=== PATIENT | female | born 1955 | race Caucasian/White ===

== ENCOUNTER 2018-10-22 17:16 | Inpatient (IN) | payer MEDICARE, OTHER ==
[2018-10-22] MEDS ORDERED: Sodium Chloride 0.9% 1,000 ML IV ONE ×3 (17:24→19:40)
[2018-10-22] MEDS ORDERED: cefTRIAXone 1 GM in Sodium Chloride 0.9% 50 ML IV ONE (18:26)
--- NOTE | 2018-10-22 18:26 | EDM.PDOC ---
ED HPI GENERAL MEDICAL PROBLEM - General Chief Complaint: General Stated Complaint: ILL Time Seen by Provider: 10/22/18 17:18 Source of Information: Reports: Patient, EMS, Family History Limitations: Reports: No Limitations - History of Present Illness INITIAL COMMENTS - FREE TEXT/NARRATIVE: HISTORY AND PHYSICAL: History of present illness: Patient is a 63-year-old female who presents to the ED today via EMS for concern of fall. Patient's is here in the ED. states he believes patient has fallen and been laid on the ground since Sunday, just 4 days ago. states that he was out of town over the weekend to visit his parents. states that he had enough meals made up for her to the and she only ate one meal that was made for Sunday night. states he came home about an hour prior to arrival to the ED and found her laying next to the couch and saying minimal words. states that she does have decreased mobility in general but is able to walk and get around the house and take care of herself. states patient has a history of diabetes, high blood pressure, and high cholesterol. Patient does states that she has left-sided wrist pain and generalized body pain. Patient states she is unable to recall the events or how long anything is been ongoing. Review of systems: As per history of present illness and below otherwise all systems reviewed and negative. Past medical history: As per history of present illness and as reviewed below otherwise noncontributory. Surgical history: As per history of present illness and as reviewed below otherwise noncontributory. Social history: See social history for further information Family history: As per history of present illness and as reviewed below otherwise noncontributory. Physical exam: General: Patient is alert, oriented to person and place, and in no acute distress. She does give brief 1-2 word responses. Severely disheveled and covered in urine and feces. Patient laying comfortably on exam table. HEENT: Normocephalic, pupils equal and reactive bilaterally, negative for conjunctival pallor or scleral icterus but bilateral scleral erythema / crusting of the eyelids, mucous membranes severely dry, TMs normal bilaterally, throat clear, neck supple, nontender, trachea midline. No drooling or trismus noted. No meningeal signs. No hot potato voice noted. Erythematous area to left forehead / temporal area. Lungs: Clear to auscultation, breath sounds equal bilaterally, chest nontender. Heart: S1S2, regular rate and rhythm without overt murmur Abdomen: Obese, Soft, nondistended, nontender. Negative for masses or hepatosplenomegaly. Negative for costovertebral tenderness. Pelvis: Stable nontender. Genitourinary: Deferred. Rectal: Deferred. Skin: Multiple abrasions of arms and face. There are multiple pressure blisters , one with the skin removed, on the left forearm and hand. Also an abrasion/ removal of skin of the right forearm. Extremities: Negative for cords or calf pain. Neurovascular unremarkable. Neuro: Awake, alert, oriented to person and place. Exam nonfocal. Notes: Dr. Lopez directly involved in patient care. Dr. Balderrama consult on patient and will admit to observation. Voices understanding and is agreeable to plan of care. Denies any further questions or concerns at this time. Diagnostics: Head CT, CBC, CMP, UA, EKG, troponin, bedside glucose, CPK chest x-ray, lactate , blood cultures 2, bilateral wrist x-ray, left hand x-ray, Pelvis XR Therapeutics: Saline, Kessler catheter, Levaquin Impression: Urinary tract infection SIRS Rhabdomyolysis Dehydration Plan: 1. Admit to observation to Dr. Balderrama Definitive disposition and diagnosis as appropriate pending reevaluation and review of above. - Related Data Allergies Allergy/AdvReac Type Severity Reaction Status Date / Time codeine Allergy Headache Verified 10/22/18 19:47 Penicillins Allergy Hives Verified 10/22/18 19:47 propoxyphene [From Darvon] Allergy Cannot Verified 10/22/18 19:47 Remember tetracycline Allergy Cannot Verified 10/22/18 19:47 Remember Home Meds: Home Meds Blood Sugar Diagnostic [[employer] Worldtouch Ultra Blue Test Strp] 1 strip .ROUTE DAILY 11/06 [History] Calcium Carbonate/Vitamin D3 [Calcium 600 + Vit D Tablet] 1 tab PO BID 09/27/17 [History] Pioglitazone [Actos] 15 mg PO DAILY 09/27/17 [History] Sertraline [Zoloft] 100 mg PO DAILY 09/27/17 [History] atorvaSTATin [Lipitor] 10 mg PO DAILY 09/27/17 [History] buPROPion [buPROPion XL] 150 mg PO DAILY 09/27/17 [History] hydroCHLOROthiazide [Hydrochlorothiazide] 12.5 - 20 mg PO DAILY 09/27/17 [ History] risperiDONE 2 mg PO DAILY 09/27/17 [History] traZODone HCl [Trazodone HCl] 100 mg PO BEDTIME 09/27/17 [History] Past Medical History HEENT History: Reports: Impaired Vision Other HEENT History: Wear eyegla Cardiovascular History: Reports: Hypertension Respiratory History: Reports: None Gastrointestinal History: Reports: None Genitourinary History: Reports: Urinary Incontinence 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 ED EXAM, GENERAL - Physical Exam Exam: See Below (See dictation) Course - Vital Signs Last Recorded V/S: Last Vital Signs Temp 36.6 C 10/22/18 19:43 Pulse 113 H 10/22/18 19:43 Resp 18 10/22/18 19:34 BP 139/66 10/22/18 19:43 Pulse Ox 98 10/22/18 19:43 - Orders/Labs/Meds Orders: Active Orders 24 hr Category Date Time Status Admission Status [Patient Status] [ADT] Stat ADT 10/22/18 20:34 Ordered Cardiac Monitoring [RC] . DIRECTED Care 10/22/18 17:24 Active EKG Documentation Completion [RC] STAT Care 10/22/18 17:24 Active Kessler Catheter Insertion [Insert Urinary Catheter] [OM. Care 10/22/18 17:45 Ordered PC] Q24H Glucose [Blood Glucose Check, Bedside] [RC] ONETIME Care 10/22/18 17:24 Active Urinary Catheter Assessment [RC] ASDIRECTED Care 10/22/18 17:36 Active Pelvis 1V or 2V [CR] Stat Exams 10/22/18 19:39 Taken CULTURE BLOOD [BC] Stat Lab 10/22/18 17:59 Received CULTURE BLOOD [BC] Stat Lab 10/22/18 18:09 Received CULTURE URINE [RM] Stat Lab 10/22/18 17:45 Received Levofloxacin/Dextrose 5%-Water [Levaquin in D5W 750 MG/ Med 10/22/18 19:22 Active 150 ML] 750 mg Premix Bag 1 bag IV ONETIME Sodium Chloride 0.9% [Normal Saline] 1,000 ml Med 10/22/18 19:40 Active IV STAT Blood Culture x2 Reflex Set [OM.PC] Stat Oth 10/22/18 17:32 Ordered Medication Orders Levofloxacin/Dextrose 750 mg/ (Premix) 150 mls @ 100 mls/hr IV ONETIME ONE Stop: 10/22/18 20:51 Last Admin: 10/22/18 19:31 Dose: 100 mls/hr Sodium Chloride (Normal Saline) 1,000 mls @ 150 mls/hr IV STAT ONE Stop: 10/23/18 02:19 Last Admin: 10/22/18 19:40 Dose: 150 mls/hr Labs: Laboratory Tests 10/22/18 10/22/18 10/22/18 Range/Units 17:45 17:59 17:59 WBC 26.72 H (4.0-11.0) K/uL RBC 5.90 (4.30-5.90) M/uL Hgb 16.8 H (12.0-16.0) g/dL Hct 50.8 H (36.0-46.0) % MCV 86.1 (80.0-98.0) fL MCH 28.5 (27.0-32.0) pg MCHC 33.1 (31.0-37.0) g/dL RDW Std Deviation 47.6 (28.0-62.0) fl RDW Coeff of Luz 15 (11.0-15.0) % Plt Count 305 (150-400) K/uL MPV 10.70 (7.40-12.00) fL Neut % (Auto) 91.8 H (48.0-80.0) % Lymph % (Auto) 2.6 L (16.0-40.0) % [place] % (Auto) 5.5 (0.0-15.0) % Eos % (Auto) 0.0 (0.0-7.0) % Baso % (Auto) 0.1 (0.0-1.5) % Neut # (Auto) 24.5 H (1.4-5.7) K/uL Lymph # (Auto) 0.7 (0.6-2.4) K/uL [place] # (Auto) 1.5 H (0.0-0.8) K/uL Eos # (Auto) 0.0 (0.0-0.7) K/uL Baso # (Auto) 0.0 (0.0-0.1) K/uL Nucleated RBC % 0.0 /100WBC Nucleated RBCs # 0 K/uL Lactate (0.20-2.00) mmol/L Sodium 146 H (136-145) mmol/L Potassium 4.2 (3.5-5.1) mmol/L Chloride 106 (98-107) mmol/L Carbon Dioxide 25.5 (21.0-32.0) mmol/L BUN 67 H (7.0-18.0) mg/dL Creatinine 1.6 H (0.6-1.0) mg/dL Est Cr Clr Drug Dosing TNP Estimated GFR (MDRD) 32.3 ml/min Glucose 215 H (74-106) mg/dL Calcium 9.6 (8.5-10.1) mg/dL Total Bilirubin 0.6 (0.2-1.0) mg/dL AST 121 H (15-37) IU/L ALT 66 H (14-63) IU/L Alkaline Phosphatase 91 (46-116) U/L Creatine Kinase (26-308) U/L Troponin I < 0.050 (0.000-0.056) ng/mL Total Protein 6.8 (6.4-8.2) g/dL Albumin 3.1 L (3.4-5.0) g/dL Globulin 3.7 (2.6-4.0) g/dL Albumin/Globulin Ratio 0.8 L (0.9-1.6) Lipase 110 (73-393) U/L Urine Color YELLOW Urine Appearance CLOUDY Urine pH 6.0 (5.0-8.0) Ur Specific [place] 1.025 (1.001-1.035) Urine Protein TRACE H (NEGATIVE) mg/dL Urine Glucose (UA) NEGATIVE (NEGATIVE) mg/dL Urine Ketones 15 H (NEGATIVE) mg/dL Urine Occult Blood SMALL H (NEGATIVE) Urine Nitrite NEGATIVE (NEGATIVE) Urine Bilirubin MODERATE H (NEGATIVE) Urine Urobilinogen 0.2 (<2.0) EU/dL Ur Leukocyte Esterase LARGE H (NEGATIVE) Urine RBC 2-4 (0-2/HPF) Urine WBC TO NUMEROUS TO COUNT H (0-5/HPF) Ur Epithelial Cells FEW (NONE-FEW) Urine Bacteria 4+ H (NEGATIVE) Urine Mucus LIGHT (NONE-MOD) 10/22/18 10/22/18 Range/Units 17:59 17:59 WBC (4.0-11.0) K/uL RBC (4.30-5.90) M/uL Hgb (12.0-16.0) g/dL Hct (36.0-46.0) % MCV (80.0-98.0) fL MCH (27.0-32.0) pg MCHC (31.0-37.0) g/dL RDW Std Deviation (28.0-62.0) fl RDW Coeff of Luz (11.0-15.0) % Plt Count (150-400) K/uL MPV (7.40-12.00) fL Neut % (Auto) (48.0-80.0) % Lymph % (Auto) (16.0-40.0) % [place] % (Auto) (0.0-15.0) % Eos % (Auto) (0.0-7.0) % Baso % (Auto) (0.0-1.5) % Neut # (Auto) (1.4-5.7) K/uL Lymph # (Auto) (0.6-2.4) K/uL [place] # (Auto) (0.0-0.8) K/uL Eos # (Auto) (0.0-0.7) K/uL Baso # (Auto) (0.0-0.1) K/uL Nucleated RBC % /100WBC Nucleated RBCs # K/uL Lactate 2.2 H (0.20-2.00) mmol/L Sodium (136-145) mmol/L Potassium (3.5-5.1) mmol/L Chloride (98-107) mmol/L Carbon Dioxide (21.0-32.0) mmol/L BUN (7.0-18.0) mg/dL Creatinine (0.6-1.0) mg/dL Est Cr Clr Drug Dosing Estimated GFR (MDRD) ml/min Glucose (74-106) mg/dL Calcium (8.5-10.1) mg/dL Total Bilirubin (0.2-1.0) mg/dL AST (15-37) IU/L ALT (14-63) IU/L Alkaline Phosphatase (46-116) U/L Creatine Kinase 3290 H (26-308) U/L Troponin I (0.000-0.056) ng/mL Total Protein (6.4-8.2) g/dL Albumin (3.4-5.0) g/dL Globulin (2.6-4.0) g/dL Albumin/Globulin Ratio (0.9-1.6) Lipase (73-393) U/L Urine Color Urine Appearance Urine pH (5.0-8.0) Ur Specific [place] (1.001-1.035) Urine Protein (NEGATIVE) mg/dL Urine Glucose (UA) (NEGATIVE) mg/dL Urine Ketones (NEGATIVE) mg/dL Urine Occult Blood (NEGATIVE) Urine Nitrite (NEGATIVE) Urine Bilirubin (NEGATIVE) Urine Urobilinogen (<2.0) EU/dL Ur Leukocyte Esterase (NEGATIVE) Urine RBC (0-2/HPF) Urine WBC (0-5/HPF) Ur Epithelial Cells (NONE-FEW) Urine Bacteria (NEGATIVE) Urine Mucus (NONE-MOD) Meds: Medications Generic Name Dose Route Start Last Admin Trade Name Freq PRN Reason Stop Dose Admin Levofloxacin/Dextrose 750 mg/ 150 mls @ 100 mls/hr 10/22/18 19:22 10/22/18 19 :31 Premix IV 10/22/18 20:51 100 mls/hr ONETIME ONE Administration Sodium Chloride 1,000 mls @ 150 mls/hr 10/22/18 19:40 10/22/18 19:40 Normal Saline IV 10/23/18 02:19 150 mls/hr STAT ONE Administration Discontinued Medications Generic Name Dose Route Start Last Admin Trade Name Freq PRN Reason Stop Dose Admin Sodium Chloride 1,000 mls @ 999 mls/hr 10/22/18 17:24 10/22/18 18:00 Normal Saline IV 10/22/18 18:24 999 mls/hr BOLUS ONE Administration Ceftriaxone Sodium 1 gm/ 50 mls @ 200 mls/hr 10/22/18 18:26 10/22/18 19:33 Sodium Chloride IV 10/22/18 18:40 Not Given ONETIME ONE Sodium Chloride 1,000 mls @ 999 mls/hr 10/22/18 18:54 10/22/18 19:13 Normal Saline IV 10/22/18 19:54 999 mls/hr STAT ONE Administration Levofloxacin/Dextrose Confirm 10/22/18 19:25 10/22/18 19:34 Levaquin In D5w 750 Mg/150 Ml Administered 10/22/18 19:26 Not Given Dose 150 mls @ as directed IV .STK-MED ONE Departure - Departure Time of Disposition: 20:50 Disposition: Refer to Observation Clinical Impression: Dehydration, SIRS (systemic inflammatory response syndrome) Urinary tract infection Qualifiers: Urinary tract infection type: acute cystitis Hematuria presence: with hematuria Qualified Code(s): N30.01 - Acute cystitis with hematuria Rhabdomyolysis Qualifiers: Rhabdomyolysis type: non-traumatic Qualified Code(s): M62.82 - Rhabdomyolysis - Discharge Information - My Orders Last 24 Hours: My Active Orders 10/22/18 17:24 Cardiac Monitoring [RC] . DIRECTED EKG Documentation Completion [RC] STAT Glucose [Blood Glucose Check, Bedside] [RC] ONETIME 10/22/18 17:36 Urinary Catheter Assessment [RC] ASDIRECTED 10/22/18 17:45 Kessler Catheter Insertion [Insert Urinary Catheter] [OM.PC] Q24H CULTURE URINE [RM] Stat 10/22/18 19:22 Levofloxacin/Dextrose 5%-Water [Levaquin in D5W 750 MG/150 ML] 750 mg Premix Bag 1 bag IV ONETIME 10/22/18 19:39 Pelvis 1V or 2V [CR] Stat 10/22/18 19:40 Sodium Chloride 0.9% [Normal Saline] 1,000 ml IV STAT 10/22/18 20:34 Admission Status [Patient Status] [ADT] Stat - Assessment/Plan Last 24 Hours: My Active Orders 10/22/18 17:24 Cardiac Monitoring [RC] . DIRECTED EKG Documentation Completion [RC] STAT Glucose [Blood Glucose Check, Bedside] [RC] ONETIME 10/22/18 17:36 Urinary Catheter Assessment [RC] ASDIRECTED 10/22/18 17:45 Kessler Catheter Insertion [Insert Urinary Catheter] [OM.PC] Q24H CULTURE URINE [RM] Stat 10/22/18 19:22 Levofloxacin/Dextrose 5%-Water [Levaquin in D5W 750 MG/150 ML] 750 mg Premix Bag 1 bag IV ONETIME 10/22/18 19:39 Pelvis 1V or 2V [CR] Stat 10/22/18 19:40 Sodium Chloride 0.9% [Normal Saline] 1,000 ml IV STAT 10/22/18 20:34 Admission Status [Patient Status] [ADT] Stat
[2018-10-22 18:41] LABS: BLOOD UREA NITROGEN,BUN 67 mg/dL (7.0-18.0); CARBON DIOXIDE,CO2 25.5 mmol/L (21.0-32.0); CHLORIDE,CL 106 mmol/L (98-107); GLUCOSE RANDOM 215 mg/dL (74-106); LIPASE 110 U/L (73-393); POTASSIUM,K 4.2 mmol/L (3.5-5.1); SODIUM,NA 146 mmol/L (136-145)
--- NOTE | 2018-10-22 19:04 | CT ---
INDICATION: Fall TECHNIQUE: CT head without contrast. COMPARISON: None. FINDINGS: CSF spaces: Within normal limits for age. Brain parenchyma and extra-axial spaces: The moscoso-white differentiation is normal. No sign of mass, hemorrhage, or midline shift. No extra-axial fluid collection. Skull base and calvarium: The visualized paranasal sinuses and mastoid air cells demonstrate no acute or significant findings. The visualized orbits are grossly unremarkable. No skull fractures. IMPRESSION: Unremarkable noncontrast head CT. Please note that all CT scans at this facility use dose modulation, iterative reconstruction, and/or weight-based dosing when appropriate to reduce radiation dose to as low as reasonably achievable. Dictated by Ananth Zimmer MD @ Oct 22 2018 6:55PM Signed by Dr. Ananth Zimmer @ Oct 22 2018 7:02PM
[2018-10-22] MEDS ORDERED: Levofloxacin/Dextrose 5%-Water 750 MG in Premix Bag 1 BAG IV ONE (19:22)
[2018-10-22] MEDS ORDERED: Levofloxacin/Dextrose 5%-Water 150 ML IV ONE (19:25)
--- NOTE | 2018-10-22 19:59 | CR ---
INDICATION: fall, unknown length of time laying on floor. sores and blisters TECHNIQUE: Left hand 3 views. COMPARISON: None. FINDINGS: Bones: Alignment is normal. No fractures or bone lesions. Joint spaces: Unremarkable. Soft tissues: Unremarkable. IMPRESSION: Unremarkable left hand. Dictated by: Billy Serrano MD @ 10/22/2018 19:58:09 (Electronically Signed)
--- NOTE | 2018-10-22 20:01 | CR ---
INDICATION: fall, unknown length of time laying on floor. sores and blisters TECHNIQUE: Left forearm 2 views. COMPARISON: None. FINDINGS: Bones: Alignment is normal. No fractures or bone lesions. Joint spaces: Unremarkable. Soft tissues: Unremarkable. IMPRESSION: Unremarkable left forearm. Dictated by: Billy Serrano MD @ 10/22/2018 19:59:34 (Electronically Signed)
--- NOTE | 2018-10-22 20:09 | CR ---
INDICATION: fall, unknown length of time laying on floor TECHNIQUE: Chest 2 views. COMPARISON: None. FINDINGS: Cardiovascular and mediastinum: Heart size and vasculature are normal in caliber and appearance. Mediastinum is within normal limits. Lungs and pleural spaces: Lungs are clear. No sign of infiltrate or mass. No sign of pleural effusion. No pneumothorax. Bones and soft tissues: No significant findings. IMPRESSION: Unremarkable chest. Dictated by: Billy Serrano MD @ 10/22/2018 20:08:52 (Electronically Signed)
--- NOTE | 2018-10-22 20:09 | CR ---
INDICATION: fall, unknown length of time laying on floor. sores and blisters TECHNIQUE: Right forearm 2 views. COMPARISON: None. FINDINGS: Bones: Alignment is normal. No fractures or bone lesions. Joint spaces: Unremarkable. Soft tissues: Unremarkable. IMPRESSION: Unremarkable right forearm. Dictated by: Billy Serrano MD @ 10/22/2018 20:08:05 (Electronically Signed)
--- NOTE | 2018-10-22 21:02 | CR ---
Indication: Fall Technique: Pelvis 1 view Comparison: None Findings: Bones: Alignment is normal. No fractures or bone lesions. Joint spaces: Joint spaces are preserved. No degenerative changes. Soft tissues: Chronic appearing calcification lateral to the right femoral neck is present. Otherwise unremarkable. Impression: No acute or significant finding. Dictated by Ananth Zimmer MD @ Oct 22 2018 8:58PM Signed by Dr. Ananth Zimmer @ Oct 22 2018 9:01PM
[2018-10-23] MEDS ORDERED: oxyCODONE 5 MG Tab PO PRN (00:51)
[2018-10-23] MEDS: Acetaminophen 325 MG Tab PO PRN ×2 (03:09→12:17)
[2018-10-23] MEDS: Sodium Chloride 0.9% 1,000 ML IV SCH ×4 (03:58→23:56)
--- NOTE | 2018-10-23 06:58 | PCM.HP.2 ---
H&P History of Present Illness - General Date of Service: 10/23/18 Admit Problem/Dx: Admission Diagnosis/Problem Admission Diagnosis/Problem Rhabdomyolysis Source of Information: Patient, Old Records History Limitations: Reports: Altered Mental Status - History of Present Illness Initial Comments - Free Text/Narative: The patient is a 63-year-old lady who had presented to the emergency department after a fall. The patient reports that she was on her couch and slid off onto the floor and was unable to get up. The amount of time she was on the floor is uncertain although it could've been as long as 3 days. The patient is a type II diabetic as well as having some psychiatric features and she had been without her medications for approximately 3 days. The patient is unable to say what medication she has been taking. She has denied any pain. She has no nausea or vomiting associated. The patient says that she feels dry and dehydrated. Onset of Symptoms: Reports: Gradual Duration of Symptoms: Reports: Day(s): Location: Reports: Generalized Quality: Reports: Ache Severity: Moderate Improves with: Reports: Medication Worsens with: Reports: Movement Context: Reports: Other (Fallen, unable to get up) Associated Symptoms: Reports: Confusion - Related Data Allergies/Adverse Reactions: Allergies Allergy/AdvReac Type Severity Reaction Status Date / Time codeine Allergy Headache Verified 10/22/18 22:51 Penicillins Allergy Hives Verified 10/22/18 22:51 propoxyphene [From Darvon] Allergy Cannot Verified 10/22/18 22:51 Remember tetracycline Allergy Cannot Verified 10/22/18 22:51 Remember Home Medications: Home Meds Blood Sugar Diagnostic [Acorn[place] Ultra Blue Test Strp] 1 strip .ROUTE DAILY 11/06 [History] Calcium Carbonate/Vitamin D3 [Calcium 600 + Vit D Tablet] 1 tab PO DAILY [History] Pioglitazone [Actos] 15 mg PO DAILY 09/27/17 [History] Sertraline [Zoloft] 150 mg PO DAILY 09/27/17 [History] atorvaSTATin [Lipitor] 10 mg PO BEDTIME 09/27/17 [History] buPROPion [buPROPion XL] 150 mg PO DAILY 09/27/17 [History] risperiDONE 2 mg PO BEDTIME 09/27/17 [History] traZODone HCl [Trazodone HCl] 100 mg PO BEDTIME 09/27/17 [History] Lisinopril/Hydrochlorothiazide [Lisinopril-Hctz 20-12.5 mg Tab] 1 tab PO DAILY 10/23/18 [History] Past Medical History HEENT History: Reports: Impaired Vision, Other (See Below) Other HEENT History: Wear eyeglasses Cardiovascular History: Reports: High Cholesterol, Hypertension Respiratory History: Reports: None Gastrointestinal History: Reports: None Genitourinary History: Reports: Urinary Incontinence 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 OB/BYN History: x2 Musculoskeletal History: Reports: None Neurological History: Reports: None Psychiatric History: Reports: Anxiety, Depression, Mood Swings Endocrine/Metabolic History: Reports: Diabetes, Type II Hematologic History: Reports: None Immunologic History: Reports: None Oncologic (Cancer) History: Reports: None Dermatologic History: Reports: None - Infectious Disease History Infectious Disease History: Reports: Chicken Pox, Rubella - Past Surgical History Head Surgeries/Procedures: Reports: None Female Surgical History: Reports: Section Social & Family History - Family History Family Medical History: Noncontributory - Tobacco Use Smoking Status *Q: Never Smoker Second Hand Smoke Exposure: Yes - Caffeine Use Caffeine Use: Reports: None - Recreational Drug Use Recreational Drug Use: No - Living Situation & Occupation Living situation: Reports: , with Spouse Occupation: Retired H&P Review of Systems - Review of Systems: Review Of Systems: See Below General: Reports: No Symptoms HEENT: Reports: No Symptoms Pulmonary: Reports: No Symptoms Cardiovascular: Reports: No Symptoms Gastrointestinal: Reports: No Symptoms Genitourinary: Reports: No Symptoms Musculoskeletal: Reports: No Symptoms Skin: Reports: Wound Psychiatric: Reports: No Symptoms Neurological: Reports: No Symptoms Hematologic/Lymphatic: Reports: No Symptoms Immunologic: Reports: No Symptoms Exam - Exam Exam: See Below - Vital Signs Vital Signs: Last Vital Signs Temp 36.1 C 10/23/18 04:00 Pulse 111 H 10/23/18 04:00 Resp 18 10/23/18 04:00 BP 126/82 10/23/18 04:00 Pulse Ox 93 L 10/23/18 04:00 Weight: 90 kg - Exam Quality Assessment: No: Supplemental Oxygen General: Alert, Oriented, Cooperative, Other (Body order) HEENT: Conjunctiva Clear, EACs Clear, EOMI, Nares Patent, PERRLA. No: Mucosa Moist & [place] (Dry, poor oral hygiene) Neck: Supple, Trachea Midline Lungs: Clear to Auscultation, Normal Respiratory Effort Cardiovascular: Regular Rate, Regular Rhythm, Normal S1, Normal S2 GI/Abdominal Exam: Normal Bowel Sounds, Soft, No Distention, Other (Obese). No : Guarding, Rigid, Rebound Back Exam: Normal Inspection Extremities: Normal Inspection, No Pedal Edema Skin: Warm, Wound (Abrasions, skin sloughing, arms, left side face cheek) Neurological: Cranial Nerves Intact Neuro Extensive - Mental Status: Alert Psychiatric: Alert. No: Normal Affect (Flat) - Patient Data Lab Results Last 24 hrs: Laboratory Results - last 24 hr 10/22/18 10/22/18 10/22/18 Range/Units 17:45 17:59 17:59 WBC 26.72 H (4.0-11.0) K/uL RBC 5.90 (4.30-5.90) M/uL Hgb 16.8 H (12.0-16.0) g/dL Hct 50.8 H (36.0-46.0) % MCV 86.1 (80.0-98.0) fL MCH 28.5 (27.0-32.0) pg MCHC 33.1 (31.0-37.0) g/dL RDW Std Deviation 47.6 (28.0-62.0) fl RDW Coeff of Luz 15 (11.0-15.0) % Plt Count 305 (150-400) K/uL MPV 10.70 (7.40-12.00) fL Neut % (Auto) 91.8 H (48.0-80.0) % Lymph % (Auto) 2.6 L (16.0-40.0) % Ocean % (Auto) 5.5 (0.0-15.0) % Eos % (Auto) 0.0 (0.0-7.0) % Baso % (Auto) 0.1 (0.0-1.5) % Neut # (Auto) 24.5 H (1.4-5.7) K/uL Lymph # (Auto) 0.7 (0.6-2.4) K/uL Ocean # (Auto) 1.5 H (0.0-0.8) K/uL Eos # (Auto) 0.0 (0.0-0.7) K/uL Baso # (Auto) 0.0 (0.0-0.1) K/uL Nucleated RBC % 0.0 /100WBC Nucleated RBCs # 0 K/uL Lactate (0.20-2.00) mmol/L Sodium 146 H (136-145) mmol/L Potassium 4.2 (3.5-5.1) mmol/L Chloride 106 (98-107) mmol/L Carbon Dioxide 25.5 (21.0-32.0) mmol/L BUN 67 H (7.0-18.0) mg/dL Creatinine 1.6 H (0.6-1.0) mg/dL Est Cr Clr Drug Dosing TNP Estimated GFR (MDRD) 32.3 ml/min Glucose 215 H (74-106) mg/dL Calcium 9.6 (8.5-10.1) mg/dL Total Bilirubin 0.6 (0.2-1.0) mg/dL AST 121 H (15-37) IU/L ALT 66 H (14-63) IU/L Alkaline Phosphatase 91 (46-116) U/L Creatine Kinase (26-308) U/L Troponin I < 0.050 (0.000-0.056) ng/mL Total Protein 6.8 (6.4-8.2) g/dL Albumin 3.1 L (3.4-5.0) g/dL Globulin 3.7 (2.6-4.0) g/dL Albumin/Globulin Ratio 0.8 L (0.9-1.6) Lipase 110 (73-393) U/L Urine Color YELLOW Urine Appearance CLOUDY Urine pH 6.0 (5.0-8.0) Ur Specific [place] 1.025 (1.001-1.035) Urine Protein TRACE H (NEGATIVE) mg/dL Urine Glucose (UA) NEGATIVE (NEGATIVE) mg/dL Urine Ketones 15 H (NEGATIVE) mg/dL Urine Occult Blood SMALL H (NEGATIVE) Urine Nitrite NEGATIVE (NEGATIVE) Urine Bilirubin MODERATE H (NEGATIVE) Urine Urobilinogen 0.2 (<2.0) EU/dL Ur Leukocyte Esterase LARGE H (NEGATIVE) Urine RBC 2-4 (0-2/HPF) Urine WBC TO NUMEROUS TO COUNT H (0-5/HPF) Ur Epithelial Cells FEW (NONE-FEW) Urine Bacteria 4+ H (NEGATIVE) Urine Mucus LIGHT (NONE-MOD) 10/22/18 10/22/18 10/23/18 Range/Units 17:59 17:59 06:02 WBC 17.71 H (4.0-11.0) K/uL RBC 4.76 (4.30-5.90) M/uL Hgb 13.3 (12.0-16.0) g/dL Hct 41.2 (36.0-46.0) % MCV 86.6 (80.0-98.0) fL MCH 27.9 (27.0-32.0) pg MCHC 32.3 (31.0-37.0) g/dL RDW Std Deviation 48.6 (28.0-62.0) fl RDW Coeff of Luz 15 (11.0-15.0) % Plt Count 222 (150-400) K/uL MPV 10.30 (7.40-12.00) fL Neut % (Auto) 86.3 H (48.0-80.0) % Lymph % (Auto) 6.8 L (16.0-40.0) % Ocean % (Auto) 6.9 (0.0-15.0) % Eos % (Auto) 0.0 (0.0-7.0) % Baso % (Auto) 0.0 (0.0-1.5) % Neut # (Auto) 15.3 H (1.4-5.7) K/uL Lymph # (Auto) 1.2 (0.6-2.4) K/uL Ocean # (Auto) 1.2 H (0.0-0.8) K/uL Eos # (Auto) 0.0 (0.0-0.7) K/uL Baso # (Auto) 0.0 (0.0-0.1) K/uL Nucleated RBC % 0.0 /100WBC Nucleated RBCs # 0 K/uL Lactate 2.2 H (0.20-2.00) mmol/L Sodium (136-145) mmol/L Potassium (3.5-5.1) mmol/L Chloride (98-107) mmol/L Carbon Dioxide (21.0-32.0) mmol/L BUN (7.0-18.0) mg/dL Creatinine (0.6-1.0) mg/dL Est Cr Clr Drug Dosing Estimated GFR (MDRD) ml/min Glucose (74-106) mg/dL Calcium (8.5-10.1) mg/dL Total Bilirubin (0.2-1.0) mg/dL AST (15-37) IU/L ALT (14-63) IU/L Alkaline Phosphatase (46-116) U/L Creatine Kinase 3290 H (26-308) U/L Troponin I (0.000-0.056) ng/mL Total Protein (6.4-8.2) g/dL Albumin (3.4-5.0) g/dL Globulin (2.6-4.0) g/dL Albumin/Globulin Ratio (0.9-1.6) Lipase (73-393) U/L Urine Color Urine Appearance Urine pH (5.0-8.0) Ur Specific [place] (1.001-1.035) Urine Protein (NEGATIVE) mg/dL Urine Glucose (UA) (NEGATIVE) mg/dL Urine Ketones (NEGATIVE) mg/dL Urine Occult Blood (NEGATIVE) Urine Nitrite (NEGATIVE) Urine Bilirubin (NEGATIVE) Urine Urobilinogen (<2.0) EU/dL Ur Leukocyte Esterase (NEGATIVE) Urine RBC (0-2/HPF) Urine WBC (0-5/HPF) Ur Epithelial Cells (NONE-FEW) Urine Bacteria (NEGATIVE) Urine Mucus (NONE-MOD) Result Diagrams: 10/23/18 06:02 10/23/18 06:02 - Problem List (1) Rhabdomyolysis SNOMED Code(s): 103165587 ICD Code: M62.82 - RHABDOMYOLYSIS Status: Acute Priority: High Current Visit: Yes Qualifiers: Rhabdomyolysis type: non-traumatic Qualified Code(s): M62.82 - Rhabdomyolysis (2) Urinary tract infection SNOMED Code(s): 82913963 ICD Code: N39.0 - URINARY TRACT INFECTION, SITE NOT SPECIFIED Status: Acute Priority: High Current Visit: Yes Qualifiers: Urinary tract infection type: acute cystitis Hematuria presence: with hematuria Qualified Code(s): N30.01 - Acute cystitis with hematuria (3) Anxiety SNOMED Code(s): 65279779 ICD Code: F41.9 - ANXIETY DISORDER, UNSPECIFIED Status: Chronic Priority : Medium Current Visit: Yes (4) Morbid obesity with BMI of 40.0-44.9, adult SNOMED Code(s): 136315444, 33288169373019 ICD Code: E66.01 - MORBID (SEVERE) OBESITY DUE TO EXCESS CALORIES; Z68.41 - BODY MASS INDEX (BMI) 40.0-44.9, ADULT Status: Chronic Priority: Medium Current Visit: Yes (5) Diabetes mellitus type 2 in obese SNOMED Code(s): 82603064 ICD Code: E11.69 - TYPE 2 DIABETES MELLITUS WITH OTHER SPECIFIED COMPLICATION ; E66.9 - OBESITY, UNSPECIFIED Status: Chronic Priority: Medium Current Visit: Yes (6) Dehydration SNOMED Code(s): 19841421 ICD Code: E86.0 - DEHYDRATION Status: Acute Priority: High Current Visit: Yes Problem List Initiated/Reviewed/Updated: Yes Orders Last 24hrs: Active Orders 24 hr Category Date Time Status Admission Status [Patient Status] [ADT] Stat ADT 10/22/18 20:34 Active Cardiac Monitoring [RC] Q8H Care 10/22/18 17:24 Active Kessler Catheter Insertion [Insert Urinary Catheter] [OM. Care 10/22/18 17:45 Ordered PC] Q24H Urinary Catheter Assessment [RC] ASDIRECTED Care 10/22/18 17:36 Active ADA Diabetic [[place] [employer] Diet] [DIET Diet 10/23/18 Breakfast Active ] COMPREHENSIVE METABOLIC PN,CMP [CHEM] Routine Lab 10/23/18 06:02 Received CREATINE KINASE,CK [CHEM] Routine Lab 10/23/18 06:02 Received CULTURE BLOOD [BC] Stat Lab 10/22/18 17:59 Received CULTURE BLOOD [BC] Stat Lab 10/22/18 18:09 Received CULTURE URINE [RM] Stat Lab 10/22/18 17:45 Received LACTATE DEHYDROGENASE,LDH [CHEM] Q6H Lab 10/23/18 06:02 Received LACTATE DEHYDROGENASE,LDH [CHEM] Q6H Lab 10/23/18 11:11 Ordered LACTATE DEHYDROGENASE,LDH [CHEM] Q6H Lab 10/23/18 17:11 Ordered Acetaminophen [Tylenol] Med 10/23/18 00:51 Active 650 mg PO Q6H PRN Sodium Chloride 0.9% [Normal Saline] 1,000 ml Med 10/23/18 01:00 Active IV ASDIRECTED oxyCODONE Med 10/23/18 00:51 Active 5 mg PO Q4H PRN Blood Culture x2 Reflex Set [OM.PC] Stat Oth 10/22/18 17:32 Ordered Medication Orders Acetaminophen (Tylenol) 650 mg PO Q6H PRN PRN Reason: Pain Last Admin: 10/23/18 03:09 Dose: 650 mg Sodium Chloride (Normal Saline) 1,000 mls @ 150 mls/hr IV ASDIRECTED ERIK Last Admin: 10/23/18 03:58 Dose: 150 mls/hr Oxycodone HCl (Oxycodone) 5 mg PO Q4H PRN PRN Reason: Pain (moderate 4-6) Assessment/Plan Comment:: The patient is a 63-year-old lady who had been admitted to inpatient hospitalization secondary to her rhabdomyolysis. The patient will have IV fluids to correct her hydration as well as renal protection with normal saline at 150 mL per hour. The patient is a diabetic and she will be kept on her appropriate diabetic diet as tolerated and Accu-Cheks before meals and at bedtime. The patient also has been consulted with community health educator. Wound care has also been ordered for the patient's blistering and skin sloughing. The patient's urine is heavily concentrated although some indication of urinary tract infection and she'll be kept on Rocephin 1 g IV on a daily basis. Also she does have a psychiatric history and her examination is consistent with depression/anxiety disorder and should be maintained on her Risperdal. The patient is likely to need significant rehabilitation and PT OT has been ordered to evaluate her. She may be a consideration for fci as there is some concern with regards to self-care deficit. Repeat laboratory studies have been ordered for her for the morning. - Mortality Measure Prognosis:: Good
[2018-10-23 07:12] LABS: POTASSIUM,K 3.4 mmol/L (3.5-5.1)
[2018-10-23] MEDS ORDERED: Ondansetron 4 MG Tab.DIS PO PRN (08:01)
[2018-10-23] MEDS ORDERED: Docusate Sodium 100 MG Cap PO PRN (08:01)
[2018-10-23] MEDS ORDERED: Temazepam 15 MG Cap PO PRN (08:01)
[2018-10-23] MEDS: Hydrochlorothiazide 12.5 MG Cap PO SCH (10:47)
[2018-10-23] MEDS: Pioglitazone 15 MG Tab PO SCH (10:47)
[2018-10-23] MEDS: Sertraline 50 MG Tab PO SCH (10:47)
[2018-10-23] MEDS: Lisinopril 10 MG Tab PO SCH (10:48)
[2018-10-23] MEDS: buPROPion 150 MG Tab.ER PO SCH (10:48)
[2018-10-23] MEDS: CALCIUM CARBONATE PO SCH (10:50)
[2018-10-23] MEDS: VITAMIN D3 PO SCH (10:50)
[2018-10-23] MEDS: Heparin Sodium 5,000 Units/ML Vial SUBCUT SCH ×2 (11:00→17:03)
[2018-10-23] MEDS: Insulin Aspart 100 Units/ML 3 ML Pen SUBCUT SCH ×2 (12:16→17:05)
[2018-10-23] MEDS ORDERED: Levofloxacin/Dextrose 5%-Water 500 MG in Premix Bag 1 BAG IV SCH (17:00)
[2018-10-23] MEDS: traZODone 50 MG Tab PO SCH (21:23)
[2018-10-23] MEDS: atorvaSTATin 10 MG Tab PO SCH (21:23)
[2018-10-23] MEDS: risperiDONE 1 MG Tab PO SCH (21:23)
[2018-10-24] MEDS: Heparin Sodium 5,000 Units/ML Vial SUBCUT SCH ×4 (00:27→23:48)
[2018-10-24] MEDS: Acetaminophen 325 MG Tab PO PRN (03:31)
[2018-10-24] MEDS: Sodium Chloride 0.9% 1,000 ML IV SCH ×3 (06:42→22:08)
--- NOTE | 2018-10-24 07:11 | PCM.PN ---
- General Info Date of Service: 10/24/18 Admission Dx/Problem (Free Text): Admission Diagnosis/Problem Admission Diagnosis/Problem Rhabdomyolysis, multiple open wounds to forearms, anxiety and depression Subjective Update: The patient is a 63-year-old lady who presented to the emergency room after a fall and was found down approximately 3 days later. Today the patient says that she is in no pain. She has been tolerating diet. The patient has no other complaints at the present time. Functional Status: Reports: Pain Controlled - Review of Systems General: Reports: No Symptoms HEENT: Reports: No Symptoms Pulmonary: Reports: No Symptoms Cardiovascular: Reports: No Symptoms Gastrointestinal: Reports: No Symptoms Genitourinary: Reports: No Symptoms Musculoskeletal: Reports: No Symptoms Skin: Reports: No Symptoms Neurological: Reports: No Symptoms Psychiatric: Reports: No Symptoms Systems Review Comment:: The patient is a poor historian - Patient Data Vitals - Most Recent: Last Vital Signs Temp 36.4 C 10/24/18 04:00 Pulse 101 H 10/24/18 04:00 Resp 21 H 10/24/18 04:00 BP 186/73 H 10/24/18 04:00 Pulse Ox 93 L 10/24/18 04:00 Weight - Most Recent: 90 kg I&O - Last 24 Hours: Intake & Output 10/23/18 10/24/18 10/24/18 22:59 06:59 14:59 Intake Total 2027 3233 Output Total 850 Balance 2027 238 Lab Results Last 24 Hours: Laboratory Results - last 24 hr 10/23/18 10/23/18 10/23/18 Range/Units 06:02 06:02 11:23 WBC (4.0-11.0) K/uL RBC (4.30-5.90) M/uL Hgb (12.0-16.0) g/dL Hct (36.0-46.0) % MCV (80.0-98.0) fL MCH (27.0-32.0) pg MCHC (31.0-37.0) g/dL RDW Std Deviation (28.0-62.0) fl RDW Coeff of Luz (11.0-15.0) % Plt Count (150-400) K/uL MPV (7.40-12.00) fL Neut % (Auto) (48.0-80.0) % Lymph % (Auto) (16.0-40.0) % Sabine % (Auto) (0.0-15.0) % Eos % (Auto) (0.0-7.0) % Baso % (Auto) (0.0-1.5) % Neut # (Auto) (1.4-5.7) K/uL Lymph # (Auto) (0.6-2.4) K/uL Sabine # (Auto) (0.0-0.8) K/uL Eos # (Auto) (0.0-0.7) K/uL Baso # (Auto) (0.0-0.1) K/uL Nucleated RBC % /100WBC Nucleated RBCs # K/uL Sodium 149 H (136-145) mmol/L Potassium 3.4 L (3.5-5.1) mmol/L Chloride 114 H (98-107) mmol/L Carbon Dioxide 24.0 (21.0-32.0) mmol/L BUN 45 H (7.0-18.0) mg/dL Creatinine 1.1 H (0.6-1.0) mg/dL Est Cr Clr Drug Dosing 36.62 mL/min Estimated GFR (MDRD) 49.8 ml/min Glucose 154 H (74-106) mg/dL POC Glucose (60-110) mg/dL Calcium 7.7 L (8.5-10.1) mg/dL Total Bilirubin 0.4 (0.2-1.0) mg/dL AST 106 H (15-37) IU/L ALT 56 (14-63) IU/L Alkaline Phosphatase 68 (46-116) U/L Lactate Dehydrogenase 276 H 306 H (81-234) U/L Creatine Kinase 2679 H (26-308) U/L Total Protein 5.0 L (6.4-8.2) g/dL Albumin 2.2 L (3.4-5.0) g/dL Globulin 2.8 (2.6-4.0) g/dL Albumin/Globulin Ratio 0.8 L (0.9-1.6) 10/23/18 10/23/18 10/23/18 Range/Units 11:55 16:38 17:04 WBC (4.0-11.0) K/uL RBC (4.30-5.90) M/uL Hgb (12.0-16.0) g/dL Hct (36.0-46.0) % MCV (80.0-98.0) fL MCH (27.0-32.0) pg MCHC (31.0-37.0) g/dL RDW Std Deviation (28.0-62.0) fl RDW Coeff of Luz (11.0-15.0) % Plt Count (150-400) K/uL MPV (7.40-12.00) fL Neut % (Auto) (48.0-80.0) % Lymph % (Auto) (16.0-40.0) % Sabine % (Auto) (0.0-15.0) % Eos % (Auto) (0.0-7.0) % Baso % (Auto) (0.0-1.5) % Neut # (Auto) (1.4-5.7) K/uL Lymph # (Auto) (0.6-2.4) K/uL Sabine # (Auto) (0.0-0.8) K/uL Eos # (Auto) (0.0-0.7) K/uL Baso # (Auto) (0.0-0.1) K/uL Nucleated RBC % /100WBC Nucleated RBCs # K/uL Sodium (136-145) mmol/L Potassium (3.5-5.1) mmol/L Chloride (98-107) mmol/L Carbon Dioxide (21.0-32.0) mmol/L BUN (7.0-18.0) mg/dL Creatinine (0.6-1.0) mg/dL Est Cr Clr Drug Dosing mL/min Estimated GFR (MDRD) ml/min Glucose (74-106) mg/dL POC Glucose 185 H 108 (60-110) mg/dL Calcium (8.5-10.1) mg/dL Total Bilirubin (0.2-1.0) mg/dL AST (15-37) IU/L ALT (14-63) IU/L Alkaline Phosphatase (46-116) U/L Lactate Dehydrogenase 303 H (81-234) U/L Creatine Kinase (26-308) U/L Total Protein (6.4-8.2) g/dL Albumin (3.4-5.0) g/dL Globulin (2.6-4.0) g/dL Albumin/Globulin Ratio (0.9-1.6) 10/24/18 10/24/18 Range/Units 05:54 06:00 WBC 8.61 (4.0-11.0) K/uL RBC 4.41 (4.30-5.90) M/uL Hgb 12.1 (12.0-16.0) g/dL Hct 38.2 (36.0-46.0) % MCV 86.6 (80.0-98.0) fL MCH 27.4 (27.0-32.0) pg MCHC 31.7 (31.0-37.0) g/dL RDW Std Deviation 48.1 (28.0-62.0) fl RDW Coeff of Luz 15 (11.0-15.0) % Plt Count 150 (150-400) K/uL MPV 10.20 (7.40-12.00) fL Neut % (Auto) 73.2 (48.0-80.0) % Lymph % (Auto) 20.3 (16.0-40.0) % Sabine % (Auto) 6.2 (0.0-15.0) % Eos % (Auto) 0.2 (0.0-7.0) % Baso % (Auto) 0.1 (0.0-1.5) % Neut # (Auto) 6.3 H (1.4-5.7) K/uL Lymph # (Auto) 1.8 (0.6-2.4) K/uL Sabine # (Auto) 0.5 (0.0-0.8) K/uL Eos # (Auto) 0.0 (0.0-0.7) K/uL Baso # (Auto) 0.0 (0.0-0.1) K/uL Nucleated RBC % 0.0 /100WBC Nucleated RBCs # 0 K/uL Sodium (136-145) mmol/L Potassium (3.5-5.1) mmol/L Chloride (98-107) mmol/L Carbon Dioxide (21.0-32.0) mmol/L BUN (7.0-18.0) mg/dL Creatinine (0.6-1.0) mg/dL Est Cr Clr Drug Dosing mL/min Estimated GFR (MDRD) ml/min Glucose (74-106) mg/dL POC Glucose 123 H (60-110) mg/dL Calcium (8.5-10.1) mg/dL Total Bilirubin (0.2-1.0) mg/dL AST (15-37) IU/L ALT (14-63) IU/L Alkaline Phosphatase (46-116) U/L Lactate Dehydrogenase (81-234) U/L Creatine Kinase (26-308) U/L Total Protein (6.4-8.2) g/dL Albumin (3.4-5.0) g/dL Globulin (2.6-4.0) g/dL Albumin/Globulin Ratio (0.9-1.6) Jonny Results Last 24 Hours: Microbiology 10/22/18 18:09 Aerobic Blood Culture - Preliminary Blood - Venous - Lab Draw Anaerobic Blood Culture - Preliminary 10/22/18 17:59 Aerobic Blood Culture - Preliminary Blood - Venous Anaerobic Blood Culture - Preliminary NO GROWTH AFTER 1 DAY Med Orders - Current: Current Medications Acetaminophen (Tylenol) 650 mg PO Q6H PRN PRN Reason: Pain Last Admin: 10/24/18 03:31 Dose: 650 mg Atorvastatin Calcium (Lipitor) 10 mg PO BEDTIME [facility] Last Admin: 10/23/18 21:23 Dose: 10 mg Bupropion HCl (Wellbutrin Xl) 150 mg PO DAILY [facility] Last Admin: 10/23/18 10:48 Dose: 150 mg Docusate Sodium (Colace) 100 mg PO BID PRN PRN Reason: Constipation Heparin Sodium (Porcine) (Heparin Sodium) 5,000 units SUBCUT Q8H [facility] Last Admin: 10/24/18 00:27 Dose: 5,000 units Hydrochlorothiazide (Hydrochlorothiazide) 12.5 mg PO DAILY [facility] Last Admin: 10/23/18 10:47 Dose: 12.5 mg Sodium Chloride (Normal Saline) 1,000 mls @ 150 mls/hr IV ASDIRECTED [facility] Last Admin: 10/24/18 06:42 Dose: 150 mls/hr Levofloxacin/Dextrose 500 mg/ (Premix) 100 mls @ 100 mls/hr IV Q48H [facility] Insulin Aspart (Novolog) 0 unit SUBCUT TIDAC [facility]; Protocol Last Admin: 10/23/18 17:05 Dose: Not Given Lisinopril (Prinivil) 20 mg PO DAILY [facility] Last Admin: 10/23/18 10:48 Dose: 20 mg Ondansetron HCl (Zofran Odt) 4 mg PO Q6H PRN PRN Reason: nausea, able to take PO Oxycodone HCl (Oxycodone) 5 mg PO Q4H PRN PRN Reason: Pain (moderate 4-6) Calcium Carbonate/Vitamin D3 [Calcium 600 + Vit D Tablet] 1 each PO DAILY [facility] Last Admin: 10/23/18 10:50 Dose: Not Given Pioglitazone HCl (Actos) 15 mg PO DAILY [facility] Last Admin: 10/23/18 10:47 Dose: 15 mg Risperidone (Risperidal) 2 mg PO BEDTIME [facility] Last Admin: 10/23/18 21:23 Dose: 2 mg Sertraline HCl (Zoloft) 150 mg PO DAILY [facility] Last Admin: 10/23/18 10:47 Dose: 150 mg Temazepam (Restoril) 15 mg PO BEDTIME PRN PRN Reason: Sleep Trazodone HCl (Trazodone) 100 mg PO BEDTIME [facility] Last Admin: 10/23/18 21:23 Dose: 100 mg Discontinued Medications Sodium Chloride (Normal Saline) 1,000 mls @ 999 mls/hr IV BOLUS ONE Stop: 10/22/18 18:24 Last Admin: 10/22/18 18:00 Dose: 999 mls/hr Ceftriaxone Sodium 1 gm/ (Sodium Chloride) 50 mls @ 200 mls/hr IV ONETIME ONE Stop: 10/22/18 18:40 Last Admin: 10/22/18 19:33 Dose: Not Given Sodium Chloride (Normal Saline) 1,000 mls @ 999 mls/hr IV STAT ONE Stop: 10/22/18 19:54 Last Admin: 10/22/18 19:13 Dose: 999 mls/hr Levofloxacin/Dextrose 750 mg/ (Premix) 150 mls @ 100 mls/hr IV ONETIME ONE Stop: 10/22/18 20:51 Last Admin: 10/22/18 19:31 Dose: 100 mls/hr Levofloxacin/Dextrose (Levaquin In D5w 750 Mg/150 Ml) Confirm Administered Dose 150 mls @ as directed IV .STK-MED ONE Stop: 10/22/18 19:26 Last Admin: 10/22/18 19:34 Dose: Not Given Sodium Chloride (Normal Saline) 1,000 mls @ 150 mls/hr IV STAT ONE Stop: 10/23/18 02:19 Last Admin: 10/22/18 19:40 Dose: 150 mls/hr Levofloxacin/Dextrose 500 mg/ (Premix) 100 mls @ 100 mls/hr IV Q48H [facility] Last Admin: 10/23/18 17:53 Dose: Not Given - Exam Quality Assessment: Supplemental Oxygen General: Alert, Oriented HEENT: Pupils Equal, Pupils Reactive, EOMI. No: Mucous Membr. Moist/[place] (Poor oral hygiene) Neck: Supple, Trachea Midline Lungs: Normal Respiratory Effort, Crackles Cardiovascular: Regular Rate, Regular Rhythm GI/Abdominal Exam: Normal Bowel Sounds, Soft, Non-Tender, No Distention. No: Guarding, Rigid, Rebound, Tender Back Exam: Normal Inspection, Full Range of Motion Extremities: Normal Inspection, Normal Range of Motion, No Pedal Edema Skin: Warm, Dry, Other (Wounds to forearms dressed) Wound/Incisions: Dressing Dry and Intact Neurological: No New Focal Deficit Psy/Mental Status: Alert, Normal Affect, Normal Mood - Problem List & Annotations (1) Gram-positive bacteremia SNOMED Code(s): 349351412135 Code(s): R78.81 - BACTEREMIA Status: Acute Priority: High Current Visit : Yes (2) Rhabdomyolysis SNOMED Code(s): 423752726 Code(s): M62.82 - RHABDOMYOLYSIS Status: Acute Priority: High Current Visit: Yes Qualifiers: Rhabdomyolysis type: non-traumatic Qualified Code(s): M62.82 - Rhabdomyolysis Annotation/Comment:: Improving. (3) Urinary tract infection SNOMED Code(s): 67313768 Code(s): N39.0 - URINARY TRACT INFECTION, SITE NOT SPECIFIED Status: Acute Priority: High Current Visit: Yes Qualifiers: Urinary tract infection type: acute cystitis Hematuria presence: with hematuria Qualified Code(s): N30.01 - Acute cystitis with hematuria (4) Anxiety SNOMED Code(s): 08733137 Code(s): F41.9 - ANXIETY DISORDER, UNSPECIFIED Status: Chronic Priority: Medium Current Visit: Yes (5) Morbid obesity with BMI of 40.0-44.9, adult SNOMED Code(s): 375170621, 37396350411380 Code(s): E66.01 - MORBID (SEVERE) OBESITY DUE TO EXCESS CALORIES; Z68.41 - BODY MASS INDEX (BMI) 40.0-44.9, ADULT Status: Chronic Priority: Medium Current Visit: Yes (6) Diabetes mellitus type 2 in obese SNOMED Code(s): 17117576 Code(s): E11.69 - TYPE 2 DIABETES MELLITUS WITH OTHER SPECIFIED COMPLICATION ; E66.9 - OBESITY, UNSPECIFIED Status: Chronic Priority: Medium Current Visit: Yes (7) Dehydration SNOMED Code(s): 71322906 Code(s): E86.0 - DEHYDRATION Status: Resolved Priority: High Current Visit: Yes - Problem List Review Problem List Initiated/Reviewed/Updated: Yes - My Orders Last 24 Hours: My Active Orders 10/23/18 08:01 Blood Glucose Check, Bedside [RC] TIDMEALS Oxygen Therapy [RC] PRN Up With Assistance [RC] ASDIRECTED VTE/DVT Education [RC] PER UNIT ROUTINE Vital Signs [RC] Q4H Consult to Diabetic Nurse Specialist [CONS] Routine OT Evaluation and Treatment [CONS] Routine PT Evaluation and Treatment [CONS] Routine Docusate Sodium [Colace] 100 mg PO BID PRN Ondansetron [Zofran ODT] 4 mg PO Q6H PRN Temazepam [Restoril] 15 mg PO BEDTIME PRN Glucose Management Sub Q Reflex [OM.PC] Click To Edit Resuscitation Status Routine 10/23/18 08:04 Diabetes Education [RC] Click to Edit 10/23/18 08:15 Heparin Sodium 5,000 units SUBCUT Q8H 10/23/18 09:00 Lisinopril [Prinivil] 20 mg PO DAILY Patient's Own Medication [Ptom] 1 each PO DAILY Pioglitazone [Actos] 15 mg PO DAILY Sertraline [Zoloft] 150 mg PO DAILY buPROPion [Wellbutrin XL] 150 mg PO DAILY hydroCHLOROthiazide 12.5 mg PO DAILY 10/23/18 11:30 Insulin Aspart [NovoLOG] See Protocol SUBCUT TIDAC 10/23/18 12:59 PT Evaluation and Treatment [CONS] Routine 10/23/18 21:00 atorvaSTATin [Lipitor] 10 mg PO BEDTIME risperiDONE [RisperiDAL] 2 mg PO BEDTIME traZODone 100 mg PO BEDTIME 10/23/18 Breakfast ADA Diabetic [[employer] Diet] [DIET] 10/24/18 05:54 COMPREHENSIVE METABOLIC PN,CMP [CHEM] AM CREATINE KINASE,CK [CHEM] Routine 10/24/18 19:30 Levofloxacin/Dextrose 5%-Water [Levaquin in D5W 500 MG/100 ML] 500 mg Premix Bag 1 bag IV Q48H - Plan Plan:: The patient is a 63-year-old lady who appears much older than her stated age she had been admitted as an inpatient due to rhabdomyolysis. Patient also had evidence of urinary tract infection and the cultures have grown out pansensitive Escherichia coli. The patient previously had been on Levaquin and this is been changed to Rocephin. She is to have 1 g IV on a daily basis. In the meantime the patient will be kept on IV fluids in order to help her hydration status and her rhabdomyolysis to prevent renal failure. The patient is also undergoing wound care with Xeroform dressing and once care will continue to follow. PTOT is also been following patient. The patient herself should be considered for care home facility for now. I've ordered repeat laboratory studies.
[2018-10-24 07:32] LABS: BLOOD UREA NITROGEN,BUN 16 mg/dL (7.0-18.0); CARBON DIOXIDE,CO2 28.1 mmol/L (21.0-32.0); CHLORIDE,CL 112 mmol/L (98-107); GLUCOSE RANDOM 135 mg/dL (74-106); POTASSIUM,K 3.1 mmol/L (3.5-5.1); SODIUM,NA 147 mmol/L (136-145)
[2018-10-24] MEDS: Insulin Aspart 100 Units/ML 3 ML Pen SUBCUT SCH ×3 (07:59→18:10)
[2018-10-24] MEDS: Lisinopril 10 MG Tab PO SCH (08:51)
[2018-10-24] MEDS: buPROPion 150 MG Tab.ER PO SCH (08:52)
[2018-10-24] MEDS: Hydrochlorothiazide 12.5 MG Cap PO SCH (08:52)
[2018-10-24] MEDS: Pioglitazone 15 MG Tab PO SCH (08:53)
[2018-10-24] MEDS: Sertraline 50 MG Tab PO SCH (08:53)
[2018-10-24] MEDS: VITAMIN D3 PO SCH (08:55)
[2018-10-24] MEDS: CALCIUM CARBONATE PO SCH (08:55)
[2018-10-24] MEDS: cefTRIAXone 1 GM in Premix Bag 1 BAG IV SCH (13:27)
[2018-10-24] MEDS ORDERED: Levofloxacin/Dextrose 5%-Water 500 MG in Premix Bag 1 BAG IV SCH (19:30)
[2018-10-24] MEDS: risperiDONE 1 MG Tab PO SCH (20:46)
[2018-10-24] MEDS: atorvaSTATin 10 MG Tab PO SCH (20:46)
[2018-10-24] MEDS: traZODone 50 MG Tab PO SCH (20:46)
[2018-10-25] MEDS: Sodium Chloride 0.9% 1,000 ML IV SCH ×3 (04:48→18:44)
[2018-10-25] MEDS: Insulin Aspart 100 Units/ML 3 ML Pen SUBCUT SCH ×3 (06:54→18:31)
[2018-10-25 07:46] LABS: BLOOD UREA NITROGEN,BUN 8 mg/dL (7.0-18.0); CARBON DIOXIDE,CO2 28.5 mmol/L (21.0-32.0); CHLORIDE,CL 112 mmol/L (98-107); GLUCOSE RANDOM 117 mg/dL (74-106); SODIUM,NA 147 mmol/L (136-145)
--- NOTE | 2018-10-25 09:07 | PCM.PN ---
- General Info Date of Service: 10/25/18 Admission Dx/Problem (Free Text): Admission Diagnosis/Problem Admission Diagnosis/Problem Rhabdomyolysis, multiple open wounds to forearms, anxiety and depression Subjective Update: The patient is a 63-year-old lady who presented to the emergency department and subsequently admitted secondary to rhabdomyolysis and altered mental status. Today the patient has somewhat improved. She says that she is not in any pain. She has been tolerating diet. She has been feeling weak. Functional Status: Reports: Pain Controlled - Review of Systems General: Reports: Weakness HEENT: Reports: No Symptoms Pulmonary: Reports: No Symptoms Cardiovascular: Reports: No Symptoms Gastrointestinal: Reports: No Symptoms Genitourinary: Reports: No Symptoms Musculoskeletal: Reports: No Symptoms Skin: Reports: Other Neurological: Reports: No Symptoms Psychiatric: Reports: No Symptoms - Patient Data Vitals - Most Recent: Last Vital Signs Temp 36.6 C 10/25/18 07:46 Pulse 92 10/25/18 07:46 Resp 17 10/25/18 07:46 BP 182/87 H 10/25/18 07:46 Pulse Ox 96 10/25/18 07:46 Weight - Most Recent: 90 kg I&O - Last 24 Hours: Intake & Output 10/24/18 10/25/18 10/25/18 22:59 06:59 14:59 Intake Total 2100 1789 Output Total 1300 1350 Balance 800 439 Lab Results Last 24 Hours: Laboratory Results - last 24 hr 10/24/18 10/24/18 10/24/18 Range/Units 11:03 16:12 17:50 WBC (4.0-11.0) K/uL RBC (4.30-5.90) M/uL Hgb (12.0-16.0) g/dL Hct (36.0-46.0) % MCV (80.0-98.0) fL MCH (27.0-32.0) pg MCHC (31.0-37.0) g/dL RDW Std Deviation (28.0-62.0) fl RDW Coeff of Luz (11.0-15.0) % Plt Count (150-400) K/uL MPV (7.40-12.00) fL Neut % (Auto) (48.0-80.0) % Lymph % (Auto) (16.0-40.0) % [place] % (Auto) (0.0-15.0) % Eos % (Auto) (0.0-7.0) % Baso % (Auto) (0.0-1.5) % Neut # (Auto) (1.4-5.7) K/uL Lymph # (Auto) (0.6-2.4) K/uL [place] # (Auto) (0.0-0.8) K/uL Eos # (Auto) (0.0-0.7) K/uL Baso # (Auto) (0.0-0.1) K/uL Nucleated RBC % /100WBC Nucleated RBCs # K/uL Sodium (136-145) mmol/L Potassium (3.5-5.1) mmol/L Chloride (98-107) mmol/L Carbon Dioxide (21.0-32.0) mmol/L BUN (7.0-18.0) mg/dL Creatinine (0.6-1.0) mg/dL Est Cr Clr Drug Dosing mL/min Estimated GFR (MDRD) ml/min Glucose (74-106) mg/dL POC Glucose 207 H 96 (60-110) mg/dL Calcium (8.5-10.1) mg/dL Creatine Kinase (26-308) U/L Urine Color STRAW Urine Appearance CLEAR Urine pH 6.5 (5.0-8.0) Ur Specific [place] 1.010 (1.001-1.035) Urine Protein NEGATIVE (NEGATIVE) mg/dL Urine Glucose (UA) NEGATIVE (NEGATIVE) mg/dL Urine Ketones NEGATIVE (NEGATIVE) mg/dL Urine Occult Blood NEGATIVE (NEGATIVE) Urine Nitrite NEGATIVE (NEGATIVE) Urine Bilirubin NEGATIVE (NEGATIVE) Urine Urobilinogen 0.2 (<2.0) EU/dL Ur Leukocyte Esterase TRACE H (NEGATIVE) Urine RBC 0-2 (0-2/HPF) Urine WBC 2-5 (0-5/HPF) Ur Epithelial Cells RARE (NONE-FEW) Urine Bacteria RARE (NEGATIVE) 10/25/18 10/25/18 10/25/18 Range/Units 05:54 05:54 05:54 WBC 7.87 (4.0-11.0) K/uL RBC 4.37 (4.30-5.90) M/uL Hgb 12.0 (12.0-16.0) g/dL Hct 37.5 (36.0-46.0) % MCV 85.8 (80.0-98.0) fL MCH 27.5 (27.0-32.0) pg MCHC 32.0 (31.0-37.0) g/dL RDW Std Deviation 46.3 (28.0-62.0) fl RDW Coeff of Luz 15 (11.0-15.0) % Plt Count 154 (150-400) K/uL MPV 10.40 (7.40-12.00) fL Neut % (Auto) 70.9 (48.0-80.0) % Lymph % (Auto) 22.7 (16.0-40.0) % [place] % (Auto) 5.8 (0.0-15.0) % Eos % (Auto) 0.5 (0.0-7.0) % Baso % (Auto) 0.1 (0.0-1.5) % Neut # (Auto) 5.6 (1.4-5.7) K/uL Lymph # (Auto) 1.8 (0.6-2.4) K/uL [place] # (Auto) 0.5 (0.0-0.8) K/uL Eos # (Auto) 0.0 (0.0-0.7) K/uL Baso # (Auto) 0.0 (0.0-0.1) K/uL Nucleated RBC % 0.0 /100WBC Nucleated RBCs # 0 K/uL Sodium 147 H (136-145) mmol/L Potassium 3.0 L (3.5-5.1) mmol/L Chloride 112 H (98-107) mmol/L Carbon Dioxide 28.5 (21.0-32.0) mmol/L BUN 8 (7.0-18.0) mg/dL Creatinine 0.5 L (0.6-1.0) mg/dL Est Cr Clr Drug Dosing 80.57 mL/min Estimated GFR (MDRD) > 60.0 ml/min Glucose 117 H (74-106) mg/dL POC Glucose (60-110) mg/dL Calcium 7.3 L (8.5-10.1) mg/dL Creatine Kinase 1315 H (26-308) U/L Urine Color Urine Appearance Urine pH (5.0-8.0) Ur Specific [place] (1.001-1.035) Urine Protein (NEGATIVE) mg/dL Urine Glucose (UA) (NEGATIVE) mg/dL Urine Ketones (NEGATIVE) mg/dL Urine Occult Blood (NEGATIVE) Urine Nitrite (NEGATIVE) Urine Bilirubin (NEGATIVE) Urine Urobilinogen (<2.0) EU/dL Ur Leukocyte Esterase (NEGATIVE) Urine RBC (0-2/HPF) Urine WBC (0-5/HPF) Ur Epithelial Cells (NONE-FEW) Urine Bacteria (NEGATIVE) 10/25/18 Range/Units 06:36 WBC (4.0-11.0) K/uL RBC (4.30-5.90) M/uL Hgb (12.0-16.0) g/dL Hct (36.0-46.0) % MCV (80.0-98.0) fL MCH (27.0-32.0) pg MCHC (31.0-37.0) g/dL RDW Std Deviation (28.0-62.0) fl RDW Coeff of Luz (11.0-15.0) % Plt Count (150-400) K/uL MPV (7.40-12.00) fL Neut % (Auto) (48.0-80.0) % Lymph % (Auto) (16.0-40.0) % [place] % (Auto) (0.0-15.0) % Eos % (Auto) (0.0-7.0) % Baso % (Auto) (0.0-1.5) % Neut # (Auto) (1.4-5.7) K/uL Lymph # (Auto) (0.6-2.4) K/uL [place] # (Auto) (0.0-0.8) K/uL Eos # (Auto) (0.0-0.7) K/uL Baso # (Auto) (0.0-0.1) K/uL Nucleated RBC % /100WBC Nucleated RBCs # K/uL Sodium (136-145) mmol/L Potassium (3.5-5.1) mmol/L Chloride (98-107) mmol/L Carbon Dioxide (21.0-32.0) mmol/L BUN (7.0-18.0) mg/dL Creatinine (0.6-1.0) mg/dL Est Cr Clr Drug Dosing mL/min Estimated GFR (MDRD) ml/min Glucose (74-106) mg/dL POC Glucose 110 (60-110) mg/dL Calcium (8.5-10.1) mg/dL Creatine Kinase (26-308) U/L Urine Color Urine Appearance Urine pH (5.0-8.0) Ur Specific [place] (1.001-1.035) Urine Protein (NEGATIVE) mg/dL Urine Glucose (UA) (NEGATIVE) mg/dL Urine Ketones (NEGATIVE) mg/dL Urine Occult Blood (NEGATIVE) Urine Nitrite (NEGATIVE) Urine Bilirubin (NEGATIVE) Urine Urobilinogen (<2.0) EU/dL Ur Leukocyte Esterase (NEGATIVE) Urine RBC (0-2/HPF) Urine WBC (0-5/HPF) Ur Epithelial Cells (NONE-FEW) Urine Bacteria (NEGATIVE) Jonny Results Last 24 Hours: Microbiology 10/22/18 17:59 Aerobic Blood Culture - Preliminary Blood - Venous Anaerobic Blood Culture - Preliminary NO GROWTH AFTER 2 DAYS 10/22/18 18:09 Aerobic Blood Culture - Preliminary Blood - Venous - Lab Draw Anaerobic Blood Culture - Preliminary 10/22/18 17:45 Urine Culture - Final Urine, Clean Catch Escherichia Coli Med Orders - Current: Current Medications Acetaminophen (Tylenol) 650 mg PO Q6H PRN PRN Reason: Pain Last Admin: 10/24/18 03:31 Dose: 650 mg Atorvastatin Calcium (Lipitor) 10 mg PO BEDTIME [facility] Last Admin: 10/24/18 20:46 Dose: 10 mg Bupropion HCl (Wellbutrin Xl) 150 mg PO DAILY [facility] Last Admin: 10/24/18 08:52 Dose: 150 mg Docusate Sodium (Colace) 100 mg PO BID PRN PRN Reason: Constipation Heparin Sodium (Porcine) (Heparin Sodium) 5,000 units SUBCUT Q8H [facility] Last Admin: 10/24/18 23:48 Dose: 5,000 units Hydrochlorothiazide (Hydrochlorothiazide) 12.5 mg PO DAILY [facility] Last Admin: 10/24/18 08:52 Dose: 12.5 mg Sodium Chloride (Normal Saline) 1,000 mls @ 150 mls/hr IV ASDIRECTED [facility] Last Admin: 10/25/18 04:48 Dose: 150 mls/hr Ceftriaxone Sodium/Dextrose 1 (gm/ Premix) 50 mls @ 100 mls/hr IV Q24H [facility] Last Admin: 10/24/18 13:27 Dose: 100 mls/hr Insulin Aspart (Novolog) 0 unit SUBCUT TIDAC [facility]; Protocol Last Admin: 10/25/18 06:54 Dose: Not Given Lisinopril (Prinivil) 20 mg PO DAILY [facility] Last Admin: 10/24/18 08:51 Dose: 20 mg Ondansetron HCl (Zofran Odt) 4 mg PO Q6H PRN PRN Reason: nausea, able to take PO Oxycodone HCl (Oxycodone) 5 mg PO Q4H PRN PRN Reason: Pain (moderate 4-6) Calcium Carbonate/Vitamin D3 [Calcium 600 + Vit D Tablet] 1 each PO DAILY [facility] Last Admin: 10/24/18 08:55 Dose: Not Given Pioglitazone HCl (Actos) 15 mg PO DAILY [facility] Last Admin: 10/24/18 08:53 Dose: 15 mg Potassium Bicarbonate (Klor-Con Ef) 25 meq PO DAILY [facility] Risperidone (Risperidal) 2 mg PO BEDTIME [facility] Last Admin: 10/24/18 20:46 Dose: 2 mg Sertraline HCl (Zoloft) 150 mg PO DAILY [facility] Last Admin: 10/24/18 08:53 Dose: 150 mg Temazepam (Restoril) 15 mg PO BEDTIME PRN PRN Reason: Sleep Trazodone HCl (Trazodone) 100 mg PO BEDTIME [facility] Last Admin: 10/24/18 20:46 Dose: 100 mg Discontinued Medications Sodium Chloride (Normal Saline) 1,000 mls @ 999 mls/hr IV BOLUS ONE Stop: 10/22/18 18:24 Last Admin: 10/22/18 18:00 Dose: 999 mls/hr Ceftriaxone Sodium 1 gm/ (Sodium Chloride) 50 mls @ 200 mls/hr IV ONETIME ONE Stop: 10/22/18 18:40 Last Admin: 10/22/18 19:33 Dose: Not Given Sodium Chloride (Normal Saline) 1,000 mls @ 999 mls/hr IV STAT ONE Stop: 10/22/18 19:54 Last Admin: 10/22/18 19:13 Dose: 999 mls/hr Levofloxacin/Dextrose 750 mg/ (Premix) 150 mls @ 100 mls/hr IV ONETIME ONE Stop: 10/22/18 20:51 Last Admin: 10/22/18 19:31 Dose: 100 mls/hr Levofloxacin/Dextrose (Levaquin In D5w 750 Mg/150 Ml) Confirm Administered Dose 150 mls @ as directed IV .STK-MED ONE Stop: 10/22/18 19:26 Last Admin: 10/22/18 19:34 Dose: Not Given Sodium Chloride (Normal Saline) 1,000 mls @ 150 mls/hr IV STAT ONE Stop: 10/23/18 02:19 Last Admin: 10/22/18 19:40 Dose: 150 mls/hr Levofloxacin/Dextrose 500 mg/ (Premix) 100 mls @ 100 mls/hr IV Q48H [facility] Last Admin: 10/23/18 17:53 Dose: Not Given Levofloxacin/Dextrose 500 mg/ (Premix) 100 mls @ 100 mls/hr IV Q48H ERIK - Exam Quality Assessment: Supplemental Oxygen, Skin Breakdown General: Alert, Oriented, Cooperative, No Acute Distress HEENT: Pupils Equal, Pupils Reactive, EOMI. No: Mucous Membr. Moist/[place] (Poor oral hygiene) Neck: Supple, Trachea Midline Lungs: Normal Respiratory Effort, Crackles Cardiovascular: Regular Rate, Regular Rhythm GI/Abdominal Exam: Normal Bowel Sounds, Soft, Non-Tender, No Distention Back Exam: Normal Inspection Extremities: Normal Inspection, Pedal Edema Skin: Warm, Dry Wound/Incisions: Healing Well, Dressing Dry and Intact Neurological: No New Focal Deficit Psy/Mental Status: Alert, Normal Mood. No: Normal Affect (Flat affect) - Problem List & Annotations (1) Gram-positive bacteremia SNOMED Code(s): 501340344000 Code(s): R78.81 - BACTEREMIA Status: Acute Priority: High Current Visit : Yes (2) Rhabdomyolysis SNOMED Code(s): 565093813 Code(s): M62.82 - RHABDOMYOLYSIS Status: Acute Priority: High Current Visit: Yes Qualifiers: Rhabdomyolysis type: non-traumatic Qualified Code(s): M62.82 - Rhabdomyolysis Annotation/Comment:: Improving. (3) Urinary tract infection SNOMED Code(s): 61236195 Code(s): N39.0 - URINARY TRACT INFECTION, SITE NOT SPECIFIED Status: Acute Priority: High Current Visit: Yes Qualifiers: Urinary tract infection type: acute cystitis Hematuria presence: with hematuria Qualified Code(s): N30.01 - Acute cystitis with hematuria (4) Anxiety SNOMED Code(s): 45082094 Code(s): F41.9 - ANXIETY DISORDER, UNSPECIFIED Status: Chronic Priority: Medium Current Visit: Yes (5) Morbid obesity with BMI of 40.0-44.9, adult SNOMED Code(s): 387344483, 74123077936070 Code(s): E66.01 - MORBID (SEVERE) OBESITY DUE TO EXCESS CALORIES; Z68.41 - BODY MASS INDEX (BMI) 40.0-44.9, ADULT Status: Chronic Priority: Medium Current Visit: Yes (6) Diabetes mellitus type 2 in obese SNOMED Code(s): 65520613 Code(s): E11.69 - TYPE 2 DIABETES MELLITUS WITH OTHER SPECIFIED COMPLICATION ; E66.9 - OBESITY, UNSPECIFIED Status: Chronic Priority: Medium Current Visit: Yes (7) Dehydration SNOMED Code(s): 38632591 Code(s): E86.0 - DEHYDRATION Status: Resolved Priority: High Current Visit: Yes - Problem List Review Problem List Initiated/Reviewed/Updated: Yes - My Orders Last 24 Hours: My Active Orders 10/24/18 12:45 cefTRIAXone [Rocephin in Dextrose,Iso-Osm 1 GM/50 ML] 1 gm Premix Bag 1 bag IV Q24H 10/24/18 13:44 Communication Order [RC] PRN 10/25/18 09:00 Potassium Bicarbonate [Klor-Con EF] 25 meq PO DAILY - Plan Plan:: The patient is a 63-year-old lady who is doing somewhat better today. The patient's overall affect continues to be flat and she will be kept on her current psychiatric medications. Her rhabdomyolysis is improved somewhat and this will be rechecked in the morning. Patient's vital signs will continue to be monitored. I've also ordered that she continue with the IV fluids to help hydration for now. The patient is undergoing wound care to help with the wounds or blisters on her arms. I feel the patient should be appropriate for long-term service. The patient will also be continued on Rocephin 1 g IV daily with regards to her and sensitive Escherichia coli urinary tract infection. PTOT will be continued. The patient should be appropriate for discharge in 1-2 days.
[2018-10-25] MEDS: Heparin Sodium 5,000 Units/ML Vial SUBCUT SCH ×2 (09:30→16:38)
[2018-10-25] MEDS: Hydrochlorothiazide 12.5 MG Cap PO SCH (09:31)
[2018-10-25] MEDS: buPROPion 150 MG Tab.ER PO SCH (09:31)
[2018-10-25] MEDS: Sertraline 50 MG Tab PO SCH (09:31)
[2018-10-25] MEDS: Potassium Bicarbonate 25 MEQ Tab.EFF PO SCH (09:32)
[2018-10-25] MEDS: Lisinopril 10 MG Tab PO SCH (09:32)
[2018-10-25] MEDS: Pioglitazone 15 MG Tab PO SCH (09:32)
[2018-10-25] MEDS: CALCIUM CARBONATE PO SCH (09:34)
[2018-10-25] MEDS: VITAMIN D3 PO SCH (09:34)
[2018-10-25] MEDS: cefTRIAXone 1 GM in Premix Bag 1 BAG IV SCH (12:21)
[2018-10-25] MEDS: risperiDONE 1 MG Tab PO SCH (20:29)
[2018-10-25] MEDS: atorvaSTATin 10 MG Tab PO SCH (20:29)
[2018-10-25] MEDS: traZODone 50 MG Tab PO SCH (20:29)
[2018-10-26] MEDS: Heparin Sodium 5,000 Units/ML Vial SUBCUT SCH ×4 (00:17→23:45)
[2018-10-26] MEDS: Sodium Chloride 0.9% 1,000 ML IV SCH ×3 (01:32→15:50)
[2018-10-26 06:42] LABS: BLOOD UREA NITROGEN,BUN 8 mg/dL (7.0-18.0); CHLORIDE,CL 112 mmol/L (98-107); GLUCOSE RANDOM 115 mg/dL (74-106); SODIUM,NA 146 mmol/L (136-145)
[2018-10-26] MEDS: Insulin Aspart 100 Units/ML 3 ML Pen SUBCUT SCH ×3 (06:43→17:51)
--- NOTE | 2018-10-26 07:19 | PCM.PN ---
- General Info Date of Service: 10/26/18 Admission Dx/Problem (Free Text): Admission Diagnosis/Problem Admission Diagnosis/Problem Rhabdomyolysis, multiple open wounds to forearms, anxiety and depression Subjective Update: The patient is a 63-year-old lady who had been admitted to acute hospitalization on October 23, 2018 after being found from a fall where she had been lying for approximately 3 days. She was admitted for rhabdomyolysis and urinary tract infection. The patient today says that she feels somewhat better. She has denied any pain. The patient has been tolerating her diabetic diet. Functional Status: Reports: Pain Controlled - Review of Systems General: Reports: No Symptoms HEENT: Reports: No Symptoms Pulmonary: Reports: No Symptoms Cardiovascular: Reports: No Symptoms Gastrointestinal: Reports: No Symptoms Genitourinary: Reports: No Symptoms Musculoskeletal: Reports: No Symptoms Skin: Reports: No Symptoms Neurological: Reports: No Symptoms Psychiatric: Reports: No Symptoms - Patient Data Vitals - Most Recent: Last Vital Signs Temp 36.4 C 10/26/18 03:47 Pulse 89 10/26/18 03:47 Resp 17 10/26/18 03:47 BP 159/67 H 10/26/18 03:47 Pulse Ox 98 10/26/18 03:47 Weight - Most Recent: 90 kg I&O - Last 24 Hours: Intake & Output 10/25/18 10/26/18 10/26/18 22:59 06:59 14:59 Intake Total 2603 2037 Output Total 2360 1250 Balance 243 787 Lab Results Last 24 Hours: Laboratory Results - last 24 hr 10/25/18 10/25/18 10/25/18 Range/Units 05:54 05:54 11:32 WBC (4.0-11.0) K/uL RBC (4.30-5.90) M/uL Hgb (12.0-16.0) g/dL Hct (36.0-46.0) % MCV (80.0-98.0) fL MCH (27.0-32.0) pg MCHC (31.0-37.0) g/dL RDW Std Deviation (28.0-62.0) fl RDW Coeff of Luz (11.0-15.0) % Plt Count (150-400) K/uL MPV (7.40-12.00) fL Add Manual Diff Neutrophils % (Manual) (48.0-80.0) % Lymphocytes % (Manual) (16.0-40.0) % Monocytes % (Manual) (0.0-15.0) % Eosinophils % (Manual) (0.0-7.0) % Basophils % (Manual) (0.0-1.5) % Myelocytes % % Nucleated RBC % /100WBC Absolute Seg Neuts (1.4-5.7) Lymphocytes # (Manual) (0.6-2.4) Monocytes # (Manual) (0.0-0.8) Eosinophils # (Manual) (0.0-0.7) Basophils # (Manual) (0.0-0.1) Absolute Myelocytes Nucleated RBCs # K/uL Sodium 147 H (136-145) mmol/L Potassium 3.0 L (3.5-5.1) mmol/L Chloride 112 H (98-107) mmol/L Carbon Dioxide 28.5 (21.0-32.0) mmol/L BUN 8 (7.0-18.0) mg/dL Creatinine 0.5 L (0.6-1.0) mg/dL Est Cr Clr Drug Dosing 80.57 mL/min Estimated GFR (MDRD) > 60.0 ml/min Glucose 117 H (74-106) mg/dL POC Glucose 198 H (60-110) mg/dL Calcium 7.3 L (8.5-10.1) mg/dL Creatine Kinase 1315 H (26-308) U/L 10/25/18 10/26/18 10/26/18 Range/Units 15:44 05:58 06:10 WBC 8.88 (4.0-11.0) K/uL RBC 4.48 (4.30-5.90) M/uL Hgb 12.4 (12.0-16.0) g/dL Hct 38.6 (36.0-46.0) % MCV 86.2 (80.0-98.0) fL MCH 27.7 (27.0-32.0) pg MCHC 32.1 (31.0-37.0) g/dL RDW Std Deviation 46.9 (28.0-62.0) fl RDW Coeff of Luz 15 (11.0-15.0) % Plt Count 158 (150-400) K/uL MPV 10.00 (7.40-12.00) fL Add Manual Diff YES Neutrophils % (Manual) 68 (48.0-80.0) % Lymphocytes % (Manual) 21 (16.0-40.0) % Monocytes % (Manual) 7 (0.0-15.0) % Eosinophils % (Manual) 1 (0.0-7.0) % Basophils % (Manual) 1 (0.0-1.5) % Myelocytes % 2 % Nucleated RBC % 0.0 /100WBC Absolute Seg Neuts 6.0 H (1.4-5.7) Lymphocytes # (Manual) 1.9 (0.6-2.4) Monocytes # (Manual) 0.6 (0.0-0.8) Eosinophils # (Manual) 0.1 (0.0-0.7) Basophils # (Manual) 0.1 (0.0-0.1) Absolute Myelocytes 0.2 Nucleated RBCs # 0 K/uL Sodium (136-145) mmol/L Potassium (3.5-5.1) mmol/L Chloride (98-107) mmol/L Carbon Dioxide (21.0-32.0) mmol/L BUN (7.0-18.0) mg/dL Creatinine (0.6-1.0) mg/dL Est Cr Clr Drug Dosing mL/min Estimated GFR (MDRD) ml/min Glucose (74-106) mg/dL POC Glucose 176 H 109 (60-110) mg/dL Calcium (8.5-10.1) mg/dL Creatine Kinase (26-308) U/L 10/26/18 Range/Units 06:10 WBC (4.0-11.0) K/uL RBC (4.30-5.90) M/uL Hgb (12.0-16.0) g/dL Hct (36.0-46.0) % MCV (80.0-98.0) fL MCH (27.0-32.0) pg MCHC (31.0-37.0) g/dL RDW Std Deviation (28.0-62.0) fl RDW Coeff of Luz (11.0-15.0) % Plt Count (150-400) K/uL MPV (7.40-12.00) fL Add Manual Diff Neutrophils % (Manual) (48.0-80.0) % Lymphocytes % (Manual) (16.0-40.0) % Monocytes % (Manual) (0.0-15.0) % Eosinophils % (Manual) (0.0-7.0) % Basophils % (Manual) (0.0-1.5) % Myelocytes % % Nucleated RBC % /100WBC Absolute Seg Neuts (1.4-5.7) Lymphocytes # (Manual) (0.6-2.4) Monocytes # (Manual) (0.0-0.8) Eosinophils # (Manual) (0.0-0.7) Basophils # (Manual) (0.0-0.1) Absolute Myelocytes Nucleated RBCs # K/uL Sodium 146 H (136-145) mmol/L Potassium 4.0 (3.5-5.1) mmol/L Chloride 112 H (98-107) mmol/L Carbon Dioxide 28.0 (21.0-32.0) mmol/L BUN 8 (7.0-18.0) mg/dL Creatinine 0.6 (0.6-1.0) mg/dL Est Cr Clr Drug Dosing 67.14 mL/min Estimated GFR (MDRD) > 60.0 ml/min Glucose 115 H (74-106) mg/dL POC Glucose (60-110) mg/dL Calcium 7.7 L (8.5-10.1) mg/dL Creatine Kinase (26-308) U/L Jonny Results Last 24 Hours: Microbiology 10/22/18 17:59 Aerobic Blood Culture - Final Blood - Venous Staphylococcus Epidermidis Anaerobic Blood Culture - Preliminary Gram Positive Cocci 10/22/18 18:09 Aerobic Blood Culture - Final Blood - Venous - Lab Draw Staphylococcus Epidermidis Anaerobic Blood Culture - Final Staphylococcus Epidermidis Med Orders - Current: Current Medications Acetaminophen (Tylenol) 650 mg PO Q6H PRN PRN Reason: Pain Last Admin: 10/24/18 03:31 Dose: 650 mg Atorvastatin Calcium (Lipitor) 10 mg PO BEDTIME E[facility]K Last Admin: 10/25/18 20:29 Dose: 10 mg Bupropion HCl (Wellbutrin Xl) 150 mg PO DAILY ERIK Last Admin: 10/25/18 09:31 Dose: 150 mg Docusate Sodium (Colace) 100 mg PO BID PRN PRN Reason: Constipation Heparin Sodium (Porcine) (Heparin Sodium) 5,000 units SUBCUT Q8H [facility] Last Admin: 10/26/18 00:17 Dose: 5,000 units Hydrochlorothiazide (Hydrochlorothiazide) 12.5 mg PO DAILY [facility] Last Admin: 10/25/18 09:31 Dose: 12.5 mg Sodium Chloride (Normal Saline) 1,000 mls @ 150 mls/hr IV ASDIRECTED [facility] Last Admin: 10/26/18 01:32 Dose: 150 mls/hr Ceftriaxone Sodium/Dextrose 1 (gm/ Premix) 50 mls @ 100 mls/hr IV Q24H [facility] Last Admin: 10/25/18 12:21 Dose: 100 mls/hr Insulin Aspart (Novolog) 0 unit SUBCUT TIDAC [facility]; Protocol Last Admin: 10/26/18 06:43 Dose: Not Given Lisinopril (Prinivil) 20 mg PO DAILY [facility] Last Admin: 10/25/18 09:32 Dose: 20 mg Ondansetron HCl (Zofran Odt) 4 mg PO Q6H PRN PRN Reason: nausea, able to take PO Oxycodone HCl (Oxycodone) 5 mg PO Q4H PRN PRN Reason: Pain (moderate 4-6) Calcium Carbonate/Vitamin D3 [Calcium 600 + Vit D Tablet] 1 each PO DAILY [facility] Last Admin: 10/25/18 09:34 Dose: Not Given Metronidazole (Vaginal Gel 0.75%) 0 each VAG BEDTIME [facility] Pioglitazone HCl (Actos) 15 mg PO DAILY [facility] Last Admin: 10/25/18 09:32 Dose: 15 mg Potassium Bicarbonate (Klor-Con Ef) 25 meq PO DAILY [facility] Last Admin: 10/25/18 09:32 Dose: 25 meq Risperidone (Risperidal) 2 mg PO BEDTIME [facility] Last Admin: 10/25/18 20:29 Dose: 2 mg Sertraline HCl (Zoloft) 150 mg PO DAILY [facility] Last Admin: 10/25/18 09:31 Dose: 150 mg Temazepam (Restoril) 15 mg PO BEDTIME PRN PRN Reason: Sleep Trazodone HCl (Trazodone) 100 mg PO BEDTIME [facility] Last Admin: 10/25/18 20:29 Dose: 100 mg Discontinued Medications Sodium Chloride (Normal Saline) 1,000 mls @ 999 mls/hr IV BOLUS ONE Stop: 10/22/18 18:24 Last Admin: 10/22/18 18:00 Dose: 999 mls/hr Ceftriaxone Sodium 1 gm/ (Sodium Chloride) 50 mls @ 200 mls/hr IV ONETIME ONE Stop: 10/22/18 18:40 Last Admin: 10/22/18 19:33 Dose: Not Given Sodium Chloride (Normal Saline) 1,000 mls @ 999 mls/hr IV STAT ONE Stop: 10/22/18 19:54 Last Admin: 10/22/18 19:13 Dose: 999 mls/hr Levofloxacin/Dextrose 750 mg/ (Premix) 150 mls @ 100 mls/hr IV ONETIME ONE Stop: 10/22/18 20:51 Last Admin: 10/22/18 19:31 Dose: 100 mls/hr Levofloxacin/Dextrose (Levaquin In D5w 750 Mg/150 Ml) Confirm Administered Dose 150 mls @ as directed IV .STK-MED ONE Stop: 10/22/18 19:26 Last Admin: 10/22/18 19:34 Dose: Not Given Sodium Chloride (Normal Saline) 1,000 mls @ 150 mls/hr IV STAT ONE Stop: 10/23/18 02:19 Last Admin: 10/22/18 19:40 Dose: 150 mls/hr Levofloxacin/Dextrose 500 mg/ (Premix) 100 mls @ 100 mls/hr IV Q48H [facility] Last Admin: 10/23/18 17:53 Dose: Not Given Levofloxacin/Dextrose 500 mg/ (Premix) 100 mls @ 100 mls/hr IV Q48H ERI[facility] - Exam Quality Assessment: Supplemental Oxygen General: Alert, Oriented, Cooperative, Other (Patient is morbidly obese. She appears much older than stated age.) HEENT: Pupils Equal, Pupils Reactive, EOMI Neck: Supple, Trachea Midline Lungs: Clear to Auscultation, Normal Respiratory Effort Cardiovascular: Regular Rate, Regular Rhythm GI/Abdominal Exam: Normal Bowel Sounds, Soft, No Distention Back Exam: Normal Inspection (Age-related) Extremities: Normal Inspection (Age appropriate), Pedal Edema Skin: Warm, Dry, Other (Dressings clean and dry on wounds) Wound/Incisions: Dressing Dry and Intact Neurological: No New Focal Deficit Psy/Mental Status: Alert. No: Normal Affect (Flat affect) - Problem List & Annotations (1) Rhabdomyolysis SNOMED Code(s): 248572876 Code(s): M62.82 - RHABDOMYOLYSIS Status: Acute Priority: High Current Visit: Yes Qualifiers: Rhabdomyolysis type: non-traumatic Qualified Code(s): M62.82 - Rhabdomyolysis Annotation/Comment:: Improving. (2) Urinary tract infection SNOMED Code(s): 80664557 Code(s): N39.0 - URINARY TRACT INFECTION, SITE NOT SPECIFIED Status: Acute Priority: High Current Visit: Yes Qualifiers: Urinary tract infection type: acute cystitis Hematuria presence: with hematuria Qualified Code(s): N30.01 - Acute cystitis with hematuria (3) Anxiety SNOMED Code(s): 87573302 Code(s): F41.9 - ANXIETY DISORDER, UNSPECIFIED Status: Chronic Priority: Medium Current Visit: Yes (4) Morbid obesity with BMI of 40.0-44.9, adult SNOMED Code(s): 755950118, 19929545494679 Code(s): E66.01 - MORBID (SEVERE) OBESITY DUE TO EXCESS CALORIES; Z68.41 - BODY MASS INDEX (BMI) 40.0-44.9, ADULT Status: Chronic Priority: Medium Current Visit: Yes (5) Diabetes mellitus type 2 in obese SNOMED Code(s): 70912427 Code(s): E11.69 - TYPE 2 DIABETES MELLITUS WITH OTHER SPECIFIED COMPLICATION ; E66.9 - OBESITY, UNSPECIFIED Status: Chronic Priority: Medium Current Visit: Yes (6) Dehydration SNOMED Code(s): 58260151 Code(s): E86.0 - DEHYDRATION Status: Resolved Priority: High Current Visit: Yes (7) Gram-positive bacteremia SNOMED Code(s): 087262925059 Code(s): R78.81 - BACTEREMIA Status: Resolved Priority: High Current Visit: Yes Annotation/Comment:: Staph epidermidis - Problem List Review Problem List Initiated/Reviewed/Updated: Yes - My Orders Last 24 Hours: My Active Orders 10/25/18 09:00 Potassium Bicarbonate [Klor-Con EF] 25 meq PO DAILY 10/26/18 21:00 Patient's Own Medication [Ptom] 0 each VAG BEDTIME - Plan Plan:: The patient is 63-year-old lady who is doing better today. There was noted previously on her arms and left side of her face are improving. She is less erythema. The patient is overall affect continues to remain flat and she'll be kept on her psychiatric medicines. Patient's rhabdomyolysis is improved. He'll continue to have her vital signs monitored and medications adjusted as necessary. The patient's UTI has grown pansensitive Escherichia coli and she will be continued on the Rocephin for now. Patient we transition to oral antibiotics prior to discharge. The patient has been encouraged to set up for meals and PTOT should continue to evaluate. The patient's previously noted bacteremia likely a contaminant secondary to staph epidermidis. Bacteremia is considered resolved. The patient should be appropriate for discharge in 1-2 days.
[2018-10-26] MEDS: Lisinopril 10 MG Tab PO SCH (09:39)
[2018-10-26] MEDS: Sertraline 50 MG Tab PO SCH (09:40)
[2018-10-26] MEDS: Hydrochlorothiazide 12.5 MG Cap PO SCH (09:40)
[2018-10-26] MEDS: Pioglitazone 15 MG Tab PO SCH (09:41)
[2018-10-26] MEDS: buPROPion 150 MG Tab.ER PO SCH (09:41)
[2018-10-26] MEDS: CALCIUM CARBONATE PO SCH (09:43)
[2018-10-26] MEDS: VITAMIN D3 PO SCH (09:43)
[2018-10-26] MEDS: cefTRIAXone 1 GM in Premix Bag 1 BAG IV SCH (13:26)
[2018-10-26] MEDS: Potassium Bicarbonate 25 MEQ Tab.EFF PO SCH (13:26)
[2018-10-26] MEDS ORDERED: hydrALAZINE 20 MG/ML SDV IVPUSH PRN (17:16)
[2018-10-26] MEDS ORDERED: hydrALAZINE 20 MG/ML SDV IVPUSH ONE (17:16)
[2018-10-26] MEDS: risperiDONE 1 MG Tab PO SCH (20:25)
[2018-10-26] MEDS: traZODone 50 MG Tab PO SCH (20:25)
[2018-10-26] MEDS: atorvaSTATin 10 MG Tab PO SCH (20:25)
[2018-10-26] MEDS: METRONIDAZOLE VAGINAL VAG SCH (22:12)
[2018-10-27] MEDS: Insulin Aspart 100 Units/ML 3 ML Pen SUBCUT SCH ×3 (06:33→17:54)
--- NOTE | 2018-10-27 07:17 | PCM.PN ---
- General Info Date of Service: 10/27/18 Admission Dx/Problem (Free Text): Admission Diagnosis/Problem Admission Diagnosis/Problem Rhabdomyolysis, multiple open wounds to forearms, anxiety and depression Subjective Update: The patient is a 63-year-old lady who has been admitted to acute hospitalization since October 23, 2018. The patient had been found down and had been on the floor for as long as 36 hours. She had been admitted for rhabdomyolysis. She also has wounds on her arms that are healing. The patient today says that she's feeling better. She has denied any pain. Patient also has been going to the bathroom on her own. Functional Status: Reports: Pain Controlled - Review of Systems General: Reports: No Symptoms HEENT: Reports: No Symptoms Pulmonary: Reports: No Symptoms Cardiovascular: Reports: No Symptoms Gastrointestinal: Reports: No Symptoms Genitourinary: Reports: No Symptoms Musculoskeletal: Reports: No Symptoms Skin: Reports: No Symptoms Neurological: Reports: No Symptoms Psychiatric: Reports: No Symptoms - Patient Data Vitals - Most Recent: Last Vital Signs Temp 36.5 C 10/27/18 04:54 Pulse 101 H 10/27/18 04:54 Resp 18 10/27/18 04:54 BP 156/62 H 10/27/18 04:54 Pulse Ox 93 L 10/27/18 04:54 Weight - Most Recent: 90 kg I&O - Last 24 Hours: Intake & Output 10/26/18 10/27/18 10/27/18 22:59 06:59 14:59 Intake Total 2939 300 Output Total 2550 2800 Balance 389 -2500 Lab Results Last 24 Hours: Laboratory Results - last 24 hr 10/26/18 10/26/18 10/26/18 Range/Units 11:12 12:14 15:17 POC Glucose 186 H 164 H 135 H (60-110) mg/dL 10/26/18 10/27/18 Range/Units 17:49 06:01 POC Glucose 123 H 116 H (60-110) mg/dL Jonny Results Last 24 Hours: Microbiology 10/22/18 18:09 Aerobic Blood Culture - Final Blood - Venous - Lab Draw Staphylococcus Epidermidis Anaerobic Blood Culture - Final Staphylococcus Epidermidis 10/22/18 17:59 Aerobic Blood Culture - Final Blood - Venous Staphylococcus Epidermidis Anaerobic Blood Culture - Preliminary Gram Positive Cocci Med Orders - Current: Current Medications Acetaminophen (Tylenol) 650 mg PO Q6H PRN PRN Reason: Pain Last Admin: 10/24/18 03:31 Dose: 650 mg Atorvastatin Calcium (Lipitor) 10 mg PO BEDTIME [facility] Last Admin: 10/26/18 20:25 Dose: 10 mg Bupropion HCl (Wellbutrin Xl) 150 mg PO DAILY [facility] Last Admin: 10/26/18 09:41 Dose: 150 mg Docusate Sodium (Colace) 100 mg PO BID PRN PRN Reason: Constipation Heparin Sodium (Porcine) (Heparin Sodium) 5,000 units SUBCUT Q8H [facility] Last Admin: 10/26/18 23:45 Dose: 5,000 units Hydralazine HCl (Apresoline) 10 mg IVPUSH Q6H PRN PRN Reason: Hypertension Last Admin: 10/27/18 00:01 Dose: 10 mg Hydrochlorothiazide (Hydrochlorothiazide) 12.5 mg PO DAILY [facility] Last Admin: 10/26/18 09:40 Dose: 12.5 mg Ceftriaxone Sodium/Dextrose 1 (gm/ Premix) 50 mls @ 100 mls/hr IV Q24H [facility] Last Admin: 10/26/18 13:26 Dose: 100 mls/hr Insulin Aspart (Novolog) 0 unit SUBCUT TIDAC [facility]; Protocol Last Admin: 10/27/18 06:33 Dose: Not Given Lisinopril (Prinivil) 20 mg PO DAILY [facility] Last Admin: 10/26/18 09:39 Dose: 20 mg Ondansetron HCl (Zofran Odt) 4 mg PO Q6H PRN PRN Reason: nausea, able to take PO Oxycodone HCl (Oxycodone) 5 mg PO Q4H PRN PRN Reason: Pain (moderate 4-6) Calcium Carbonate/Vitamin D3 [Calcium 600 + Vit D Tablet] 1 each PO DAILY [facility] Last Admin: 10/26/18 09:43 Dose: Not Given Metronidazole (Vaginal Gel 0.75%) 0 each VAG BEDTIME [facility] Last Admin: 10/26/18 22:12 Dose: Not Given Pioglitazone HCl (Actos) 15 mg PO DAILY [facility] Last Admin: 10/26/18 09:41 Dose: 15 mg Potassium Bicarbonate (Klor-Con Ef) 25 meq PO DAILY [facility] Last Admin: 10/26/18 13:26 Dose: 25 meq Risperidone (Risperidal) 2 mg PO BEDTIME [facility] Last Admin: 10/26/18 20:25 Dose: 2 mg Sertraline HCl (Zoloft) 150 mg PO DAILY ERIK Last Admin: 10/26/18 09:40 Dose: 150 mg Temazepam (Restoril) 15 mg PO BEDTIME PRN PRN Reason: Sleep Trazodone HCl (Trazodone) 100 mg PO BEDTIME ERIK Last Admin: 10/26/18 20:25 Dose: 100 mg Discontinued Medications Hydralazine HCl (Apresoline) 10 mg IVPUSH ONETIME ONE Stop: 10/26/18 17:17 Last Admin: 10/26/18 17:27 Dose: 10 mg Sodium Chloride (Normal Saline) 1,000 mls @ 999 mls/hr IV BOLUS ONE Stop: 10/22/18 18:24 Last Admin: 10/22/18 18:00 Dose: 999 mls/hr Ceftriaxone Sodium 1 gm/ (Sodium Chloride) 50 mls @ 200 mls/hr IV ONETIME ONE Stop: 10/22/18 18:40 Last Admin: 10/22/18 19:33 Dose: Not Given Sodium Chloride (Normal Saline) 1,000 mls @ 999 mls/hr IV STAT ONE Stop: 10/22/18 19:54 Last Admin: 10/22/18 19:13 Dose: 999 mls/hr Levofloxacin/Dextrose 750 mg/ (Premix) 150 mls @ 100 mls/hr IV ONETIME ONE Stop: 10/22/18 20:51 Last Admin: 10/22/18 19:31 Dose: 100 mls/hr Levofloxacin/Dextrose (Levaquin In D5w 750 Mg/150 Ml) Confirm Administered Dose 150 mls @ as directed IV .STK-MED ONE Stop: 10/22/18 19:26 Last Admin: 10/22/18 19:34 Dose: Not Given Sodium Chloride (Normal Saline) 1,000 mls @ 150 mls/hr IV STAT ONE Stop: 10/23/18 02:19 Last Admin: 10/22/18 19:40 Dose: 150 mls/hr Sodium Chloride (Normal Saline) 1,000 mls @ 150 mls/hr IV ASDIRECTED ERIK Last Admin: 10/26/18 15:50 Dose: 150 mls/hr Levofloxacin/Dextrose 500 mg/ (Premix) 100 mls @ 100 mls/hr IV Q48H [facility] Last Admin: 10/23/18 17:53 Dose: Not Given Levofloxacin/Dextrose 500 mg/ (Premix) 100 mls @ 100 mls/hr IV Q48H [facility] - Exam Quality Assessment: No: Supplemental Oxygen General: Alert, Oriented, Cooperative HEENT: Pupils Equal, Pupils Reactive, EOMI, Mucous Membr. Moist/[place] Neck: Supple, Trachea Midline Lungs: Clear to Auscultation, Normal Respiratory Effort Cardiovascular: Regular Rate, Regular Rhythm GI/Abdominal Exam: Normal Bowel Sounds, No Distention. No: Guarding, Rigid, Rebound Back Exam: No: Normal Inspection (Age appropriate), Full Range of Motion (Age- related restrictions) Skin: Warm, Dry Wound/Incisions: Healing Well, Dressing Dry and Intact Neurological: No New Focal Deficit Psy/Mental Status: Alert, Normal Mood. No: Normal Affect (Flat affect) - Problem List & Annotations (1) Rhabdomyolysis SNOMED Code(s): 745020221 Code(s): M62.82 - RHABDOMYOLYSIS Status: Acute Priority: High Current Visit: Yes Qualifiers: Rhabdomyolysis type: non-traumatic Qualified Code(s): M62.82 - Rhabdomyolysis Annotation/Comment:: Improving. (2) Urinary tract infection SNOMED Code(s): 64501048 Code(s): N39.0 - URINARY TRACT INFECTION, SITE NOT SPECIFIED Status: Acute Priority: High Current Visit: Yes Qualifiers: Urinary tract infection type: acute cystitis Hematuria presence: with hematuria Qualified Code(s): N30.01 - Acute cystitis with hematuria (3) Anxiety SNOMED Code(s): 52322248 Code(s): F41.9 - ANXIETY DISORDER, UNSPECIFIED Status: Chronic Priority: Medium Current Visit: Yes (4) Morbid obesity with BMI of 40.0-44.9, adult SNOMED Code(s): 708517756, 78607670997367 Code(s): E66.01 - MORBID (SEVERE) OBESITY DUE TO EXCESS CALORIES; Z68.41 - BODY MASS INDEX (BMI) 40.0-44.9, ADULT Status: Chronic Priority: Medium Current Visit: Yes (5) Diabetes mellitus type 2 in obese SNOMED Code(s): 31661126 Code(s): E11.69 - TYPE 2 DIABETES MELLITUS WITH OTHER SPECIFIED COMPLICATION ; E66.9 - OBESITY, UNSPECIFIED Status: Chronic Priority: Medium Current Visit: Yes (6) Dehydration SNOMED Code(s): 15179952 Code(s): E86.0 - DEHYDRATION Status: Resolved Priority: High Current Visit: Yes (7) Gram-positive bacteremia SNOMED Code(s): 349194133299 Code(s): R78.81 - BACTEREMIA Status: Resolved Priority: High Current Visit: Yes Annotation/Comment:: Staph epidermidis - Problem List Review Problem List Initiated/Reviewed/Updated: Yes - My Orders Last 24 Hours: My Active Orders 10/26/18 17:16 hydrALAZINE [Apresoline] 10 mg IVPUSH Q6H PRN 10/26/18 21:00 Patient's Own Medication [Ptom] 0 each VAG BEDTIME - Plan Plan:: The patient is a 63-year-old lady who says that she is somewhat better today. Overall, she has some improvement in her moods to her forearms. The patient will be continued on oral fluids to help with rhabdomyolysis. The patient is also on appropriate IV antibiotics and she'll be transitioned to oral antibiotics prior to discharge. I'm concerned that the patient may need to have rehabilitation once rhabdomyolysis is cleared and she is appropriate for discharge. PTOT has been following the patient and this will continue. The patient will also be up to chair for all meals. The patient will also be continued on her psychiatric medications. She should be appropriate for discharge in 1-2 days depending upon desire for [place] or home health. Repeat laboratory testings a been ordered.
[2018-10-27] MEDS: Pioglitazone 15 MG Tab PO SCH (08:23)
[2018-10-27] MEDS: Potassium Bicarbonate 25 MEQ Tab.EFF PO SCH (08:23)
[2018-10-27] MEDS: Lisinopril 10 MG Tab PO SCH (08:24)
[2018-10-27] MEDS: buPROPion 150 MG Tab.ER PO SCH (08:24)
[2018-10-27] MEDS: Hydrochlorothiazide 12.5 MG Cap PO SCH (08:24)
[2018-10-27] MEDS: Heparin Sodium 5,000 Units/ML Vial SUBCUT SCH ×3 (08:24→23:52)
[2018-10-27] MEDS: Sertraline 50 MG Tab PO SCH (08:24)
[2018-10-27] MEDS: CALCIUM CARBONATE PO SCH (08:25)
[2018-10-27] MEDS: VITAMIN D3 PO SCH (08:25)
[2018-10-27 11:05] LABS: BLOOD UREA NITROGEN,BUN 11 mg/dL (7.0-18.0); CHLORIDE,CL 106 mmol/L (98-107); GLUCOSE RANDOM 185 mg/dL (74-106); POTASSIUM,K 4.2 mmol/L (3.5-5.1); SODIUM,NA 142 mmol/L (136-145)
[2018-10-27] MEDS: cefTRIAXone 1 GM in Premix Bag 1 BAG IV SCH (12:46)
[2018-10-27] MEDS: atorvaSTATin 10 MG Tab PO SCH (21:22)
[2018-10-27] MEDS: traZODone 50 MG Tab PO SCH (21:22)
[2018-10-27] MEDS: risperiDONE 1 MG Tab PO SCH (21:22)
[2018-10-27] MEDS: METRONIDAZOLE VAGINAL VAG SCH (21:23)
--- NOTE | 2018-10-28 07:14 | PCM.PN ---
- General Info Date of Service: 10/28/18 Admission Dx/Problem (Free Text): Admission Diagnosis/Problem Admission Diagnosis/Problem Rhabdomyolysis, multiple open wounds to forearms, anxiety and depression Subjective Update: The patient is a 63-year-old lady is doing much better today. She had been admitted since October 23, 2018. Patient's rhabdomyolysis has resolved. Physical therapy has been evaluating the patient. She is denied any pain. She has been tolerating diet. Functional Status: Reports: Pain Controlled - Review of Systems General: Reports: No Symptoms HEENT: Reports: No Symptoms Pulmonary: Reports: No Symptoms Cardiovascular: Reports: No Symptoms Gastrointestinal: Reports: No Symptoms Genitourinary: Reports: No Symptoms Musculoskeletal: Reports: No Symptoms Skin: Reports: No Symptoms Neurological: Reports: No Symptoms Psychiatric: Reports: No Symptoms - Patient Data Vitals - Most Recent: Last Vital Signs Temp 35.9 C 10/28/18 04:00 Pulse 91 10/28/18 04:00 Resp 16 10/28/18 04:00 BP 142/65 H 10/28/18 04:00 Pulse Ox 95 10/28/18 04:00 Weight - Most Recent: 90 kg I&O - Last 24 Hours: Intake & Output 10/27/18 10/28/18 10/28/18 22:59 06:59 14:59 Intake Total 980 470 Output Total 2000 650 Balance -1020 -180 Lab Results Last 24 Hours: Laboratory Results - last 24 hr 10/27/18 10/27/18 10/27/18 Range/Units 10:35 10:35 11:48 WBC 9.78 (4.0-11.0) K/uL RBC 4.51 (4.30-5.90) M/uL Hgb 12.5 (12.0-16.0) g/dL Hct 39.0 (36.0-46.0) % MCV 86.5 (80.0-98.0) fL MCH 27.7 (27.0-32.0) pg MCHC 32.1 (31.0-37.0) g/dL RDW Std Deviation 48.5 (28.0-62.0) fl RDW Coeff of Luz 15 (11.0-15.0) % Plt Count 171 (150-400) K/uL MPV 10.10 (7.40-12.00) fL Add Manual Diff YES Neutrophils % (Manual) 74 (48.0-80.0) % Band Neutrophils % 1 % Lymphocytes % (Manual) 11 L (16.0-40.0) % Monocytes % (Manual) 9 (0.0-15.0) % Eosinophils % (Manual) 1 (0.0-7.0) % Metamyelocytes % 1 % Myelocytes % 1 % Nucleated RBC % 0.0 /100WBC Absolute Seg Neuts 7.2 H (1.4-5.7) Band Neutrophils # 0.1 Lymphocytes # (Manual) 1.1 (0.6-2.4) Monocytes # (Manual) 0.9 H (0.0-0.8) Eosinophils # (Manual) 0.1 (0.0-0.7) Absolute Metamyelocyte 0.1 Absolute Myelocytes 0.1 Nucleated RBCs # 0 K/uL Sodium 142 (136-145) mmol/L Potassium 4.2 (3.5-5.1) mmol/L Chloride 106 (98-107) mmol/L Carbon Dioxide 29.0 (21.0-32.0) mmol/L BUN 11 (7.0-18.0) mg/dL Creatinine 0.8 (0.6-1.0) mg/dL Est Cr Clr Drug Dosing 50.36 mL/min Estimated GFR (MDRD) > 60.0 ml/min Glucose 185 H (74-106) mg/dL POC Glucose 135 H (60-110) mg/dL Calcium 8.7 (8.5-10.1) mg/dL Creatine Kinase 443 H (26-308) U/L 10/27/18 Range/Units 17:37 WBC (4.0-11.0) K/uL RBC (4.30-5.90) M/uL Hgb (12.0-16.0) g/dL Hct (36.0-46.0) % MCV (80.0-98.0) fL MCH (27.0-32.0) pg MCHC (31.0-37.0) g/dL RDW Std Deviation (28.0-62.0) fl RDW Coeff of Luz (11.0-15.0) % Plt Count (150-400) K/uL MPV (7.40-12.00) fL Add Manual Diff Neutrophils % (Manual) (48.0-80.0) % Band Neutrophils % % Lymphocytes % (Manual) (16.0-40.0) % Monocytes % (Manual) (0.0-15.0) % Eosinophils % (Manual) (0.0-7.0) % Metamyelocytes % % Myelocytes % % Nucleated RBC % /100WBC Absolute Seg Neuts (1.4-5.7) Band Neutrophils # Lymphocytes # (Manual) (0.6-2.4) Monocytes # (Manual) (0.0-0.8) Eosinophils # (Manual) (0.0-0.7) Absolute Metamyelocyte Absolute Myelocytes Nucleated RBCs # K/uL Sodium (136-145) mmol/L Potassium (3.5-5.1) mmol/L Chloride (98-107) mmol/L Carbon Dioxide (21.0-32.0) mmol/L BUN (7.0-18.0) mg/dL Creatinine (0.6-1.0) mg/dL Est Cr Clr Drug Dosing mL/min Estimated GFR (MDRD) ml/min Glucose (74-106) mg/dL POC Glucose 115 H (60-110) mg/dL Calcium (8.5-10.1) mg/dL Creatine Kinase (26-308) U/L Med Orders - Current: Current Medications Acetaminophen (Tylenol) 650 mg PO Q6H PRN PRN Reason: Pain Last Admin: 10/24/18 03:31 Dose: 650 mg Atorvastatin Calcium (Lipitor) 10 mg PO BEDTIME [facility] Last Admin: 10/27/18 21:22 Dose: 10 mg Bupropion HCl (Wellbutrin Xl) 150 mg PO DAILY [facility] Last Admin: 10/27/18 08:24 Dose: 150 mg Docusate Sodium (Colace) 100 mg PO BID PRN PRN Reason: Constipation Heparin Sodium (Porcine) (Heparin Sodium) 5,000 units SUBCUT Q8H [facility] Last Admin: 10/27/18 23:52 Dose: 5,000 units Hydralazine HCl (Apresoline) 10 mg IVPUSH Q6H PRN PRN Reason: Hypertension Last Admin: 10/27/18 00:01 Dose: 10 mg Hydrochlorothiazide (Hydrochlorothiazide) 12.5 mg PO DAILY [facility] Last Admin: 10/27/18 08:24 Dose: 12.5 mg Ceftriaxone Sodium/Dextrose 1 (gm/ Premix) 50 mls @ 100 mls/hr IV Q24H [facility] Last Admin: 10/27/18 12:46 Dose: 100 mls/hr Insulin Aspart (Novolog) 0 unit SUBCUT TIDAC [facility]; Protocol Last Admin: 10/27/18 17:54 Dose: Not Given Lisinopril (Prinivil) 20 mg PO DAILY [facility] Last Admin: 10/27/18 08:24 Dose: 20 mg Ondansetron HCl (Zofran Odt) 4 mg PO Q6H PRN PRN Reason: nausea, able to take PO Oxycodone HCl (Oxycodone) 5 mg PO Q4H PRN PRN Reason: Pain (moderate 4-6) Last Admin: 10/27/18 10:07 Dose: 5 mg Calcium Carbonate/Vitamin D3 [Calcium 600 + Vit D Tablet] 1 each PO DAILY [facility] Last Admin: 10/27/18 08:25 Dose: Not Given Metronidazole (Vaginal Gel 0.75%) 0 each VAG BEDTIME [facility] Last Admin: 10/27/18 21:23 Dose: Not Given Pioglitazone HCl (Actos) 15 mg PO DAILY [facility] Last Admin: 10/27/18 08:23 Dose: 15 mg Potassium Bicarbonate (Klor-Con Ef) 25 meq PO DAILY [facility] Last Admin: 10/27/18 08:23 Dose: 25 meq Risperidone (Risperidal) 2 mg PO BEDTIME [facility] Last Admin: 10/27/18 21:22 Dose: 2 mg Sertraline HCl (Zoloft) 150 mg PO DAILY [facility] Last Admin: 10/27/18 08:24 Dose: 150 mg Temazepam (Restoril) 15 mg PO BEDTIME PRN PRN Reason: Sleep Trazodone HCl (Trazodone) 100 mg PO BEDTIME [facility] Last Admin: 10/27/18 21:22 Dose: 100 mg Discontinued Medications Hydralazine HCl (Apresoline) 10 mg IVPUSH ONETIME ONE Stop: 10/26/18 17:17 Last Admin: 10/26/18 17:27 Dose: 10 mg Sodium Chloride (Normal Saline) 1,000 mls @ 999 mls/hr IV BOLUS ONE Stop: 10/22/18 18:24 Last Admin: 10/22/18 18:00 Dose: 999 mls/hr Ceftriaxone Sodium 1 gm/ (Sodium Chloride) 50 mls @ 200 mls/hr IV ONETIME ONE Stop: 10/22/18 18:40 Last Admin: 10/22/18 19:33 Dose: Not Given Sodium Chloride (Normal Saline) 1,000 mls @ 999 mls/hr IV STAT ONE Stop: 10/22/18 19:54 Last Admin: 10/22/18 19:13 Dose: 999 mls/hr Levofloxacin/Dextrose 750 mg/ (Premix) 150 mls @ 100 mls/hr IV ONETIME ONE Stop: 10/22/18 20:51 Last Admin: 10/22/18 19:31 Dose: 100 mls/hr Levofloxacin/Dextrose (Levaquin In D5w 750 Mg/150 Ml) Confirm Administered Dose 150 mls @ as directed IV .STK-MED ONE Stop: 10/22/18 19:26 Last Admin: 10/22/18 19:34 Dose: Not Given Sodium Chloride (Normal Saline) 1,000 mls @ 150 mls/hr IV STAT ONE Stop: 10/23/18 02:19 Last Admin: 10/22/18 19:40 Dose: 150 mls/hr Sodium Chloride (Normal Saline) 1,000 mls @ 150 mls/hr IV ASDIRECTED [facility] Last Admin: 10/26/18 15:50 Dose: 150 mls/hr Levofloxacin/Dextrose 500 mg/ (Premix) 100 mls @ 100 mls/hr IV Q48H [facility] Last Admin: 10/23/18 17:53 Dose: Not Given Levofloxacin/Dextrose 500 mg/ (Premix) 100 mls @ 100 mls/hr IV Q48H [facility] - Exam Quality Assessment: No: Supplemental Oxygen General: Alert, Oriented, Cooperative, No Acute Distress, Other (Appears much older than stated age, obese) HEENT: Pupils Equal, Pupils Reactive, EOMI. No: Mucous Membr. Moist/[place] (Dry) Neck: Supple, Trachea Midline Lungs: Clear to Auscultation, Normal Respiratory Effort Cardiovascular: Regular Rate, Regular Rhythm GI/Abdominal Exam: Normal Bowel Sounds, Soft, No Distention, Other (Obese) Back Exam: Normal Inspection Extremities: Normal Inspection, No Pedal Edema Skin: Warm, Dry, Intact Wound/Incisions: Dressing Dry and Intact Neurological: No New Focal Deficit Psy/Mental Status: Alert, Normal Affect, Normal Mood - Problem List & Annotations (1) Rhabdomyolysis SNOMED Code(s): 660540592 Code(s): M62.82 - RHABDOMYOLYSIS Status: Resolved Priority: High Current Visit: Yes Qualifiers: Rhabdomyolysis type: non-traumatic Qualified Code(s): M62.82 - Rhabdomyolysis Annotation/Comment:: Improving. (2) Urinary tract infection SNOMED Code(s): 84828647 Code(s): N39.0 - URINARY TRACT INFECTION, SITE NOT SPECIFIED Status: Resolved Priority: High Current Visit: Yes Qualifiers: Urinary tract infection type: acute cystitis Hematuria presence: with hematuria Qualified Code(s): N30.01 - Acute cystitis with hematuria (3) Anxiety SNOMED Code(s): 64183523 Code(s): F41.9 - ANXIETY DISORDER, UNSPECIFIED Status: Chronic Priority: Medium Current Visit: Yes (4) Morbid obesity with BMI of 40.0-44.9, adult SNOMED Code(s): 945775206, 39295217426674 Code(s): E66.01 - MORBID (SEVERE) OBESITY DUE TO EXCESS CALORIES; Z68.41 - BODY MASS INDEX (BMI) 40.0-44.9, ADULT Status: Chronic Priority: Medium Current Visit: Yes (5) Diabetes mellitus type 2 in obese SNOMED Code(s): 98581812 Code(s): E11.69 - TYPE 2 DIABETES MELLITUS WITH OTHER SPECIFIED COMPLICATION ; E66.9 - OBESITY, UNSPECIFIED Status: Chronic Priority: Medium Current Visit: Yes (6) Dehydration SNOMED Code(s): 44917908 Code(s): E86.0 - DEHYDRATION Status: Resolved Priority: High Current Visit: Yes (7) Gram-positive bacteremia SNOMED Code(s): 889757493250 Code(s): R78.81 - BACTEREMIA Status: Resolved Priority: High Current Visit: Yes Annotation/Comment:: Staph epidermidis - Problem List Review Problem List Initiated/Reviewed/Updated: Yes - My Orders Last 24 Hours: My Active Orders 10/27/18 07:25 Consult to Home Health [CONS] Routine 10/28/18 06:59 BASIC METABOLIC PANEL,BMP [CHEM] Routine CBC WITH AUTO DIFF [HEME] Routine MAGNESIUM [CHEM] Routine - Plan Plan:: The patient is a 63-year-old lady who is doing better today. Patient's wounds are healing nicely. He still required dressings. The patient's IV fluids have been discontinued. The patient's antibiotics will be discontinued as her urinary tract infection is also resolved. I'm concerned that the patient at this point is not safe to go home secondary to deconditioning as she has been not moving around as much as she should. PTOT will continue to evaluate. The patient should be evaluated for [place] in order to have rehabilitation prior to going home. I'm concerned that if she does fall again she may need to be readmitted. Also the patient be continued on her psychiatric medications.
[2018-10-28 07:52] LABS: BLOOD UREA NITROGEN,BUN 14 mg/dL (7.0-18.0); CARBON DIOXIDE,CO2 31.6 mmol/L (21.0-32.0); CHLORIDE,CL 105 mmol/L (98-107); GLUCOSE RANDOM 114 mg/dL (74-106); POTASSIUM,K 4.1 mmol/L (3.5-5.1); SODIUM,NA 143 mmol/L (136-145)
[2018-10-28] MEDS: Insulin Aspart 100 Units/ML 3 ML Pen SUBCUT SCH ×3 (07:53→17:39)
[2018-10-28] MEDS: Hydrochlorothiazide 12.5 MG Cap PO SCH (09:08)
[2018-10-28] MEDS: buPROPion 150 MG Tab.ER PO SCH (09:08)
[2018-10-28] MEDS: Sertraline 50 MG Tab PO SCH (09:08)
[2018-10-28] MEDS: Pioglitazone 15 MG Tab PO SCH (09:08)
[2018-10-28] MEDS: Potassium Bicarbonate 25 MEQ Tab.EFF PO SCH (09:08)
[2018-10-28] MEDS: CALCIUM CARBONATE PO SCH (09:10)
[2018-10-28] MEDS: VITAMIN D3 PO SCH (09:10)
[2018-10-28] MEDS: Heparin Sodium 5,000 Units/ML Vial SUBCUT SCH ×3 (09:10→23:48)
[2018-10-28] MEDS: Lisinopril 10 MG Tab PO SCH (09:12)
[2018-10-28] MEDS: cefTRIAXone 1 GM in Premix Bag 1 BAG IV SCH (13:00)
[2018-10-28] MEDS: traZODone 50 MG Tab PO SCH (21:04)
[2018-10-28] MEDS: atorvaSTATin 10 MG Tab PO SCH (21:04)
[2018-10-28] MEDS: risperiDONE 1 MG Tab PO SCH (21:04)
[2018-10-28] MEDS: METRONIDAZOLE VAGINAL VAG SCH (21:05)
--- NOTE | 2018-10-29 07:15 | PCM.PN ---
- General Info Date of Service: 10/29/18 Admission Dx/Problem (Free Text): Admission Diagnosis/Problem Admission Diagnosis/Problem Rhabdomyolysis, multiple open wounds to forearms, anxiety and depression Subjective Update: She is a 63-year-old lady who had been admitted to acute hospitalization on October 23, 2018. The patient's rhabdomyolysis is resolved. She has been ambulating. The patient has denied any pain. She has been tolerating her diet. Both patient and patient's her concerned with her urinary incontinence. The patient previously had a urinary catheter and this was removed couple days ago. Patient also had been treated for urinary tract infection. Functional Status: Reports: Pain Controlled - Review of Systems General: Reports: Weakness HEENT: Reports: No Symptoms Pulmonary: Reports: No Symptoms Cardiovascular: Reports: No Symptoms Gastrointestinal: Reports: No Symptoms Genitourinary: Reports: Incontinence Musculoskeletal: Reports: No Symptoms Skin: Reports: Other Neurological: Reports: No Symptoms Psychiatric: Reports: No Symptoms - Patient Data Vitals - Most Recent: Last Vital Signs Temp 35.6 C 10/29/18 05:00 Pulse 87 10/29/18 05:00 Resp 18 10/29/18 05:00 BP 128/59 L 10/29/18 00:00 Pulse Ox 92 L 10/29/18 05:00 Weight - Most Recent: 90 kg I&O - Last 24 Hours: Intake & Output 10/28/18 10/29/18 10/29/18 22:59 06:59 14:59 Intake Total 460 400 Output Total 800 Balance -340 400 Lab Results Last 24 Hours: Laboratory Results - last 24 hr 10/28/18 10/28/18 10/28/18 Range/Units 06:18 07:18 07:18 WBC 10.15 (4.0-11.0) K/uL RBC 4.55 (4.30-5.90) M/uL Hgb 12.7 (12.0-16.0) g/dL Hct 39.5 (36.0-46.0) % MCV 86.8 (80.0-98.0) fL MCH 27.9 (27.0-32.0) pg MCHC 32.2 (31.0-37.0) g/dL RDW Std Deviation 49.3 (28.0-62.0) fl RDW Coeff of Luz 16 H (11.0-15.0) % Plt Count 195 (150-400) K/uL MPV 10.20 (7.40-12.00) fL Add Manual Diff YES Neutrophils % (Manual) 65 (48.0-80.0) % Band Neutrophils % 6 % Lymphocytes % (Manual) 21 (16.0-40.0) % Monocytes % (Manual) 3 (0.0-15.0) % Eosinophils % (Manual) 3 (0.0-7.0) % Metamyelocytes % 1 % Myelocytes % 1 % Nucleated RBC % 0.0 /100WBC Absolute Seg Neuts 6.6 H (1.4-5.7) Band Neutrophils # 0.6 Lymphocytes # (Manual) 2.1 (0.6-2.4) Monocytes # (Manual) 0.3 (0.0-0.8) Eosinophils # (Manual) 0.3 (0.0-0.7) Absolute Metamyelocyte 0.1 Absolute Myelocytes 0.1 Nucleated RBCs # 0 K/uL Sodium 143 (136-145) mmol/L Potassium 4.1 (3.5-5.1) mmol/L Chloride 105 (98-107) mmol/L Carbon Dioxide 31.6 (21.0-32.0) mmol/L BUN 14 (7.0-18.0) mg/dL Creatinine 0.8 (0.6-1.0) mg/dL Est Cr Clr Drug Dosing 50.36 mL/min Estimated GFR (MDRD) > 60.0 ml/min Glucose 114 H (74-106) mg/dL POC Glucose 106 (60-110) mg/dL Calcium 9.0 (8.5-10.1) mg/dL Magnesium 1.7 L (1.8-2.4) mg/dL 10/28/18 10/28/18 10/29/18 Range/Units 12:28 17:16 06:30 WBC (4.0-11.0) K/uL RBC (4.30-5.90) M/uL Hgb (12.0-16.0) g/dL Hct (36.0-46.0) % MCV (80.0-98.0) fL MCH (27.0-32.0) pg MCHC (31.0-37.0) g/dL RDW Std Deviation (28.0-62.0) fl RDW Coeff of Luz (11.0-15.0) % Plt Count (150-400) K/uL MPV (7.40-12.00) fL Add Manual Diff Neutrophils % (Manual) (48.0-80.0) % Band Neutrophils % % Lymphocytes % (Manual) (16.0-40.0) % Monocytes % (Manual) (0.0-15.0) % Eosinophils % (Manual) (0.0-7.0) % Metamyelocytes % % Myelocytes % % Nucleated RBC % /100WBC Absolute Seg Neuts (1.4-5.7) Band Neutrophils # Lymphocytes # (Manual) (0.6-2.4) Monocytes # (Manual) (0.0-0.8) Eosinophils # (Manual) (0.0-0.7) Absolute Metamyelocyte Absolute Myelocytes Nucleated RBCs # K/uL Sodium (136-145) mmol/L Potassium (3.5-5.1) mmol/L Chloride (98-107) mmol/L Carbon Dioxide (21.0-32.0) mmol/L BUN (7.0-18.0) mg/dL Creatinine (0.6-1.0) mg/dL Est Cr Clr Drug Dosing mL/min Estimated GFR (MDRD) ml/min Glucose (74-106) mg/dL POC Glucose 120 H 123 H 107 (60-110) mg/dL Calcium (8.5-10.1) mg/dL Magnesium (1.8-2.4) mg/dL Jonny Results Last 24 Hours: Microbiology 10/22/18 17:59 Aerobic Blood Culture - Final Blood - Venous Staphylococcus Epidermidis Anaerobic Blood Culture - Final NO GROWTH AFTER 5 DAYS Med Orders - Current: Current Medications Acetaminophen (Tylenol) 650 mg PO Q6H PRN PRN Reason: Pain Last Admin: 10/24/18 03:31 Dose: 650 mg Atorvastatin Calcium (Lipitor) 10 mg PO BEDTIME [facility] Last Admin: 10/28/18 21:04 Dose: 10 mg Bupropion HCl (Wellbutrin Xl) 150 mg PO DAILY [facility] Last Admin: 10/28/18 09:08 Dose: 150 mg Docusate Sodium (Colace) 100 mg PO BID PRN PRN Reason: Constipation Heparin Sodium (Porcine) (Heparin Sodium) 5,000 units SUBCUT Q8H [facility] Last Admin: 10/28/18 23:48 Dose: 5,000 units Hydralazine HCl (Apresoline) 10 mg IVPUSH Q6H PRN PRN Reason: Hypertension Last Admin: 10/27/18 00:01 Dose: 10 mg Hydrochlorothiazide (Hydrochlorothiazide) 12.5 mg PO DAILY [facility] Last Admin: 10/28/18 09:08 Dose: 12.5 mg Ceftriaxone Sodium/Dextrose 1 (gm/ Premix) 50 mls @ 100 mls/hr IV Q24H [facility] Last Admin: 10/28/18 13:00 Dose: 100 mls/hr Insulin Aspart (Novolog) 0 unit SUBCUT TIDAC [facility]; Protocol Last Admin: 10/28/18 17:39 Dose: Not Given Lisinopril (Prinivil) 20 mg PO DAILY [facility] Last Admin: 10/28/18 09:12 Dose: 20 mg Ondansetron HCl (Zofran Odt) 4 mg PO Q6H PRN PRN Reason: nausea, able to take PO Oxycodone HCl (Oxycodone) 5 mg PO Q4H PRN PRN Reason: Pain (moderate 4-6) Last Admin: 10/27/18 10:07 Dose: 5 mg Calcium Carbonate/Vitamin D3 [Calcium 600 + Vit D Tablet] 1 each PO DAILY [facility] Last Admin: 10/28/18 09:10 Dose: Not Given Metronidazole (Vaginal Gel 0.75%) 0 each VAG BEDTIME [facility] Last Admin: 10/28/18 21:05 Dose: Not Given Pioglitazone HCl (Actos) 15 mg PO DAILY [facility] Last Admin: 10/28/18 09:08 Dose: 15 mg Potassium Bicarbonate (Klor-Con Ef) 25 meq PO DAILY [facility] Last Admin: 10/28/18 09:08 Dose: 25 meq Risperidone (Risperidal) 2 mg PO BEDTIME [facility] Last Admin: 10/28/18 21:04 Dose: 2 mg Sertraline HCl (Zoloft) 150 mg PO DAILY [facility] Last Admin: 10/28/18 09:08 Dose: 150 mg Temazepam (Restoril) 15 mg PO BEDTIME PRN PRN Reason: Sleep Trazodone HCl (Trazodone) 100 mg PO BEDTIME [facility] Last Admin: 10/28/18 21:04 Dose: 100 mg Discontinued Medications Hydralazine HCl (Apresoline) 10 mg IVPUSH ONETIME ONE Stop: 10/26/18 17:17 Last Admin: 10/26/18 17:27 Dose: 10 mg Sodium Chloride (Normal Saline) 1,000 mls @ 999 mls/hr IV BOLUS ONE Stop: 10/22/18 18:24 Last Admin: 10/22/18 18:00 Dose: 999 mls/hr Ceftriaxone Sodium 1 gm/ (Sodium Chloride) 50 mls @ 200 mls/hr IV ONETIME ONE Stop: 10/22/18 18:40 Last Admin: 10/22/18 19:33 Dose: Not Given Sodium Chloride (Normal Saline) 1,000 mls @ 999 mls/hr IV STAT ONE Stop: 10/22/18 19:54 Last Admin: 10/22/18 19:13 Dose: 999 mls/hr Levofloxacin/Dextrose 750 mg/ (Premix) 150 mls @ 100 mls/hr IV ONETIME ONE Stop: 10/22/18 20:51 Last Admin: 10/22/18 19:31 Dose: 100 mls/hr Levofloxacin/Dextrose (Levaquin In D5w 750 Mg/150 Ml) Confirm Administered Dose 150 mls @ as directed IV .STK-MED ONE Stop: 10/22/18 19:26 Last Admin: 10/22/18 19:34 Dose: Not Given Sodium Chloride (Normal Saline) 1,000 mls @ 150 mls/hr IV STAT ONE Stop: 10/23/18 02:19 Last Admin: 10/22/18 19:40 Dose: 150 mls/hr Sodium Chloride (Normal Saline) 1,000 mls @ 150 mls/hr IV ASDIRECTED [facility] Last Admin: 10/26/18 15:50 Dose: 150 mls/hr Levofloxacin/Dextrose 500 mg/ (Premix) 100 mls @ 100 mls/hr IV Q48H [facility] Last Admin: 10/23/18 17:53 Dose: Not Given Levofloxacin/Dextrose 500 mg/ (Premix) 100 mls @ 100 mls/hr IV Q48H [facility] - Exam Quality Assessment: No: Supplemental Oxygen General: Alert, Oriented, Cooperative, No Acute Distress HEENT: Pupils Equal, Pupils Reactive, EOMI. No: Mucous Membr. Moist/[place] (Dry) Neck: Supple, Trachea Midline Lungs: Clear to Auscultation, Normal Respiratory Effort Cardiovascular: Regular Rate, Regular Rhythm GI/Abdominal Exam: Normal Bowel Sounds, No Distention, Other (Obese) Back Exam: Normal Inspection Extremities: Normal Inspection, No Pedal Edema Skin: Warm, Dry Psy/Mental Status: Alert, Depressed. No: Normal Affect (Flat) - Problem List & Annotations (1) Anxiety SNOMED Code(s): 88879673 Code(s): F41.9 - ANXIETY DISORDER, UNSPECIFIED Status: Chronic Priority: Medium Current Visit: Yes (2) Rhabdomyolysis SNOMED Code(s): 533837905 Code(s): M62.82 - RHABDOMYOLYSIS Status: Resolved Priority: High Current Visit: Yes Qualifiers: Rhabdomyolysis type: non-traumatic Qualified Code(s): M62.82 - Rhabdomyolysis Annotation/Comment:: Improving. (3) Urinary tract infection SNOMED Code(s): 67070434 Code(s): N39.0 - URINARY TRACT INFECTION, SITE NOT SPECIFIED Status: Resolved Priority: High Current Visit: Yes Qualifiers: Urinary tract infection type: acute cystitis Hematuria presence: with hematuria Qualified Code(s): N30.01 - Acute cystitis with hematuria (4) Morbid obesity with BMI of 40.0-44.9, adult SNOMED Code(s): 269348598, [id number] Code(s): E66.01 - MORBID (SEVERE) OBESITY DUE TO EXCESS CALORIES; Z68.41 - BODY MASS INDEX (BMI) 40.0-44.9, ADULT Status: Chronic Priority: Medium Current Visit: Yes (5) Diabetes mellitus type 2 in obese SNOMED Code(s): 53000905 Code(s): E11.69 - TYPE 2 DIABETES MELLITUS WITH OTHER SPECIFIED COMPLICATION ; E66.9 - OBESITY, UNSPECIFIED Status: Chronic Priority: Medium Current Visit: Yes (6) Dehydration SNOMED Code(s): 30596559 Code(s): E86.0 - DEHYDRATION Status: Resolved Priority: High Current Visit: Yes (7) Gram-positive bacteremia SNOMED Code(s): 215556933976 Code(s): R78.81 - BACTEREMIA Status: Resolved Priority: High Current Visit: Yes Annotation/Comment:: Staph epidermidis (8) Urinary incontinence SNOMED Code(s): 225640744 Code(s): R32 - UNSPECIFIED URINARY INCONTINENCE Status: Chronic Priority : Medium Current Visit: Yes Qualifiers: Urinary Incontinence type: other incontinence Qualified Code(s): N39.498 - Other specified urinary incontinence Annotation/Comment:: 5 Years duration - Problem List Review Problem List Initiated/Reviewed/Updated: Yes - My Orders Last 24 Hours: My Active Orders 10/29/18 05:11 BASIC METABOLIC PANEL,BMP [CHEM] AM CBC WITH AUTO DIFF [HEME] AM - Plan Plan:: The patient is a 63-year-old lady who is doing somewhat better today. Primary concern with her and her has been the urinary incontinence which has been chronic and ongoing for approximately 5 years. Have placed the patient on Detrol to help with this and upon discharge will set up patient with an appointment for urology. Repeat laboratory studies have been ordered. PTOT has been walking with the patient and she has been walking the hallways. The patient is to continue with her ambulation. She may need a walker upon discharge. I suspect that the patient will be appropriate for discharge tomorrow. Her wounds are still "recurring wound care and this will continue for now.
[2018-10-29 08:14] LABS: BLOOD UREA NITROGEN,BUN 18 mg/dL (7.0-18.0); CARBON DIOXIDE,CO2 31.2 mmol/L (21.0-32.0); CHLORIDE,CL 104 mmol/L (98-107); GLUCOSE RANDOM 119 mg/dL (74-106); POTASSIUM,K 4.3 mmol/L (3.5-5.1); SODIUM,NA 142 mmol/L (136-145)
[2018-10-29] MEDS: Insulin Aspart 100 Units/ML 3 ML Pen SUBCUT SCH ×3 (08:15→16:11)
[2018-10-29] MEDS: Heparin Sodium 5,000 Units/ML Vial SUBCUT SCH ×2 (08:55→16:11)
[2018-10-29] MEDS: Lisinopril 10 MG Tab PO SCH (08:55)
[2018-10-29] MEDS: buPROPion 150 MG Tab.ER PO SCH (08:56)
[2018-10-29] MEDS: Pioglitazone 15 MG Tab PO SCH ×2 (08:56→08:57)
[2018-10-29] MEDS: Potassium Bicarbonate 25 MEQ Tab.EFF PO SCH (08:56)
[2018-10-29] MEDS: Sertraline 50 MG Tab PO SCH (08:56)
[2018-10-29] MEDS: Hydrochlorothiazide 12.5 MG Cap PO SCH (08:56)
[2018-10-29] MEDS: VITAMIN D3 PO SCH (08:57)
[2018-10-29] MEDS: CALCIUM CARBONATE PO SCH (08:57)
[2018-10-29] MEDS: cefTRIAXone 1 GM in Premix Bag 1 BAG IV SCH ×2 (12:12→12:18)
[2018-10-29] MEDS: traZODone 50 MG Tab PO SCH (20:19)
[2018-10-29] MEDS: atorvaSTATin 10 MG Tab PO SCH (20:19)
[2018-10-29] MEDS: risperiDONE 1 MG Tab PO SCH (20:19)
[2018-10-29] MEDS: METRONIDAZOLE VAGINAL VAG SCH (20:20)
[2018-10-30] MEDS: Heparin Sodium 5,000 Units/ML Vial SUBCUT SCH ×2 (00:28→08:30)
[2018-10-30] MEDS: Insulin Aspart 100 Units/ML 3 ML Pen SUBCUT SCH ×2 (07:44→12:00)
[2018-10-30] MEDS: Potassium Bicarbonate 25 MEQ Tab.EFF PO SCH (08:31)
[2018-10-30] MEDS: Lisinopril 10 MG Tab PO SCH (08:31)
[2018-10-30] MEDS: Hydrochlorothiazide 12.5 MG Cap PO SCH (08:31)
[2018-10-30] MEDS: Sertraline 50 MG Tab PO SCH (08:31)
[2018-10-30] MEDS: buPROPion 150 MG Tab.ER PO SCH (08:31)
[2018-10-30] MEDS: VITAMIN D3 PO SCH (08:33)
[2018-10-30] MEDS: CALCIUM CARBONATE PO SCH (08:33)
[2018-10-30] MEDS: Pioglitazone 15 MG Tab PO SCH (08:34)
--- NOTE | 2018-10-30 09:09 | PCM.DCSUM1 ---
Discharge Summary - Hospital Course HPI Initial Comments: The patient was admitted to acute hospitalization after a fall and not being discovered for approximately 3 days. Patient had significant rhabdomyolysis. Diagnosis: Stroke: No - Discharge Data Discharge Date: 10/30/18 Discharge Disposition: Home, W Home Health Agency 06 Condition: Fair - Referral to Home Health Date of Face to Face Encounter: 10/30/18 Reason for Homebound Status: Assistance in completing ADL's, deconditioning, frequent falls, Poor ambulation Primary Care Physician: Gilles Johnson MD Skilled Need: Assistance and completing of ADLs, strengthening required, home PT OT - Discharge Diagnosis/Problem(s) (1) Anxiety SNOMED Code(s): 15777962 ICD Code: F41.9 - ANXIETY DISORDER, UNSPECIFIED Status: Chronic Priority : Medium Current Visit: Yes (2) Rhabdomyolysis SNOMED Code(s): 231506063 ICD Code: M62.82 - RHABDOMYOLYSIS Status: Resolved Priority: High Current Visit: Yes Problem Details: Improving. Qualifiers: Rhabdomyolysis type: non-traumatic Qualified Code(s): M62.82 - Rhabdomyolysis (3) Urinary tract infection SNOMED Code(s): 69338572 ICD Code: N39.0 - URINARY TRACT INFECTION, SITE NOT SPECIFIED Status: Resolved Priority: High Current Visit: Yes Qualifiers: Urinary tract infection type: acute cystitis Hematuria presence: with hematuria Qualified Code(s): N30.01 - Acute cystitis with hematuria (4) Morbid obesity with BMI of 40.0-44.9, adult SNOMED Code(s): 669936690, 14796442403857 ICD Code: E66.01 - MORBID (SEVERE) OBESITY DUE TO EXCESS CALORIES; Z68.41 - BODY MASS INDEX (BMI) 40.0-44.9, ADULT Status: Chronic Priority: Medium Current Visit: Yes (5) Diabetes mellitus type 2 in obese SNOMED Code(s): 88961777 ICD Code: E11.69 - TYPE 2 DIABETES MELLITUS WITH OTHER SPECIFIED COMPLICATION ; E66.9 - OBESITY, UNSPECIFIED Status: Chronic Priority: Medium Current Visit: Yes (6) Dehydration SNOMED Code(s): 13957218 ICD Code: E86.0 - DEHYDRATION Status: Resolved Priority: High Current Visit: Yes (7) Gram-positive bacteremia SNOMED Code(s): 820276374109 ICD Code: R78.81 - BACTEREMIA Status: Resolved Priority: High Current Visit: Yes Problem Details: Staph epidermidis (8) Urinary incontinence SNOMED Code(s): 801724441 ICD Code: R32 - UNSPECIFIED URINARY INCONTINENCE Status: Chronic Priority : Medium Current Visit: Yes Problem Details: 5 Years duration Qualifiers: Urinary Incontinence type: other incontinence Qualified Code(s): N39.498 - Other specified urinary incontinence - Patient Summary/Data Consults: Consultations 10/23/18 08:01 Consult to Diabetic Nurse Specialist [CONS] Routine OT Evaluation and Treatment [CONS] Routine PT Evaluation and Treatment [CONS] Routine 10/23/18 12:59 PT Evaluation and Treatment [CONS] Routine 10/27/18 07:25 Consult to Home Health [CONS] Routine Hospital Course: The patient is a 63-year-old lady who had presented to the emergency department after a fall. The patient reports that she was on her couch and slid off onto the floor and was unable to get up. The amount of time she was on the floor is uncertain although it could've been as long as 3 days. The patient is a type II diabetic as well as having some psychiatric features and she had been without her medications for approximately 3 days. The patient is unable to say what medication she has been taking. Initially on presentation had a CK which is listed at 3290 units per liter. The patient was placed on aggressive IV hydration for renal protection. The patient also had wounds with blistering and dehiscence of outer skin layer and she had been consulted with wound care with regards to the treatment of these. These were cleaned, dressed and monitored by wound care. Blood cultures have also been obtained on October 22, 2018 which grew out staph epidermidis. The patient had been treated for urinary tract infection and her medications were discontinued as she reached improvement. Throughout the entire course of hospitalization the patient's affect had been blunt and flat. The patient would often reply in single word answers. The patient also had been kept on appropriate diabetic diet. Her blood sugars were also checked 3 times a day before meals. She had been kept on moderate dose insulin sliding scale. The patient and the patient's were also very concerned about her chronic urinary incontinence. Patient's says that this is been going on for approximately 5 years. The patient does say that she has an inability to tell she needs to urinate with some reason has not done anything about that. The patient was started on Detrol LA 2 mg by mouth twice a day to help with this. She is also been recommended to follow-up with urology. The patient had been evaluated by physical therapy and she had been ambulating, although poorly, with a frontwheel walker. The patient also had significant deconditioning. By day of discharge the patient's CK had resolved to normal. The patient's wounds were being addressed and will be followed by home health. The patient had been recommended to continue with her diet as tolerated. She is to have activity as tolerated. The patient has been hemodynamically stable and she has been recommended for discharge along with monitoring by home health. Due to the patient's severe deconditioning and difficulty in ambulation the patient is unable to ambulate more than 20 feet without stopping for rest and also she is unsteady. The patient also have forms which would require skilled care as well as physical therapy and occupational therapy to help her return to a point where she can complete her ADLs by herself. Dr. Johnson as her primary care physician and he will be following the patient. - Patient Instructions Diet: Heart Healthy Diet, Diabetic Diet Activity: As Tolerated Notify Provider of: Fever, Increased Pain - Discharge Plan *PRESCRIPTION DRUG MONITORING PROGRAM REVIEWED*: No *COPY OF PRESCRIPTION DRUG MONITORING REPORT IN PATIENT FRED: No Prescriptions/Med Rec: Tolterodine [Detrol] 2 mg PO BID #60 tablet Home Medications: Home Meds Blood Sugar Diagnostic [Pneurontouch Ultra Blue Test Strp] 1 strip .ROUTE DAILY 11/06 [History] Calcium Carbonate/Vitamin D3 [Calcium 600 + Vit D Tablet] 1 tab PO BID 09/27/17 [History] Pioglitazone [Actos] 15 mg PO DAILY 09/27/17 [History] Sertraline [Zoloft] 150 mg PO DAILY 09/27/17 [History] atorvaSTATin [Lipitor] 10 mg PO BEDTIME 09/27/17 [History] buPROPion [buPROPion XL] 150 mg PO DAILY 09/27/17 [History] risperiDONE 2 mg PO BEDTIME 09/27/17 [History] traZODone HCl [Trazodone HCl] 200 mg PO BEDTIME 09/27/17 [History] Lisinopril/Hydrochlorothiazide [Lisinopril-Hctz 20-12.5 mg Tab] 1 tab PO DAILY 10/23/18 [History] Multivitamin [Multivitamins] 1 tab PO DAILY 10/24/18 [History] metroNIDAZOLE [Metrogel-Vaginal] 70 gm VG DAILY 10/24/18 [History] Tolterodine [Detrol] 2 mg PO BID #60 tablet 10/30/18 [Rx] Other Amb Orders: OT Evaluation and Treatment [CONS] Location: None Selected PT Evaluation and Treatment [CONS] Location: None Selected Oxygen Therapy Mode: Room Air Patient Handouts: Rhabdomyolysis, Tolterodine tablets, Dehydration, Adult, Easy -to-Read, Urinary Tract Infection, Adult Referrals: [facility] [Outside] Gilles Johnson MD [Primary Care Provider] - 11/06/18 3:30 pm Kings Gamble MD [Physician] - 11/20/18 2:15 pm Emil oRsas DPM [Physician] - 11/12/18 11:00 am - Discharge Summary/Plan Comment DC Time >30 min.: Yes - General Info Date of Service: 10/30/18 Admission Dx/Problem (Free Text: Admission Diagnosis/Problem Admission Diagnosis/Problem Rhabdomyolysis, multiple open wounds to forearms, anxiety and depression Subjective Update: Patient doing better today. She has been ambulating although poorly. She is looking forward to going home. Functional Status: Reports: Pain Controlled - Review of Systems General: Reports: No Symptoms HEENT: Reports: No Symptoms Pulmonary: Reports: No Symptoms Cardiovascular: Reports: No Symptoms Gastrointestinal: Reports: No Symptoms Genitourinary: Reports: No Symptoms Musculoskeletal: Reports: No Symptoms Skin: Reports: No Symptoms Neurological: Reports: No Symptoms Psychiatric: Reports: No Symptoms - Patient Data Vitals - Most Recent: Last Vital Signs Temp 35.9 C 10/30/18 08:17 Pulse 86 10/30/18 08:17 Resp 18 10/30/18 08:17 BP 131/61 10/30/18 08:31 Pulse Ox 95 10/30/18 08:17 Weight - Most Recent: 90 kg I&O - Last 24 hours: Intake & Output 10/29/18 10/30/18 10/30/18 22:59 06:59 14:59 Intake Total 640 700 Output Total 350 350 Balance 290 350 Lab Results - Last 24 hrs: Laboratory Results - last 24 hr 10/29/18 10/29/18 10/29/18 Range/Units 11:39 16:09 20:23 POC Glucose 113 H 110 144 H (60-110) mg/dL 10/30/18 Range/Units 06:18 POC Glucose 119 H (60-110) mg/dL EFREM Results - Last 24 hrs: Microbiology 10/22/18 17:59 Aerobic Blood Culture - Final Blood - Venous Staphylococcus Epidermidis Anaerobic Blood Culture - Final NO GROWTH AFTER 5 DAYS Med Orders - Current: Current Medications Acetaminophen (Tylenol) 650 mg PO Q6H PRN PRN Reason: Pain Last Admin: 10/24/18 03:31 Dose: 650 mg Atorvastatin Calcium (Lipitor) 10 mg PO BEDTIME [facility] Last Admin: 10/29/18 20:19 Dose: 10 mg Bupropion HCl (Wellbutrin Xl) 150 mg PO DAILY [facility] Last Admin: 10/30/18 08:31 Dose: 150 mg Docusate Sodium (Colace) 100 mg PO BID PRN PRN Reason: Constipation Heparin Sodium (Porcine) (Heparin Sodium) 5,000 units SUBCUT Q8H [facility] Last Admin: 10/30/18 08:30 Dose: 5,000 units Hydralazine HCl (Apresoline) 10 mg IVPUSH Q6H PRN PRN Reason: Hypertension Last Admin: 10/27/18 00:01 Dose: 10 mg Hydrochlorothiazide (Hydrochlorothiazide) 12.5 mg PO DAILY [facility] Last Admin: 10/30/18 08:31 Dose: 12.5 mg Insulin Aspart (Novolog) 0 unit SUBCUT TIDAC [facility]; Protocol Last Admin: 10/30/18 07:44 Dose: Not Given Lisinopril (Prinivil) 20 mg PO DAILY [facility] Last Admin: 10/30/18 08:31 Dose: 20 mg Ondansetron HCl (Zofran Odt) 4 mg PO Q6H PRN PRN Reason: nausea, able to take PO Oxycodone HCl (Oxycodone) 5 mg PO Q4H PRN PRN Reason: Pain (moderate 4-6) Last Admin: 10/27/18 10:07 Dose: 5 mg Calcium Carbonate/Vitamin D3 [Calcium 600 + Vit D Tablet] 1 each PO DAILY [facility] Last Admin: 10/30/18 08:33 Dose: Not Given Metronidazole (Vaginal Gel 0.75%) 0 each VAG BEDTIME [facility] Last Admin: 10/29/18 20:20 Dose: Not Given Pioglitazone HCl (Actos) 15 mg PO DAILY [facility] Last Admin: 10/30/18 08:34 Dose: 15 mg Potassium Bicarbonate (Klor-Con Ef) 25 meq PO DAILY [facility] Last Admin: 10/30/18 08:31 Dose: 25 meq Risperidone (Risperidal) 2 mg PO BEDTIME [facility] Last Admin: 10/29/18 20:19 Dose: 2 mg Sertraline HCl (Zoloft) 150 mg PO DAILY [facility] Last Admin: 10/30/18 08:31 Dose: 150 mg Temazepam (Restoril) 15 mg PO BEDTIME PRN PRN Reason: Sleep Tolterodine Tartrate (Detrol) 2 mg PO BID [facility] Last Admin: 10/30/18 08:32 Dose: 2 mg Trazodone HCl (Trazodone) 100 mg PO BEDTIME [facility] Last Admin: 10/29/18 20:19 Dose: 100 mg Discontinued Medications Hydralazine HCl (Apresoline) 10 mg IVPUSH ONETIME ONE Stop: 10/26/18 17:17 Last Admin: 10/26/18 17:27 Dose: 10 mg Sodium Chloride (Normal Saline) 1,000 mls @ 999 mls/hr IV BOLUS ONE Stop: 10/22/18 18:24 Last Admin: 10/22/18 18:00 Dose: 999 mls/hr Ceftriaxone Sodium 1 gm/ (Sodium Chloride) 50 mls @ 200 mls/hr IV ONETIME ONE Stop: 10/22/18 18:40 Last Admin: 10/22/18 19:33 Dose: Not Given Sodium Chloride (Normal Saline) 1,000 mls @ 999 mls/hr IV STAT ONE Stop: 10/22/18 19:54 Last Admin: 10/22/18 19:13 Dose: 999 mls/hr Levofloxacin/Dextrose 750 mg/ (Premix) 150 mls @ 100 mls/hr IV ONETIME ONE Stop: 10/22/18 20:51 Last Admin: 10/22/18 19:31 Dose: 100 mls/hr Levofloxacin/Dextrose (Levaquin In D5w 750 Mg/150 Ml) Confirm Administered Dose 150 mls @ as directed IV .STK-MED ONE Stop: 10/22/18 19:26 Last Admin: 10/22/18 19:34 Dose: Not Given Sodium Chloride (Normal Saline) 1,000 mls @ 150 mls/hr IV STAT ONE Stop: 10/23/18 02:19 Last Admin: 10/22/18 19:40 Dose: 150 mls/hr Sodium Chloride (Normal Saline) 1,000 mls @ 150 mls/hr IV ASDIRECTED [facility] Last Admin: 10/26/18 15:50 Dose: 150 mls/hr Levofloxacin/Dextrose 500 mg/ (Premix) 100 mls @ 100 mls/hr IV Q48H [facility] Last Admin: 10/23/18 17:53 Dose: Not Given Levofloxacin/Dextrose 500 mg/ (Premix) 100 mls @ 100 mls/hr IV Q48H [facility] Ceftriaxone Sodium/Dextrose 1 (gm/ Premix) 50 mls @ 100 mls/hr IV Q24H [facility] Last Admin: 10/29/18 12:18 Dose: Not Given Tolterodine Tartrate (Detrol) 1 mg PO BID [facility] Last Admin: 10/29/18 12:12 Dose: Not Given Tolterodine Tartrate (Detrol) 2 mg PO BID [facility] - Exam Quality Assessment: Denies: Supplemental Oxygen General: Reports: Alert, Oriented, Cooperative, No Acute Distress HEENT: Reports: Pupils Equal, Pupils Reactive, EOMI, Mucous Membr. Moist/[place] Neck: Reports: Supple, Trachea Midline Lungs: Reports: Clear to Auscultation, Normal Respiratory Effort Cardiovascular: Reports: Regular Rate, Regular Rhythm GI/Abdominal Exam: Normal Bowel Sounds, Soft, No Distention, Other (Eating well) . No: Guarding, Rigid Back Exam: Reports: Normal Inspection, Full Range of Motion Extremities: Normal Inspection, No Pedal Edema Skin: Reports: Warm, Dry, Other ( open wound with eschar formation right forearm , left arm wounds healing epithelialized) Wound/Incisions: Reports: Dressing Dry and Intact, No Drainage Neurological: Reports: No New Focal Deficit, Normal Gait Psy/Mental Status: Reports: Alert, Depressed. Denies: Normal Affect (Flat affect)
== END 2018-10-30 14:15 | disposition home health service (06) | DRG 558 ==
LOC: MW.ED 17:16 → MW.MS 20:34 → OBSVTOIN 10-23 09:16 → MW.MS 10-25 09:19
PROVIDERS: ADMIT Internal Medicine; ATTEND Internal Medicine
DX: R52 Pain, unspecified (principal); M25.532 Pain in left wrist; W18.30XA Fall on same level, unspecified, initial encounter; E11.9 Type 2 diabetes mellitus without complications; M62.82 Rhabdomyolysis; N30.01 Acute cystitis with hematuria; R65.10 Systemic inflammatory response syndrome (SIRS) of non-infectious origin without acute organ dysfunction; I96 Gangrene, not elsewhere classified; Z68.41 Body mass index [BMI] 40.0-44.9, adult; Z88.6 Allergy status to analgesic agent; T81.30XA Disruption of wound, unspecified, initial encounter; F41.9 Anxiety disorder, unspecified; Z88.8 Allergy status to other drugs, medicaments and biological substances; E11.69 Type 2 diabetes mellitus with other specified complication; E66.01 Morbid (severe) obesity due to excess calories; R32 Unspecified urinary incontinence; E86.0 Dehydration; N39.498 Other specified urinary incontinence; B95.8 Unspecified staphylococcus as the cause of diseases classified elsewhere; H54.7 Unspecified visual loss; E78.00 Pure hypercholesterolemia, unspecified; I10 Essential (primary) hypertension; F32.9 Major depressive disorder, single episode, unspecified; R23.8 Other skin changes; S51.802A Unspecified open wound of left forearm, initial encounter; S51.801A Unspecified open wound of right forearm, initial encounter; Z79.899 Other long term (current) drug therapy; Z88.5 Allergy status to narcotic agent; Z88.0 Allergy status to penicillin; Z88.1 Allergy status to other antibiotic agents; W19.XXXA Unspecified fall, initial encounter
CPT/HCPCS: 36415 ×2; 70450; 71045; 72170; 73090 ×2; 73130; 80053 ×2; 81001; 82550 ×2; 83605; 83615; 83690; 84484; 85025 ×2; 87040 ×2; 87077 ×2; 87086; 87088; 87186 ×3; 93005; 96361; 96365; 96366; 99285; A9270; J1956; J7040 ×4; 80048; 82962; 83735; 97116-GP; 97161-GP; 97530-GP; 97597-GP; 97598-GP; 99284; G0378; J0360; J0696; J1644; J1815-GY

== ENCOUNTER 2018-10-30 17:14 | Inpatient (IN) | payer MEDICARE, OTHER ==
[2018-10-30] MEDS ORDERED: Sodium Chloride 0.9% 10 ML Syringe FLUSH PRN (17:28)
[2018-10-30] MEDS ORDERED: Sodium Chloride 0.9% 2.5 ML Syringe FLUSH PRN (17:28)
--- NOTE | 2018-10-30 17:28 | EDM.PDOC ---
ED HPI GENERAL MEDICAL PROBLEM - General Chief Complaint: General Stated Complaint: UNABLE TO WALK Time Seen by Provider: 10/30/18 17:21 Source of Information: Reports: Patient History Limitations: Reports: No Limitations - History of Present Illness INITIAL COMMENTS - FREE TEXT/NARRATIVE: HISTORY AND PHYSICAL: History of present illness: Patient is a 63-year-old female who presents to the emergency room with complaints of generalized weakness. Patient was admitted to [facility] on 10/23/18 as she had slid onto the ground and suspected she laid there for 3 days. She was brought to the emergency at that time for evaluation and had rhabdomyolysis and urinary tract infection. She was discharged today at 2 PM. The has brought the patient back as he states he is unable to care for her. He states that she is "too weak to get up". Review of systems: As per history of present illness and below otherwise all systems reviewed and negative. Past medical history: As per history of present illness and as reviewed below otherwise noncontributory. Surgical history: As per history of present illness and as reviewed below otherwise noncontributory. Social history: See social history for further information Family history: As per history of present illness and as reviewed below otherwise noncontributory. Physical exam: General: Well developed and well-nourished 63-year-old female. Alert and appropriate per self. Nontoxic appearing and in no acute distress. HEENT: Atraumatic, normocephalic, pupils equal and reactive bilaterally, negative for conjunctival pallor or scleral icterus, mucous membranes moist, trachea midline. No drooling or trismus noted. No meningeal signs. No hot potato voice noted. Lungs: Clear to auscultation, breath sounds equal bilaterally, chest nontender. Heart: S1S2, regular rate and rhythm without overt murmur Abdomen: Soft, nondistended, obese, nontender. Negative for masses. Skin: Intact, warm, dry. No lesions or rashes noted. Extremities: Atraumatic, moves all extremities per self without difficulty or deficits, negative for cords or calf pain. Neurovascular unremarkable. Neuro: Awake, alert, oriented. Cranial nerves II through XII unremarkable. Cerebellum unremarkable. Motor and sensory unremarkable throughout. Exam nonfocal. Notes: Dr Balderrama, hospitalist, was consulted on this case is the patient was recently discharged to home. Prior to any diagnostics being performed he states that he will admit her to [facility] for further care and management. Diagnostics: EKG Therapeutics: Saline Lock Impression: Weakness Self-care deficit Plan: Observation admission to med/surg Definitive disposition and diagnosis as appropriate pending reevaluation and review of above. - Related Data Allergies Allergy/AdvReac Type Severity Reaction Status Date / Time codeine Allergy Headache Verified 10/30/18 17:26 Penicillins Allergy Hives Verified 10/30/18 17:26 propoxyphene [From Darvon] Allergy Cannot Verified 10/30/18 17:26 Remember tetracycline Allergy Cannot Verified 10/30/18 17:26 Remember Home Meds: Home Meds Blood Sugar Diagnostic [ZoomSaferuch Ultra Blue Test Strp] 1 strip .ROUTE DAILY 11/06 [History] Calcium Carbonate/Vitamin D3 [Calcium 600 + Vit D Tablet] 1 tab PO BID 09/27/17 [History] Pioglitazone [Actos] 15 mg PO DAILY 09/27/17 [History] Sertraline [Zoloft] 150 mg PO DAILY 09/27/17 [History] atorvaSTATin [Lipitor] 10 mg PO BEDTIME 09/27/17 [History] buPROPion [buPROPion XL] 150 mg PO DAILY 09/27/17 [History] risperiDONE 2 mg PO BEDTIME 09/27/17 [History] traZODone HCl [Trazodone HCl] 200 mg PO BEDTIME 09/27/17 [History] Lisinopril/Hydrochlorothiazide [Lisinopril-Hctz 20-12.5 mg Tab] 1 tab PO DAILY 10/23/18 [History] Multivitamin [Multivitamins] 1 tab PO DAILY 10/24/18 [History] metroNIDAZOLE [Metrogel-Vaginal] 70 gm VG DAILY 10/24/18 [History] Tolterodine [Detrol] 2 mg PO BID #60 tablet 10/30/18 [Rx] Past Medical History HEENT History: Reports: Impaired Vision, Other (See Below) Other HEENT History: Wear eyeglasses Cardiovascular History: Reports: High Cholesterol, Hypertension Respiratory History: Reports: None Gastrointestinal History: Reports: None Genitourinary History: Reports: Urinary Incontinence [employer]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 Musculoskeletal History: Reports: None Neurological History: Reports: None Psychiatric History: Reports: Anxiety, Depression, Mood Swings Endocrine/Metabolic History: Reports: Diabetes, Type II Hematologic History: Reports: None Immunologic History: Reports: None Oncologic (Cancer) History: Reports: None Dermatologic History: Reports: None - Infectious Disease History Infectious Disease History: Reports: Chicken Pox, Rubella - Past Surgical History Head Surgeries/Procedures: Reports: None Female Surgical History: Reports: Section Social & Family History - Family History Family Medical History: Noncontributory - Caffeine Use Caffeine Use: Reports: None - Living Situation & Occupation Living situation: Reports: , with Spouse Occupation: Retired ED ROS GENERAL - Review of Systems Review Of Systems: ROS reveals no pertinent complaints other than HPI. ED EXAM, GENERAL - Physical Exam Exam: See Below (See dictation) Course - Orders/Labs/Meds Orders: Active Orders 24 hr Category Date Time Status Admission Status [Patient Status] [ADT] Stat ADT 10/30/18 17:28 Ordered EKG Documentation Completion [RC] STAT Care 10/30/18 17:28 Ordered Sodium Chloride 0.9% [Saline Flush] Med 10/30/18 17:28 Ordered 10 ml FLUSH ASDIRECTED PRN Sodium Chloride 0.9% [Saline Flush] Med 10/30/18 17:28 Ordered 2.5 ml FLUSH ASDIRECTED PRN Saline Lock Insert [OM.PC] Stat Oth 10/30/18 17:28 Ordered Medication Orders Sodium Chloride (Saline Flush) 10 ml FLUSH ASDIRECTED PRN PRN Reason: Keep Vein Open Meds: Medications Generic Name Dose Route Start Last Admin Trade Name Freq PRN Reason Stop Dose Admin Sodium Chloride 10 ml 10/30/18 17:28 Saline Flush FLUSH ASDIRECTED PRN Keep Vein Open Departure - Departure Time of Disposition: 17:33 Disposition: Refer to Observation Clinical Impression: Total self-care deficit, Weakness - Discharge Information Referrals: PCP,Unknown [Primary Care Provider] - Forms: ED Department Discharge - My Orders Last 24 Hours: My Active Orders 10/30/18 17:28 Admission Status [Patient Status] [ADT] Stat EKG Documentation Completion [RC] STAT Sodium Chloride 0.9% [Saline Flush] 10 ml FLUSH ASDIRECTED PRN Sodium Chloride 0.9% [Saline Flush] 2.5 ml FLUSH ASDIRECTED PRN Saline Lock Insert [OM.PC] Stat - Assessment/Plan Last 24 Hours: My Active Orders 10/30/18 17:28 Admission Status [Patient Status] [ADT] Stat EKG Documentation Completion [RC] STAT Sodium Chloride 0.9% [Saline Flush] 10 ml FLUSH ASDIRECTED PRN Sodium Chloride 0.9% [Saline Flush] 2.5 ml FLUSH ASDIRECTED PRN Saline Lock Insert [OM.PC] Stat
[2018-10-30] MEDS ORDERED: Sodium Chloride 0.9% 1,000 ML IV ONE (17:34)
[2018-10-30] MEDS ORDERED: Docusate Sodium 100 MG Cap PO PRN (18:47)
[2018-10-30] MEDS ORDERED: Acetaminophen 325 MG Tab PO PRN (18:48)
--- NOTE | 2018-10-30 19:01 | PCM.HP.2 ---
<May Rodriguez - Last Filed: 10/31/18 07:56> H&P History of Present Illness - General Date of Service: 10/30/18 Admit Problem/Dx: Admission Diagnosis/Problem Admission Diagnosis/Problem Weakness - History of Present Illness Initial Comments - Free Text/Narative: Patient is a 63-year-old female accompanied by her presenting today after 2 hours from being discharged from [facility] with concerns of weakness and ambulatory dysfunction. Patient was recently admitted for 1 week secondary to rhabdomyolysis after a fall with unknown etiology. Throughout her stay patient has been working physical therapy, and has been improving as far as her labs are concerned. However on discharge patient was having a hard time ambulating from her car to the threshold of her house; was complaining of weakness in her legs and was not able to get up the steps into her own house. After tried to help and get her inside, he tried feeding her and having her drink something; patient realized that her weakness was too progressive, and with the pain in his own shoulders bilaterally, is not able to lift her and take care of her at home. Patient currently denies any pain or discomfort. , however, presents extensive medical history dating back 10-15 years. States she was once hospitalized with what seemed like a catatonic response; this was the pivotal point for which Risperdal and other psychiatric medications was initiated. also mentions: on one occasion patient accidentally took increased dosages of Risperdal on 2 or 3 occasions. however cannot quantify how long symptoms have been going on as he states he does not have a point of reference. Does mention to me that she has been having a shuffling gait and a more flattened affect; and that "talking to her is like trying to talk to Congress sometimes". patient otherwise at bedside does not endorse any discomfort at this time. Has no other requests either. conversations regarding need for rehabilitation was started; patient agreed that it would be better for her to be stronger before going home. - Related Data Allergies/Adverse Reactions: Allergies Allergy/AdvReac Type Severity Reaction Status Date / Time codeine Allergy Headache Verified 10/31/18 00:23 Penicillins Allergy Hives Verified 10/31/18 00:23 propoxyphene [From Darvon] Allergy Cannot Verified 10/31/18 00:23 Remember tetracycline Allergy Cannot Verified 10/31/18 00:23 Remember Home Medications: Home Meds Blood Sugar Diagnostic [[email or web address] Ultra Blue Test Strp] 1 strip .ROUTE DAILY 11/06 [History] Calcium Carbonate/Vitamin D3 [Calcium 600 + Vit D Tablet] 1 tab PO BID 09/27/17 [History] Pioglitazone [Actos] 15 mg PO DAILY 09/27/17 [History] Sertraline [Zoloft] 150 mg PO DAILY 09/27/17 [History] atorvaSTATin [Lipitor] 10 mg PO BEDTIME 09/27/17 [History] buPROPion [buPROPion XL] 150 mg PO DAILY 09/27/17 [History] risperiDONE 2 mg PO BEDTIME 09/27/17 [History] traZODone HCl [Trazodone HCl] 200 mg PO BEDTIME 09/27/17 [History] Lisinopril/Hydrochlorothiazide [Lisinopril-Hctz 20-12.5 mg Tab] 1 tab PO DAILY 10/23/18 [History] Multivitamin [Multivitamins] 1 tab PO DAILY 10/24/18 [History] metroNIDAZOLE [Metrogel-Vaginal] 70 gm VG DAILY 10/24/18 [History] Tolterodine [Detrol] 2 mg PO BID #60 tablet 10/30/18 [Rx] Past Medical History HEENT History: Reports: Impaired Vision, Other (See Below) Other HEENT History: Wear eyeglasses Cardiovascular History: Reports: High Cholesterol, Hypertension Respiratory History: Reports: None Gastrointestinal History: Reports: None Genitourinary History: Reports: Urinary Incontinence [employer] History: Reports: Other OB/BYN History: x2 Musculoskeletal History: Reports: None Neurological History: Reports: None Psychiatric History: Reports: Anxiety, Depression, Mood Swings Endocrine/Metabolic History: Reports: Diabetes, Type II Hematologic History: Reports: None Immunologic History: Reports: None Oncologic (Cancer) History: Reports: None Dermatologic History: Reports: None - Infectious Disease History Infectious Disease History: Reports: Chicken Pox, Rubella - Past Surgical History Head Surgeries/Procedures: Reports: None Female Surgical History: Reports: Section Social & Family History - Family History Family Medical History: Noncontributory - Tobacco Use Smoking Status *Q: Never Smoker Second Hand Smoke Exposure: No - Caffeine Use Caffeine Use: Reports: None - Recreational Drug Use Recreational Drug Use: No - Living Situation & Occupation Living situation: Reports: , with Spouse Occupation: Retired H&P Review of Systems - Review of Systems: Review Of Systems: See Below General: Reports: No Symptoms HEENT: Reports: No Symptoms Pulmonary: Reports: No Symptoms Gastrointestinal: Reports: No Symptoms Musculoskeletal: Reports: Back Pain Psychiatric: Reports: Depression, Mood Lability Neurological: Reports: Headache, Trouble Speaking, Gait Disturbance. Denies: Confusion, Dizziness, Tingling Exam - Exam Exam: See Below - Vital Signs Vital Signs: Last Vital Signs Temp 96.4 F 10/30/18 17:28 Pulse 94 10/30/18 18:15 Resp 21 H 10/30/18 18:15 BP 114/45 L 10/30/18 18:15 Pulse Ox 97 10/30/18 18:15 Weight: 90 kg - Exam General: Alert, Oriented, Cooperative, Mild Distress HEENT: EOMI, Mucosa Moist & [place] Neck: Supple, Trachea Midline Lungs: Clear to Auscultation, Normal Respiratory Effort Cardiovascular: Regular Rate, Regular Rhythm GI/Abdominal Exam: Soft, Non-Tender, Other (obese) Extremities: Pedal Edema, Other (b/l upper extremity lesions , however, still covered cince this AM discharge. Lower extremity swelling w/ no tenderness. pulses intact) Skin: Wound (dry skin over face; possibly from recent fall , ecchymosis ove dorsum of right hand. ) Neuro Extensive - Motor, Sensory, Reflexes: No: Normal Gait, Tongue Deviation (L ), Tongue Deviation (R), Abnormal Finger to Nose, Abn 2 Pt Discrimination Psychiatric: Alert, Other (flattened affect; but becomes lively when asked direct and specific questions; at times appears to look "lost" during questioning. ) - Patient Data Result Diagrams: 10/31/18 06:13 10/31/18 06:13 - Problem List (1) Total self-care deficit SNOMED Code(s): 73125855 ICD Code: R41.89 - OTH SYMPTOMS AND SIGNS W COGNITIVE FUNCTIONS AND AWARENESS Status: Acute Current Visit: Yes (2) Weakness SNOMED Code(s): 77461819 ICD Code: R53.1 - WEAKNESS Status: Acute Current Visit: Yes (3) Morbid obesity with BMI of 40.0-44.9, adult SNOMED Code(s): 498273901, 18084011986909 ICD Code: E66.01 - MORBID (SEVERE) OBESITY DUE TO EXCESS CALORIES; Z68.41 - BODY MASS INDEX (BMI) 40.0-44.9, ADULT Status: Chronic Priority: Medium Current Visit: No (4) Diabetes mellitus type 2 in obese SNOMED Code(s): 54077534 ICD Code: E11.69 - TYPE 2 DIABETES MELLITUS WITH OTHER SPECIFIED COMPLICATION ; E66.9 - OBESITY, UNSPECIFIED Status: Chronic Priority: Medium Current Visit: No Problem List Initiated/Reviewed/Updated: Yes Orders Last 24hrs: Active Orders 24 hr Category Date Time Status Admission Status [Patient Status] [ADT] Stat ADT 10/30/18 17:28 Active Accu Check [Blood Glucose Check, Bedside] [RC] BIDMEALS Care 10/30/18 18:55 Ordered EKG Documentation Completion [RC] STAT Care 10/30/18 17:28 Active Intake and Output [RC] ASDIRECTED Care 10/30/18 18:46 Ordered Up With Assistance [RC] ASDIRECTED Care 10/30/18 18:47 Ordered Vital Signs [RC] PER UNIT ROUTINE Care 10/30/18 18:47 Ordered Consult to Occupational Therapy [OT Evaluation and Cons 10/30/18 18:54 Ordered Treatment] [CONS] Routine Consult to Physical Therapy [PT Evaluation and Cons 10/30/18 18:53 Ordered Treatment] [CONS] Routine [employer] Diet [DIET] Diet 10/31/18 Breakfast Ordered BMP [BASIC METABOLIC PANEL,BMP] [CHEM] AM Lab 10/31/18 05:11 Ordered CBC WITH AUTO DIFF [HEME] AM Lab 10/31/18 05:11 Ordered CULTURE BLOOD [BC] AM Lab 10/31/18 05:11 Ordered URINALYSIS W/MICROSCOPIC [UA W/MICROSCOPIC] [URIN] Lab 10/30/18 18:52 Ordered Routine Acetaminophen [Tylenol] Med 10/30/18 18:48 Ordered 650 mg PO Q4H PRN Docusate Sodium [Colace] Med 10/30/18 18:47 Ordered 100 mg PO DAILY PRN Lisinopril [Prinivil] Med 10/31/18 09:00 Active 10 mg PO DAILY Lisinopril/Hydrochlorothiazide [Lisinopril-Hctz 20-12.5 Med 10/31/18 09:00 Ordered mg Tab] 1 tab PO DAILY Pioglitazone [Actos] Med 10/31/18 09:00 Ordered 15 mg PO DAILY Sertraline [Zoloft] Med 10/31/18 09:00 Ordered 150 mg PO DAILY Sodium Chloride 0.9% [Normal Saline] 1,000 ml Med 10/30/18 17:34 Active IV STAT Sodium Chloride 0.9% [Saline Flush] Med 10/30/18 17:28 Active 10 ml FLUSH ASDIRECTED PRN Sodium Chloride 0.9% [Saline Flush] Med 10/30/18 17:28 Active 2.5 ml FLUSH ASDIRECTED PRN Tolterodine [Detrol] Med 10/30/18 21:00 Ordered 2 mg PO BID buPROPion [Wellbutrin XL] Med 10/31/18 09:00 Ordered 150 mg PO DAILY risperiDONE [risperiDONE] Med 10/30/18 21:00 Ordered 2 mg PO BEDTIME traZODone HCl [Trazodone HCl] Med 10/30/18 21:00 Ordered 200 mg PO BEDTIME Saline Lock Insert [OM.PC] Stat Oth 10/30/18 17:28 Ordered Code Status [Resuscitation Status] Routine Resus Stat 10/30/18 18:46 Ordered Medication Orders Acetaminophen (Tylenol) 650 mg PO Q4H PRN PRN Reason: Fever Bupropion HCl (Wellbutrin Xl) 150 mg PO DAILY ERIK Docusate Sodium (Colace) 100 mg PO DAILY PRN PRN Reason: Constipation Lisinopril/HCTZ (Lisinopril-Hctz 10-12.5 Mg) 1 tab PO DAILY ERIK Sodium Chloride (Normal Saline) 1,000 mls @ 150 mls/hr IV STAT ONE Stop: 10/31/18 00:13 Last Admin: 10/30/18 17:51 Dose: 150 mls/hr Lisinopril (Prinivil) 10 mg PO DAILY ERIK Pioglitazone HCl (Actos) 15 mg PO DAILY ERIK Risperidone (Risperidal) 2 mg PO BEDTIME ERIK Sertraline HCl (Zoloft) 150 mg PO DAILY ERIK Sodium Chloride (Saline Flush) 10 ml FLUSH ASDIRECTED PRN PRN Reason: Keep Vein Open Sodium Chloride (Saline Flush) 2.5 ml FLUSH ASDIRECTED PRN PRN Reason: Keep Vein Open Tolterodine Tartrate (Detrol) 2 mg PO BID ERIK Trazodone HCl (Trazodone Hcl) 200 mg PO BEDTIME ERIK Assessment/Plan Comment:: Assessment: 1. Ambulatory dysfunction secondary to weakness with unknown etiology. 2. Recent history of fall with unknown etiology resulting in rhabdomyolysis 3. recent history of urinary tract infection. 4. Past medical history of type 2 diabetes, osteoarthritis, depression/anxiety, flattened affect Plan: Admit to inpatient. Full code. Diet: diabetic diet/soft mechanical. Intake output per routine. Vitals per routine. Activity: up with assistance. GI prophylaxis: pantoprazole 40 daily. DVT prophylaxis: Lovenox 30. 1. Ambulatory dysfunction with weakness: patient will benefit from rehabilitation therapy; this may become a disposition issue; however at this time we'll order CBC, BMP, and repeat urinalysis in a.m.. Repeat blood cultures. Physical therapy/occupational therapy evaluation. Daily strengthening. 2. Since there may be a psychiatric component overlying her medical history: we' ll consult Dr. Luna of psychiatry in a.m. We are looking forward to his recommendations. 3. past medical history: continue home medications at this time. 4. We'll contact social work/pillowcase turner to discuss disposition options. <Joaquim Balderrama - Last Filed: 10/31/18 09:44> H&P History of Present Illness - General Admit Problem/Dx: Admission Diagnosis/Problem Admission Diagnosis/Problem Weakness I have seen and examined the patient independently of nuclear medical technologist, Dr. Jennifer MD. I have reviewed and agree with the plan of care as outlined for this patient by him. I have discussed the case with him. Please see orders. The patient was at home for approximately 2 hours and subsequently had been unable to ambulate and was readmitted to the emergency department. The patient had been ambulating prior to discharge. Exam - Vital Signs Vital Signs: Last Vital Signs Temp 36.5 C 10/31/18 07:36 Pulse 95 10/31/18 07:36 Resp 18 10/31/18 07:36 BP 132/59 L 10/31/18 08:48 Pulse Ox 95 10/31/18 07:36 - Patient Data Lab Results Last 24 hrs: Laboratory Results - last 24 hr 10/30/18 10/31/18 10/31/18 Range/Units 20:45 06:13 06:13 WBC 11.13 H (4.0-11.0) K/uL RBC 4.09 L (4.30-5.90) M/uL Hgb 11.3 L (12.0-16.0) g/dL Hct 35.8 L (36.0-46.0) % MCV 87.5 (80.0-98.0) fL MCH 27.6 (27.0-32.0) pg MCHC 31.6 (31.0-37.0) g/dL RDW Std Deviation 51.0 (28.0-62.0) fl RDW Coeff of Luz 16 H (11.0-15.0) % Plt Count 196 (150-400) K/uL MPV 10.30 (7.40-12.00) fL Add Manual Diff YES Neutrophils % (Manual) 67 (48.0-80.0) % Band Neutrophils % 4 % Lymphocytes % (Manual) 23 (16.0-40.0) % Monocytes % (Manual) 5 (0.0-15.0) % Basophils % (Manual) 1 (0.0-1.5) % Nucleated RBC % 0.0 /100WBC Absolute Seg Neuts 7.5 H (1.4-5.7) Band Neutrophils # 0.4 Lymphocytes # (Manual) 2.6 H (0.6-2.4) Monocytes # (Manual) 0.6 (0.0-0.8) Eosinophils # (Manual) 0.1 (0.0-0.7) Basophils # (Manual) 0.1 (0.0-0.1) Nucleated RBCs # 0 K/uL Sodium 145 (136-145) mmol/L Potassium 3.8 (3.5-5.1) mmol/L Chloride 106 (98-107) mmol/L Carbon Dioxide 31.4 (21.0-32.0) mmol/L BUN 17 (7.0-18.0) mg/dL Creatinine 0.9 (0.6-1.0) mg/dL Est Cr Clr Drug Dosing 44.76 mL/min Estimated GFR (MDRD) > 60.0 ml/min Glucose 110 H (74-106) mg/dL POC Glucose (60-110) mg/dL Calcium 8.3 L (8.5-10.1) mg/dL Urine Color YELLOW Urine Appearance CLEAR Urine pH 7.5 (5.0-8.0) Ur Specific [place] 1.010 (1.001-1.035) Urine Protein NEGATIVE (NEGATIVE) mg/dL Urine Glucose (UA) NEGATIVE (NEGATIVE) mg/dL Urine Ketones NEGATIVE (NEGATIVE) mg/dL Urine Occult Blood NEGATIVE (NEGATIVE) Urine Nitrite NEGATIVE (NEGATIVE) Urine Bilirubin NEGATIVE (NEGATIVE) Urine Urobilinogen 0.2 (<2.0) EU/dL Ur Leukocyte Esterase NEGATIVE (NEGATIVE) Urine RBC 0-1 (0-2/HPF) Urine WBC 0-1 (0-5/HPF) Ur Epithelial Cells RARE (NONE-FEW) Amorphous Sediment FEW (NEGATIVE) Urine Bacteria FEW (NEGATIVE) 10/31/18 Range/Units 06:28 WBC (4.0-11.0) K/uL RBC (4.30-5.90) M/uL Hgb (12.0-16.0) g/dL Hct (36.0-46.0) % MCV (80.0-98.0) fL MCH (27.0-32.0) pg MCHC (31.0-37.0) g/dL RDW Std Deviation (28.0-62.0) fl RDW Coeff of Luz (11.0-15.0) % Plt Count (150-400) K/uL MPV (7.40-12.00) fL Add Manual Diff Neutrophils % (Manual) (48.0-80.0) % Band Neutrophils % % Lymphocytes % (Manual) (16.0-40.0) % Monocytes % (Manual) (0.0-15.0) % Basophils % (Manual) (0.0-1.5) % Nucleated RBC % /100WBC Absolute Seg Neuts (1.4-5.7) Band Neutrophils # Lymphocytes # (Manual) (0.6-2.4) Monocytes # (Manual) (0.0-0.8) Eosinophils # (Manual) (0.0-0.7) Basophils # (Manual) (0.0-0.1) Nucleated RBCs # K/uL Sodium (136-145) mmol/L Potassium (3.5-5.1) mmol/L Chloride (98-107) mmol/L Carbon Dioxide (21.0-32.0) mmol/L BUN (7.0-18.0) mg/dL Creatinine (0.6-1.0) mg/dL Est Cr Clr Drug Dosing mL/min Estimated GFR (MDRD) ml/min Glucose (74-106) mg/dL POC Glucose 114 H (60-110) mg/dL Calcium (8.5-10.1) mg/dL Urine Color Urine Appearance Urine pH (5.0-8.0) Ur Specific [place] (1.001-1.035) Urine Protein (NEGATIVE) mg/dL Urine Glucose (UA) (NEGATIVE) mg/dL Urine Ketones (NEGATIVE) mg/dL Urine Occult Blood (NEGATIVE) Urine Nitrite (NEGATIVE) Urine Bilirubin (NEGATIVE) Urine Urobilinogen (<2.0) EU/dL Ur Leukocyte Esterase (NEGATIVE) Urine RBC (0-2/HPF) Urine WBC (0-5/HPF) Ur Epithelial Cells (NONE-FEW) Amorphous Sediment (NEGATIVE) Urine Bacteria (NEGATIVE) Result Diagrams: 10/31/18 06:13 10/31/18 06:13 Orders Last 24hrs: Active Orders 24 hr Category Date Time Status Admission Status [Patient Status] [ADT] Routine ADT 10/31/18 07:04 Active Accu Check [Blood Glucose Check, Bedside] [RC] BIDMEALS Care 10/30/18 18:55 Inactive Accu Check [Blood Glucose Check, Bedside] [RC] TIDMEALS Care 10/30/18 19:20 Active EKG Documentation Completion [RC] STAT Care 10/30/18 17:28 Active Intake and Output [RC] ASDIRECTED Care 10/30/18 18:46 Active Nursing Bedside Swallow Screen [RC] ASDIRECTED Care 10/30/18 19:17 Active Up With Assistance [RC] ASDIRECTED Care 10/30/18 18:47 Active Vital Signs [RC] PER UNIT ROUTINE Care 10/30/18 18:47 Active Consult to Occupational Therapy [OT Evaluation and Cons 10/30/18 18:54 Active Treatment] [CONS] Routine Consult to Physical Therapy [PT Evaluation and Cons 10/30/18 18:53 Active Treatment] [CONS] Routine Consult to Spiritual Care [CONS] Routine Cons 10/31/18 09:35 Active [employer] Diet [DIET] Diet 10/31/18 Breakfast Active CULTURE BLOOD [BC] AM Lab 10/31/18 06:13 Received Acetaminophen [Tylenol] Med 10/30/18 18:48 Active 650 mg PO Q4H PRN Docusate Sodium [Colace] Med 10/30/18 18:47 Active 100 mg PO DAILY PRN Enoxaparin [Lovenox] Med 10/31/18 07:30 Active 30 mg SUBCUT Q24H Insulin Aspart [NovoLOG] Med 10/31/18 07:30 Active See Protocol SUBCUT TIDAC Lisinopril [Prinivil] Med 10/31/18 09:00 Active 10 mg PO DAILY Lisinopril/Hydrochlorothiazide [Lisinopril-HCTZ 10-12.5 Med 10/30/18 19:00 Active MG] 1 tab PO DAILY Pioglitazone [Actos] Med 10/31/18 09:00 Active 15 mg PO DAILY Sertraline [Zoloft] Med 10/31/18 09:00 Active 150 mg PO DAILY Sodium Chloride 0.9% [Saline Flush] Med 10/30/18 17:28 Active 10 ml FLUSH ASDIRECTED PRN Sodium Chloride 0.9% [Saline Flush] Med 10/30/18 17:28 Active 2.5 ml FLUSH ASDIRECTED PRN Tolterodine [Detrol] Med 10/30/18 21:00 Active 2 mg PO BID buPROPion [Wellbutrin XL] Med 10/31/18 09:00 Active 150 mg PO DAILY risperiDONE [RisperiDAL] Med 10/30/18 21:00 Active 2 mg PO BEDTIME traZODone Med 10/31/18 21:00 Active 200 mg PO BEDTIME Saline Lock Insert [OM.PC] Stat Oth 10/30/18 17:28 Ordered Code Status [Resuscitation Status] Routine Resus Stat 10/30/18 18:46 Ordered Medication Orders Acetaminophen (Tylenol) 650 mg PO Q4H PRN PRN Reason: Fever Bupropion HCl (Wellbutrin Xl) 150 mg PO DAILY [facility] Last Admin: 10/31/18 08:48 Dose: 150 mg Docusate Sodium (Colace) 100 mg PO DAILY PRN PRN Reason: Constipation Enoxaparin Sodium (Lovenox) 30 mg SUBCUT Q24H ERIK Last Admin: 10/31/18 08:23 Dose: 30 mg Lisinopril/HCTZ (Lisinopril-Hctz 10-12.5 Mg) 1 tab PO DAILY ERIK Last Admin: 10/31/18 08:48 Dose: 1 tab Admin: 10/30/18 20:58 Dose: 1 tab Insulin Aspart (Novolog) 0 unit SUBCUT TIDAC [facility]; Protocol Last Admin: 10/31/18 06:41 Dose: Not Given Lisinopril (Prinivil) 10 mg PO DAILY [facility] Last Admin: 10/31/18 08:48 Dose: 10 mg Pioglitazone HCl (Actos) 15 mg PO DAILY [facility] Last Admin: 10/31/18 08:49 Dose: 15 mg Risperidone (Risperidal) 2 mg PO BEDTIME [facility] Last Admin: 10/30/18 20:58 Dose: 2 mg Sertraline HCl (Zoloft) 150 mg PO DAILY [facility] Last Admin: 10/31/18 08:50 Dose: 150 mg Sodium Chloride (Saline Flush) 10 ml FLUSH ASDIRECTED PRN PRN Reason: Keep Vein Open Sodium Chloride (Saline Flush) 2.5 ml FLUSH ASDIRECTED PRN PRN Reason: Keep Vein Open Tolterodine Tartrate (Detrol) 2 mg PO BID [facility] Last Admin: 10/31/18 08:48 Dose: 2 mg Admin: 10/30/18 20:59 Dose: 2 mg Trazodone HCl (Trazodone) 200 mg PO BEDTIME [facility]
[2018-10-30] MEDS: Lisinopril/Hydrochlorothiazide 10-12.5 MG Tab PO SCH (20:58)
[2018-10-30] MEDS: risperiDONE 1 MG Tab PO SCH (20:58)
[2018-10-30] MEDS ORDERED: traZODone 50 MG Tab PO SCH (21:45)
[2018-10-31 06:40] LABS: BLOOD UREA NITROGEN,BUN 17 mg/dL (7.0-18.0); CARBON DIOXIDE,CO2 31.4 mmol/L (21.0-32.0); CHLORIDE,CL 106 mmol/L (98-107); GLUCOSE RANDOM 110 mg/dL (74-106); POTASSIUM,K 3.8 mmol/L (3.5-5.1); SODIUM,NA 145 mmol/L (136-145)
[2018-10-31] MEDS: Insulin Aspart 100 Units/ML 3 ML Pen SUBCUT SCH ×3 (06:41→17:24)
[2018-10-31] MEDS ORDERED: Enoxaparin 40 MG/0.4 ML Syringe SUBCUT SCH (08:00)
[2018-10-31] MEDS: Enoxaparin 30 MG/0.3 ML Syringe SUBCUT SCH (08:23)
[2018-10-31] MEDS: Lisinopril 10 MG Tab PO SCH (08:48)
[2018-10-31] MEDS: Lisinopril/Hydrochlorothiazide 10-12.5 MG Tab PO SCH (08:48)
[2018-10-31] MEDS: Pioglitazone 15 MG Tab PO SCH (08:49)
[2018-10-31] MEDS: Sertraline 100 MG Tab PO SCH (08:50)
[2018-10-31] MEDS ORDERED: buPROPion 150 MG Tab.ER PO SCH (09:00)
--- NOTE | 2018-10-31 16:33 | PCM.PN ---
<May Rodriguez - Last Filed: 10/31/18 16:29> - General Info Date of Service: 10/31/18 Subjective Update: patient seen at bedside; denies any issues or concerns at this time except for her legs. - Review of Systems General: Denies: Fever Pulmonary: Denies: Shortness of Breath Cardiovascular: Denies: Chest Pain, Palpitations Gastrointestinal: Denies: Abdominal Pain Musculoskeletal: Reports: Leg Pain Psychiatric: Reports: Anxiety - Patient Data Vitals - Most Recent: Last Vital Signs Temp 97.7 F 10/31/18 15:56 Pulse 81 10/31/18 15:56 Resp 18 10/31/18 15:56 BP 125/60 10/31/18 15:56 Pulse Ox 96 10/31/18 15:56 Weight - Most Recent: 90 kg I&O - Last 24 Hours: Intake & Output 10/31/18 10/31/18 10/31/18 06:59 14:59 22:59 Intake Total 400 Output Total 100 Balance 300 Lab Results Last 24 Hours: Laboratory Results - last 24 hr 10/30/18 10/31/18 10/31/18 Range/Units 20:45 06:13 06:13 WBC 11.13 H (4.0-11.0) K/uL RBC 4.09 L (4.30-5.90) M/uL Hgb 11.3 L (12.0-16.0) g/dL Hct 35.8 L (36.0-46.0) % MCV 87.5 (80.0-98.0) fL MCH 27.6 (27.0-32.0) pg MCHC 31.6 (31.0-37.0) g/dL RDW Std Deviation 51.0 (28.0-62.0) fl RDW Coeff of Luz 16 H (11.0-15.0) % Plt Count 196 (150-400) K/uL MPV 10.30 (7.40-12.00) fL Add Manual Diff YES Neutrophils % (Manual) 67 (48.0-80.0) % Band Neutrophils % 4 % Lymphocytes % (Manual) 23 (16.0-40.0) % Monocytes % (Manual) 5 (0.0-15.0) % Basophils % (Manual) 1 (0.0-1.5) % Nucleated RBC % 0.0 /100WBC Absolute Seg Neuts 7.5 H (1.4-5.7) Band Neutrophils # 0.4 Lymphocytes # (Manual) 2.6 H (0.6-2.4) Monocytes # (Manual) 0.6 (0.0-0.8) Eosinophils # (Manual) 0.1 (0.0-0.7) Basophils # (Manual) 0.1 (0.0-0.1) Nucleated RBCs # 0 K/uL Sodium 145 (136-145) mmol/L Potassium 3.8 (3.5-5.1) mmol/L Chloride 106 (98-107) mmol/L Carbon Dioxide 31.4 (21.0-32.0) mmol/L BUN 17 (7.0-18.0) mg/dL Creatinine 0.9 (0.6-1.0) mg/dL Est Cr Clr Drug Dosing 44.76 mL/min Estimated GFR (MDRD) > 60.0 ml/min Glucose 110 H (74-106) mg/dL POC Glucose (60-110) mg/dL Calcium 8.3 L (8.5-10.1) mg/dL Urine Color YELLOW Urine Appearance CLEAR Urine pH 7.5 (5.0-8.0) Ur Specific [place] 1.010 (1.001-1.035) Urine Protein NEGATIVE (NEGATIVE) mg/dL Urine Glucose (UA) NEGATIVE (NEGATIVE) mg/dL Urine Ketones NEGATIVE (NEGATIVE) mg/dL Urine Occult Blood NEGATIVE (NEGATIVE) Urine Nitrite NEGATIVE (NEGATIVE) Urine Bilirubin NEGATIVE (NEGATIVE) Urine Urobilinogen 0.2 (<2.0) EU/dL Ur Leukocyte Esterase NEGATIVE (NEGATIVE) Urine RBC 0-1 (0-2/HPF) Urine WBC 0-1 (0-5/HPF) Ur Epithelial Cells RARE (NONE-FEW) Amorphous Sediment FEW (NEGATIVE) Urine Bacteria FEW (NEGATIVE) 10/31/18 10/31/18 Range/Units 06:28 11:30 WBC (4.0-11.0) K/uL RBC (4.30-5.90) M/uL Hgb (12.0-16.0) g/dL Hct (36.0-46.0) % MCV (80.0-98.0) fL MCH (27.0-32.0) pg MCHC (31.0-37.0) g/dL RDW Std Deviation (28.0-62.0) fl RDW Coeff of Luz (11.0-15.0) % Plt Count (150-400) K/uL MPV (7.40-12.00) fL Add Manual Diff Neutrophils % (Manual) (48.0-80.0) % Band Neutrophils % % Lymphocytes % (Manual) (16.0-40.0) % Monocytes % (Manual) (0.0-15.0) % Basophils % (Manual) (0.0-1.5) % Nucleated RBC % /100WBC Absolute Seg Neuts (1.4-5.7) Band Neutrophils # Lymphocytes # (Manual) (0.6-2.4) Monocytes # (Manual) (0.0-0.8) Eosinophils # (Manual) (0.0-0.7) Basophils # (Manual) (0.0-0.1) Nucleated RBCs # K/uL Sodium (136-145) mmol/L Potassium (3.5-5.1) mmol/L Chloride (98-107) mmol/L Carbon Dioxide (21.0-32.0) mmol/L BUN (7.0-18.0) mg/dL Creatinine (0.6-1.0) mg/dL Est Cr Clr Drug Dosing mL/min Estimated GFR (MDRD) ml/min Glucose (74-106) mg/dL POC Glucose 114 H 141 H (60-110) mg/dL Calcium (8.5-10.1) mg/dL Urine Color Urine Appearance Urine pH (5.0-8.0) Ur Specific [place] (1.001-1.035) Urine Protein (NEGATIVE) mg/dL Urine Glucose (UA) (NEGATIVE) mg/dL Urine Ketones (NEGATIVE) mg/dL Urine Occult Blood (NEGATIVE) Urine Nitrite (NEGATIVE) Urine Bilirubin (NEGATIVE) Urine Urobilinogen (<2.0) EU/dL Ur Leukocyte Esterase (NEGATIVE) Urine RBC (0-2/HPF) Urine WBC (0-5/HPF) Ur Epithelial Cells (NONE-FEW) Amorphous Sediment (NEGATIVE) Urine Bacteria (NEGATIVE) Med Orders - Current: Current Medications Acetaminophen (Tylenol) 650 mg PO Q4H PRN PRN Reason: Fever Bupropion HCl (Wellbutrin Xl) 150 mg PO DAILY [facility] Last Admin: 10/31/18 08:48 Dose: 150 mg Docusate Sodium (Colace) 100 mg PO DAILY PRN PRN Reason: Constipation Enoxaparin Sodium (Lovenox) 30 mg SUBCUT Q24H [facility] Last Admin: 10/31/18 08:23 Dose: 30 mg Lisinopril/HCTZ (Lisinopril-Hctz 10-12.5 Mg) 1 tab PO DAILY [facility] Last Admin: 10/31/18 08:48 Dose: 1 tab Insulin Aspart (Novolog) 0 unit SUBCUT TIDAC [facility]; Protocol Last Admin: 10/31/18 12:03 Dose: Not Given Lisinopril (Prinivil) 10 mg PO DAILY [facility] Last Admin: 10/31/18 08:48 Dose: 10 mg Pioglitazone HCl (Actos) 15 mg PO DAILY [facility] Last Admin: 10/31/18 08:49 Dose: 15 mg Risperidone (Risperidal) 2 mg PO BEDTIME [facility] Last Admin: 10/30/18 20:58 Dose: 2 mg Sertraline HCl (Zoloft) 150 mg PO DAILY [facility] Last Admin: 10/31/18 08:50 Dose: 150 mg Sodium Chloride (Saline Flush) 10 ml FLUSH ASDIRECTED PRN PRN Reason: Keep Vein Open Sodium Chloride (Saline Flush) 2.5 ml FLUSH ASDIRECTED PRN PRN Reason: Keep Vein Open Tolterodine Tartrate (Detrol) 2 mg PO BID [facility] Last Admin: 10/31/18 08:48 Dose: 2 mg Trazodone HCl (Trazodone) 200 mg PO BEDTIME [facility] Discontinued Medications Enoxaparin Sodium (Lovenox) 40 mg SUBCUT Q24H [facility] Sodium Chloride (Normal Saline) 1,000 mls @ 150 mls/hr IV STAT ONE Stop: 10/31/18 00:13 Last Admin: 10/30/18 17:51 Dose: 150 mls/hr Trazodone HCl (Trazodone Hcl) 200 mg PO BEDTIME [facility] Last Admin: 10/30/18 21:49 Dose: Not Given Trazodone HCl (Trazodone) 200 mg PO BEDTIME [facility] Stop: 10/30/18 21:46 Last Admin: 10/30/18 21:46 Dose: 200 mg - Exam General: Alert, Oriented HEENT: EOMI Lungs: Clear to Auscultation, Normal Respiratory Effort Cardiovascular: Regular Rate, Regular Rhythm Extremities: Other (lower extremity swelling w/ obesity. +pitting edema ) Neurological: Other (mild dysmetria. ) Psy/Mental Status: Alert, Anxious, Other (flattened affect but cooperative w/ evaluation. ) - Problem List & Annotations (1) Total self-care deficit SNOMED Code(s): 45432386 Code(s): R41.89 - OTH SYMPTOMS AND SIGNS W COGNITIVE FUNCTIONS AND AWARENESS Status: Acute Current Visit: Yes (2) Weakness SNOMED Code(s): 23888632 Code(s): R53.1 - WEAKNESS Status: Acute Current Visit: Yes (3) Morbid obesity with BMI of 40.0-44.9, adult SNOMED Code(s): 444511019, 33779974325004 Code(s): E66.01 - MORBID (SEVERE) OBESITY DUE TO EXCESS CALORIES; Z68.41 - BODY MASS INDEX (BMI) 40.0-44.9, ADULT Status: Chronic Priority: Medium Current Visit: No (4) Diabetes mellitus type 2 in obese SNOMED Code(s): 43657015 Code(s): E11.69 - TYPE 2 DIABETES MELLITUS WITH OTHER SPECIFIED COMPLICATION ; E66.9 - OBESITY, UNSPECIFIED Status: Chronic Priority: Medium Current Visit: No - Problem List Review Problem List Initiated/Reviewed/Updated: Yes - My Orders Last 24 Hours: My Active Orders 10/30/18 18:46 Intake and Output [RC] ASDIRECTED Code Status [Resuscitation Status] Routine 10/30/18 18:47 Up With Assistance [RC] ASDIRECTED Vital Signs [RC] PER UNIT ROUTINE Docusate Sodium [Colace] 100 mg PO DAILY PRN 10/30/18 18:48 Acetaminophen [Tylenol] 650 mg PO Q4H PRN 10/30/18 18:53 Consult to Physical Therapy [PT Evaluation and Treatment] [CONS] Routine 10/30/18 18:54 Consult to Occupational Therapy [OT Evaluation and Treatment] [CONS] Routine 10/30/18 18:55 Accu Check [Blood Glucose Check, Bedside] [RC] BIDMEALS 10/30/18 19:00 Lisinopril/Hydrochlorothiazide [Lisinopril-HCTZ 10-12.5 MG] 1 tab PO DAILY 10/30/18 19:17 Nursing Bedside Swallow Screen [RC] ASDIRECTED 10/30/18 19:20 Accu Check [Blood Glucose Check, Bedside] [RC] TIDMEALS 10/30/18 21:00 Tolterodine [Detrol] 2 mg PO BID risperiDONE [RisperiDAL] 2 mg PO BEDTIME 10/31/18 06:13 CULTURE BLOOD [BC] AM 10/31/18 07:30 Enoxaparin [Lovenox] 30 mg SUBCUT Q24H Insulin Aspart [NovoLOG] See Protocol SUBCUT TIDAC 10/31/18 09:00 Lisinopril [Prinivil] 10 mg PO DAILY Pioglitazone [Actos] 15 mg PO DAILY Sertraline [Zoloft] 150 mg PO DAILY buPROPion [Wellbutrin XL] 150 mg PO DAILY 10/31/18 09:35 Consult to Spiritual Care [CONS] Routine 10/31/18 21:00 traZODone 200 mg PO BEDTIME 10/31/18 Breakfast [employer] [employer] Diet [DIET] 11/01/18 05:11 CBC WITH AUTO DIFF [HEME] AM - Plan Plan:: Assessment: 1. Ambulatory dysfunction secondary to weakness with unknown etiology. 2. Recent history of fall with unknown etiology resulting in rhabdomyolysis 3. recent history of urinary tract infection. 4. Past medical history of type 2 diabetes, osteoarthritis, depression/anxiety, flattened affect Plan: Admit to inpatient. Full code. Diet: diabetic diet/soft mechanical. Intake output per routine. Vitals per routine. Activity: up with assistance. GI prophylaxis: pantoprazole 40 daily. DVT prophylaxis: Lovenox 30. 1. Ambulatory dysfunction with weakness: patient will benefit from rehabilitation therapy; this may become a disposition issue; however at this time we'll order CBC, BMP, and repeat urinalysis in a.m.. Repeat blood cultures. Physical therapy/occupational therapy evaluation. Daily strengthening. 2. Since there may be a psychiatric component overlying her medical history: Dr Luna consult has been initiated; will speak w/ pt. on November 01 8AM. 3. past medical history: continue home medications at this time. 4. We'll contact social work/window caser to discuss disposition options. <Joaquim Balderrama - Last Filed: 09/12/19 17:57> - General Info Admission Dx/Problem (Free Text): I have seen and examined the patient independently of medical librarian, Dr. Jennifer MD. I have reviewed and agree with the plan of care as outlined for this patient by him. I have discussed the case with him. Please see orders. - Patient Data Vitals - Most Recent: Last Vital Signs Temp 36.5 C 10/31/18 15:56 Pulse 81 10/31/18 15:56 Resp 18 10/31/18 15:56 BP 125/60 10/31/18 15:56 Pulse Ox 96 10/31/18 15:56 I&O - Last 24 Hours: Intake & Output 10/31/18 10/31/18 10/31/18 06:59 14:59 22:59 Intake Total 400 340 Output Total 100 150 Balance 300 190 Lab Results Last 24 Hours: Laboratory Results - last 24 hr 10/30/18 10/31/18 10/31/18 Range/Units 20:45 06:13 06:13 WBC 11.13 H (4.0-11.0) K/uL RBC 4.09 L (4.30-5.90) M/uL Hgb 11.3 L (12.0-16.0) g/dL Hct 35.8 L (36.0-46.0) % MCV 87.5 (80.0-98.0) fL MCH 27.6 (27.0-32.0) pg MCHC 31.6 (31.0-37.0) g/dL RDW Std Deviation 51.0 (28.0-62.0) fl RDW Coeff of Luz 16 H (11.0-15.0) % Plt Count 196 (150-400) K/uL MPV 10.30 (7.40-12.00) fL Add Manual Diff YES Neutrophils % (Manual) 67 (48.0-80.0) % Band Neutrophils % 4 % Lymphocytes % (Manual) 23 (16.0-40.0) % Monocytes % (Manual) 5 (0.0-15.0) % Basophils % (Manual) 1 (0.0-1.5) % Nucleated RBC % 0.0 /100WBC Absolute Seg Neuts 7.5 H (1.4-5.7) Band Neutrophils # 0.4 Lymphocytes # (Manual) 2.6 H (0.6-2.4) Monocytes # (Manual) 0.6 (0.0-0.8) Eosinophils # (Manual) 0.1 (0.0-0.7) Basophils # (Manual) 0.1 (0.0-0.1) Nucleated RBCs # 0 K/uL Sodium 145 (136-145) mmol/L Potassium 3.8 (3.5-5.1) mmol/L Chloride 106 (98-107) mmol/L Carbon Dioxide 31.4 (21.0-32.0) mmol/L BUN 17 (7.0-18.0) mg/dL Creatinine 0.9 (0.6-1.0) mg/dL Est Cr Clr Drug Dosing 44.76 mL/min Estimated GFR (MDRD) > 60.0 ml/min Glucose 110 H (74-106) mg/dL POC Glucose (60-110) mg/dL Calcium 8.3 L (8.5-10.1) mg/dL Urine Color YELLOW Urine Appearance CLEAR Urine pH 7.5 (5.0-8.0) Ur Specific [place] 1.010 (1.001-1.035) Urine Protein NEGATIVE (NEGATIVE) mg/dL Urine Glucose (UA) NEGATIVE (NEGATIVE) mg/dL Urine Ketones NEGATIVE (NEGATIVE) mg/dL Urine Occult Blood NEGATIVE (NEGATIVE) Urine Nitrite NEGATIVE (NEGATIVE) Urine Bilirubin NEGATIVE (NEGATIVE) Urine Urobilinogen 0.2 (<2.0) EU/dL Ur Leukocyte Esterase NEGATIVE (NEGATIVE) Urine RBC 0-1 (0-2/HPF) Urine WBC 0-1 (0-5/HPF) Ur Epithelial Cells RARE (NONE-FEW) Amorphous Sediment FEW (NEGATIVE) Urine Bacteria FEW (NEGATIVE) 10/31/18 10/31/18 10/31/18 Range/Units 06:28 11:30 16:28 WBC (4.0-11.0) K/uL RBC (4.30-5.90) M/uL Hgb (12.0-16.0) g/dL Hct (36.0-46.0) % MCV (80.0-98.0) fL MCH (27.0-32.0) pg MCHC (31.0-37.0) g/dL RDW Std Deviation (28.0-62.0) fl RDW Coeff of Luz (11.0-15.0) % Plt Count (150-400) K/uL MPV (7.40-12.00) fL Add Manual Diff Neutrophils % (Manual) (48.0-80.0) % Band Neutrophils % % Lymphocytes % (Manual) (16.0-40.0) % Monocytes % (Manual) (0.0-15.0) % Basophils % (Manual) (0.0-1.5) % Nucleated RBC % /100WBC Absolute Seg Neuts (1.4-5.7) Band Neutrophils # Lymphocytes # (Manual) (0.6-2.4) Monocytes # (Manual) (0.0-0.8) Eosinophils # (Manual) (0.0-0.7) Basophils # (Manual) (0.0-0.1) Nucleated RBCs # K/uL Sodium (136-145) mmol/L Potassium (3.5-5.1) mmol/L Chloride (98-107) mmol/L Carbon Dioxide (21.0-32.0) mmol/L BUN (7.0-18.0) mg/dL Creatinine (0.6-1.0) mg/dL Est Cr Clr Drug Dosing mL/min Estimated GFR (MDRD) ml/min Glucose (74-106) mg/dL POC Glucose 114 H 141 H 107 (60-110) mg/dL Calcium (8.5-10.1) mg/dL Urine Color Urine Appearance Urine pH (5.0-8.0) Ur Specific [place] (1.001-1.035) Urine Protein (NEGATIVE) mg/dL Urine Glucose (UA) (NEGATIVE) mg/dL Urine Ketones (NEGATIVE) mg/dL Urine Occult Blood (NEGATIVE) Urine Nitrite (NEGATIVE) Urine Bilirubin (NEGATIVE) Urine Urobilinogen (<2.0) EU/dL Ur Leukocyte Esterase (NEGATIVE) Urine RBC (0-2/HPF) Urine WBC (0-5/HPF) Ur Epithelial Cells (NONE-FEW) Amorphous Sediment (NEGATIVE) Urine Bacteria (NEGATIVE) Med Orders - Current: Current Medications Acetaminophen (Tylenol) 650 mg PO Q4H PRN PRN Reason: Fever Bupropion HCl (Wellbutrin Xl) 150 mg PO DAILY [facility] Last Admin: 10/31/18 08:48 Dose: 150 mg Docusate Sodium (Colace) 100 mg PO DAILY PRN PRN Reason: Constipation Enoxaparin Sodium (Lovenox) 30 mg SUBCUT Q24H [facility] Last Admin: 10/31/18 08:23 Dose: 30 mg Lisinopril/HCTZ (Lisinopril-Hctz 10-12.5 Mg) 1 tab PO DAILY [facility] Last Admin: 10/31/18 08:48 Dose: 1 tab Insulin Aspart (Novolog) 0 unit SUBCUT TIDAC [facility]; Protocol Last Admin: 10/31/18 17:24 Dose: Not Given Lisinopril (Prinivil) 10 mg PO DAILY [facility] Last Admin: 10/31/18 08:48 Dose: 10 mg Pioglitazone HCl (Actos) 15 mg PO DAILY [facility] Last Admin: 10/31/18 08:49 Dose: 15 mg Risperidone (Risperidal) 2 mg PO BEDTIME [facility] Last Admin: 10/30/18 20:58 Dose: 2 mg Sertraline HCl (Zoloft) 150 mg PO DAILY [facility] Last Admin: 10/31/18 08:50 Dose: 150 mg Sodium Chloride (Saline Flush) 10 ml FLUSH ASDIRECTED PRN PRN Reason: Keep Vein Open Sodium Chloride (Saline Flush) 2.5 ml FLUSH ASDIRECTED PRN PRN Reason: Keep Vein Open Tolterodine Tartrate (Detrol) 2 mg PO BID [facility] Last Admin: 10/31/18 08:48 Dose: 2 mg Trazodone HCl (Trazodone) 200 mg PO BEDTIME [facility] Discontinued Medications Enoxaparin Sodium (Lovenox) 40 mg SUBCUT Q24H [facility] Sodium Chloride (Normal Saline) 1,000 mls @ 150 mls/hr IV STAT ONE Stop: 10/31/18 00:13 Last Admin: 10/30/18 17:51 Dose: 150 mls/hr Trazodone HCl (Trazodone Hcl) 200 mg PO BEDTIME [facility] Last Admin: 10/30/18 21:49 Dose: Not Given Trazodone HCl (Trazodone) 200 mg PO BEDTIME [facility] Stop: 10/30/18 21:46 Last Admin: 10/30/18 21:46 Dose: 200 mg - My Orders Last 24 Hours: My Active Orders 10/31/18 07:04 Admission Status [Patient Status] [ADT] Routine
[2018-10-31] MEDS: risperiDONE 1 MG Tab PO SCH (21:39)
[2018-10-31] MEDS: traZODone 50 MG Tab PO SCH (21:40)
[2018-11-01] MEDS: Insulin Aspart 100 Units/ML 3 ML Pen SUBCUT SCH ×3 (06:35→18:07)
[2018-11-01] MEDS: Enoxaparin 30 MG/0.3 ML Syringe SUBCUT SCH (06:54)
[2018-11-01] MEDS: Sertraline 100 MG Tab PO SCH (09:27)
[2018-11-01] MEDS: Pioglitazone 15 MG Tab PO SCH (09:29)
[2018-11-01] MEDS: buPROPion 150 MG Tab.ER PO SCH (09:53)
[2018-11-01] MEDS: Lisinopril 10 MG Tab PO SCH (10:00)
--- NOTE | 2018-11-01 10:27 | PCM.PN ---
<May Rodriguez - Last Filed: 11/01/18 10:22> - General Info Date of Service: 11/01/18 Subjective Update: patient seen at bedside; endorses no new complaints. Understands Dr. Luna will be consulting with her this morning at 8 AM. No other symptoms reported except for lower extremity weakness. - Review of Systems General: Reports: Weakness. Denies: Fever Pulmonary: Denies: Shortness of Breath, Cough Cardiovascular: Denies: Chest Pain Gastrointestinal: Denies: Abdominal Pain, Constipation, Diarrhea Genitourinary: Denies: Dysuria, Frequency, Burning, Pain Musculoskeletal: Denies: Neck Pain, Leg Pain Neurological: Denies: Confusion, Dizziness, Headache, Numbness Psychiatric: Reports: Depression, Anxiety - Patient Data Vitals - Most Recent: Last Vital Signs Temp 97.7 F 11/01/18 07:59 Pulse 76 11/01/18 07:59 Resp 15 11/01/18 07:59 BP 110/53 L 11/01/18 07:59 Pulse Ox 94 L 11/01/18 07:59 Weight - Most Recent: 90 kg I&O - Last 24 Hours: Intake & Output 10/31/18 11/01/18 11/01/18 22:59 06:59 14:59 Intake Total 340 700 Output Total 150 735 Balance 190 -35 Lab Results Last 24 Hours: Laboratory Results - last 24 hr 10/31/18 10/31/18 11/01/18 Range/Units 11:30 16:28 05:10 WBC 10.72 (4.0-11.0) K/uL RBC 4.20 L (4.30-5.90) M/uL Hgb 11.6 L (12.0-16.0) g/dL Hct 37.1 (36.0-46.0) % MCV 88.3 (80.0-98.0) fL MCH 27.6 (27.0-32.0) pg MCHC 31.3 (31.0-37.0) g/dL RDW Std Deviation 52.0 (28.0-62.0) fl RDW Coeff of Luz 17 H (11.0-15.0) % Plt Count 200 (150-400) K/uL MPV 10.20 (7.40-12.00) fL Add Manual Diff YES Neutrophils % (Manual) 71 (48.0-80.0) % Band Neutrophils % 5 % Lymphocytes % (Manual) 22 (16.0-40.0) % Monocytes % (Manual) 2 (0.0-15.0) % Nucleated RBC % 0.0 /100WBC Absolute Seg Neuts 7.6 H (1.4-5.7) Band Neutrophils # 0.5 Lymphocytes # (Manual) 2.4 (0.6-2.4) Monocytes # (Manual) 0.2 (0.0-0.8) Nucleated RBCs # 0 K/uL POC Glucose 141 H 107 (60-110) mg/dL 11/01/18 Range/Units 06:07 WBC (4.0-11.0) K/uL RBC (4.30-5.90) M/uL Hgb (12.0-16.0) g/dL Hct (36.0-46.0) % MCV (80.0-98.0) fL MCH (27.0-32.0) pg MCHC (31.0-37.0) g/dL RDW Std Deviation (28.0-62.0) fl RDW Coeff of Luz (11.0-15.0) % Plt Count (150-400) K/uL MPV (7.40-12.00) fL Add Manual Diff Neutrophils % (Manual) (48.0-80.0) % Band Neutrophils % % Lymphocytes % (Manual) (16.0-40.0) % Monocytes % (Manual) (0.0-15.0) % Nucleated RBC % /100WBC Absolute Seg Neuts (1.4-5.7) Band Neutrophils # Lymphocytes # (Manual) (0.6-2.4) Monocytes # (Manual) (0.0-0.8) Nucleated RBCs # K/uL POC Glucose 112 H (60-110) mg/dL Jonny Results Last 24 Hours: Microbiology 10/31/18 06:13 Aerobic Blood Culture - Preliminary Blood NO GROWTH AFTER 1 DAY Anaerobic Blood Culture - Preliminary NO GROWTH AFTER 1 DAY Med Orders - Current: Current Medications Acetaminophen (Tylenol) 650 mg PO Q4H PRN PRN Reason: Fever Bupropion HCl (Wellbutrin Xl) 300 mg PO DAILY ERIK Last Admin: 11/01/18 09:53 Dose: 300 mg Docusate Sodium (Colace) 100 mg PO DAILY PRN PRN Reason: Constipation Enoxaparin Sodium (Lovenox) 30 mg SUBCUT Q24H [facility] Last Admin: 11/01/18 06:54 Dose: 30 mg Lisinopril/HCTZ (Lisinopril-Hctz 10-12.5 Mg) 1 tab PO DAILY [facility] Last Admin: 10/31/18 08:48 Dose: 1 tab Insulin Aspart (Novolog) 0 unit SUBCUT TIDAC [facility]; Protocol Last Admin: 11/01/18 06:35 Dose: Not Given Lisinopril (Prinivil) 10 mg PO DAILY [facility] Last Admin: 10/31/18 08:48 Dose: 10 mg Pioglitazone HCl (Actos) 15 mg PO DAILY [facility] Last Admin: 11/01/18 09:29 Dose: 15 mg Risperidone (Risperidal) 2 mg PO BEDTIME [facility] Last Admin: 10/31/18 21:39 Dose: 2 mg Sertraline HCl (Zoloft) 150 mg PO DAILY [facility] Last Admin: 11/01/18 09:27 Dose: 150 mg Sodium Chloride (Saline Flush) 10 ml FLUSH ASDIRECTED PRN PRN Reason: Keep Vein Open Sodium Chloride (Saline Flush) 2.5 ml FLUSH ASDIRECTED PRN PRN Reason: Keep Vein Open Tolterodine Tartrate (Detrol) 2 mg PO BID [facility] Last Admin: 11/01/18 09:29 Dose: 2 mg Trazodone HCl (Trazodone) 200 mg PO BEDTIME [facility] Last Admin: 10/31/18 21:40 Dose: 200 mg Discontinued Medications Bupropion HCl (Wellbutrin Xl) 150 mg PO DAILY [facility] Last Admin: 10/31/18 08:48 Dose: 150 mg Enoxaparin Sodium (Lovenox) 40 mg SUBCUT Q24H [facility] Sodium Chloride (Normal Saline) 1,000 mls @ 150 mls/hr IV STAT ONE Stop: 10/31/18 00:13 Last Admin: 10/30/18 17:51 Dose: 150 mls/hr Trazodone HCl (Trazodone Hcl) 200 mg PO BEDTIME [facility] Last Admin: 10/30/18 21:49 Dose: Not Given Trazodone HCl (Trazodone) 200 mg PO BEDTIME [facility] Stop: 10/30/18 21:46 Last Admin: 10/30/18 21:46 Dose: 200 mg - Exam General: Alert, Oriented HEENT: EOMI Neck: Supple, Trachea Midline Lungs: Clear to Auscultation, Normal Respiratory Effort Cardiovascular: Regular Rate, Regular Rhythm GI/Abdominal Exam: Soft Back Exam: Full Range of Motion Extremities: Other (lefty thigh :dry flaky skin, non-tender, chronic l/e swelling , non-tender, FROM , slow but can move all extremities. ) Skin: Other (chronic wound of upper extremity ) Neurological: Other Psy/Mental Status: Alert, Anxious - Problem List & Annotations (1) Total self-care deficit SNOMED Code(s): 27974972 Code(s): R41.89 - OTH SYMPTOMS AND SIGNS W COGNITIVE FUNCTIONS AND AWARENESS Status: Acute Current Visit: Yes (2) Weakness SNOMED Code(s): 40016219 Code(s): R53.1 - WEAKNESS Status: Acute Current Visit: Yes (3) Morbid obesity with BMI of 40.0-44.9, adult SNOMED Code(s): 915612319, 06404267803090 Code(s): E66.01 - MORBID (SEVERE) OBESITY DUE TO EXCESS CALORIES; Z68.41 - BODY MASS INDEX (BMI) 40.0-44.9, ADULT Status: Chronic Priority: Medium Current Visit: No (4) Diabetes mellitus type 2 in obese SNOMED Code(s): 29772617 Code(s): E11.69 - TYPE 2 DIABETES MELLITUS WITH OTHER SPECIFIED COMPLICATION ; E66.9 - OBESITY, UNSPECIFIED Status: Chronic Priority: Medium Current Visit: No - Problem List Review Problem List Initiated/Reviewed/Updated: Yes - My Orders Last 24 Hours: My Active Orders 10/31/18 09:35 Consult to Spiritual Care [CONS] Routine 10/31/18 17:28 Consult to Physician [CONS] Routine 10/31/18 17:29 Notify Provider Consults [RC] ASDIRECTED 10/31/18 21:00 traZODone 200 mg PO BEDTIME 11/01/18 08:32 Wound Care [RC] DAILY 11/01/18 09:00 buPROPion [Wellbutrin XL] 300 mg PO DAILY - Plan Plan:: Assessment: 1. Ambulatory dysfunction secondary to weakness with unknown etiology. 2. Recent history of fall with unknown etiology resulting in rhabdomyolysis 3. recent history of urinary tract infection. 4. Past medical history of type 2 diabetes, osteoarthritis, depression/anxiety, flattened affect Plan: Admit to inpatient. Full code. Diet: diabetic diet/soft mechanical. Intake output per routine. Vitals per routine. Activity: up with assistance. GI prophylaxis: pantoprazole 40 daily. DVT prophylaxis: Lovenox 30. 1. Ambulatory dysfunction with weakness: patient will benefit from rehabilitation therapy; this may become a disposition issue; however at this time we'll order CBC, BMP, and repeat urinalysis in a.m.. Repeat blood cultures. Physical therapy/occupational therapy evaluation. Daily strengthening. 2. Dr Luna consult completed: recommended increase in Wellbutrin XL to 300 mg Daily; please see Consult note for full recommendations and disposition recommendations. 3. past medical history: continue home medications at this time. 4. We'll contact social work/case packer to discuss disposition options. <Joaquim Balderrama - Last Filed: 11/01/18 10:49> - General Info Admission Dx/Problem (Free Text): I have seen and examined the patient independently of medical imaging specialist, Dr. Jennifer MD. I have reviewed and agree with the plan of care as outlined for this patient by him. I have discussed the case with him. Please see orders. - Patient Data Vitals - Most Recent: Last Vital Signs Temp 36.5 C 11/01/18 07:59 Pulse 76 11/01/18 07:59 Resp 15 11/01/18 07:59 BP 107/41 L 11/01/18 10:00 Pulse Ox 94 L 11/01/18 07:59 I&O - Last 24 Hours: Intake & Output 10/31/18 11/01/18 11/01/18 22:59 06:59 14:59 Intake Total 340 700 Output Total 150 735 Balance 190 -35 Lab Results Last 24 Hours: Laboratory Results - last 24 hr 10/31/18 10/31/18 11/01/18 Range/Units 11:30 16:28 05:10 WBC 10.72 (4.0-11.0) K/uL RBC 4.20 L (4.30-5.90) M/uL Hgb 11.6 L (12.0-16.0) g/dL Hct 37.1 (36.0-46.0) % MCV 88.3 (80.0-98.0) fL MCH 27.6 (27.0-32.0) pg MCHC 31.3 (31.0-37.0) g/dL RDW Std Deviation 52.0 (28.0-62.0) fl RDW Coeff of Luz 17 H (11.0-15.0) % Plt Count 200 (150-400) K/uL MPV 10.20 (7.40-12.00) fL Add Manual Diff YES Neutrophils % (Manual) 71 (48.0-80.0) % Band Neutrophils % 5 % Lymphocytes % (Manual) 22 (16.0-40.0) % Monocytes % (Manual) 2 (0.0-15.0) % Nucleated RBC % 0.0 /100WBC Absolute Seg Neuts 7.6 H (1.4-5.7) Band Neutrophils # 0.5 Lymphocytes # (Manual) 2.4 (0.6-2.4) Monocytes # (Manual) 0.2 (0.0-0.8) Nucleated RBCs # 0 K/uL POC Glucose 141 H 107 (60-110) mg/dL 11/01/18 Range/Units 06:07 WBC (4.0-11.0) K/uL RBC (4.30-5.90) M/uL Hgb (12.0-16.0) g/dL Hct (36.0-46.0) % MCV (80.0-98.0) fL MCH (27.0-32.0) pg MCHC (31.0-37.0) g/dL RDW Std Deviation (28.0-62.0) fl RDW Coeff of Luz (11.0-15.0) % Plt Count (150-400) K/uL MPV (7.40-12.00) fL Add Manual Diff Neutrophils % (Manual) (48.0-80.0) % Band Neutrophils % % Lymphocytes % (Manual) (16.0-40.0) % Monocytes % (Manual) (0.0-15.0) % Nucleated RBC % /100WBC Absolute Seg Neuts (1.4-5.7) Band Neutrophils # Lymphocytes # (Manual) (0.6-2.4) Monocytes # (Manual) (0.0-0.8) Nucleated RBCs # K/uL POC Glucose 112 H (60-110) mg/dL Jonny Results Last 24 Hours: Microbiology 10/31/18 06:13 Aerobic Blood Culture - Preliminary Blood NO GROWTH AFTER 1 DAY Anaerobic Blood Culture - Preliminary NO GROWTH AFTER 1 DAY Med Orders - Current: Current Medications Acetaminophen (Tylenol) 650 mg PO Q4H PRN PRN Reason: Fever Bupropion HCl (Wellbutrin Xl) 300 mg PO DAILY [facility] Last Admin: 11/01/18 09:53 Dose: 300 mg Docusate Sodium (Colace) 100 mg PO DAILY PRN PRN Reason: Constipation Enoxaparin Sodium (Lovenox) 30 mg SUBCUT Q24H [facility] Last Admin: 11/01/18 06:54 Dose: 30 mg Lisinopril/HCTZ (Lisinopril-Hctz 10-12.5 Mg) 1 tab PO DAILY [facility] Last Admin: 11/01/18 10:37 Dose: Not Given Insulin Aspart (Novolog) 0 unit SUBCUT TIDAC [facility]; Protocol Last Admin: 11/01/18 06:35 Dose: Not Given Lisinopril (Prinivil) 10 mg PO DAILY [facility] Last Admin: 11/01/18 10:00 Dose: Not Given Pioglitazone HCl (Actos) 15 mg PO DAILY [facility] Last Admin: 11/01/18 09:29 Dose: 15 mg Risperidone (Risperidal) 2 mg PO BEDTIME [facility] Last Admin: 10/31/18 21:39 Dose: 2 mg Sertraline HCl (Zoloft) 150 mg PO DAILY [facility] Last Admin: 11/01/18 09:27 Dose: 150 mg Sodium Chloride (Saline Flush) 10 ml FLUSH ASDIRECTED PRN PRN Reason: Keep Vein Open Sodium Chloride (Saline Flush) 2.5 ml FLUSH ASDIRECTED PRN PRN Reason: Keep Vein Open Tolterodine Tartrate (Detrol) 2 mg PO BID [facility] Last Admin: 11/01/18 09:29 Dose: 2 mg Trazodone HCl (Trazodone) 200 mg PO BEDTIME [facility] Last Admin: 10/31/18 21:40 Dose: 200 mg Discontinued Medications Bupropion HCl (Wellbutrin Xl) 150 mg PO DAILY [facility] Last Admin: 10/31/18 08:48 Dose: 150 mg Enoxaparin Sodium (Lovenox) 40 mg SUBCUT Q24H [facility] Sodium Chloride (Normal Saline) 1,000 mls @ 150 mls/hr IV STAT ONE Stop: 10/31/18 00:13 Last Admin: 10/30/18 17:51 Dose: 150 mls/hr Trazodone HCl (Trazodone Hcl) 200 mg PO BEDTIME [facility] Last Admin: 10/30/18 21:49 Dose: Not Given Trazodone HCl (Trazodone) 200 mg PO BEDTIME ERIK Stop: 10/30/18 21:46 Last Admin: 10/30/18 21:46 Dose: 200 mg
[2018-11-01] MEDS: Lisinopril/Hydrochlorothiazide 10-12.5 MG Tab PO SCH (10:37)
--- NOTE | 2018-11-01 14:40 | CONS ---
DATE OF CONSULTATION: 11/01/2018 DATE OF : 1955 PRIMARY CARE PHYSICIAN: None PCP Site where the services are provided is [facility] in [place], [place]. Site where the services are provided from, our offices in [place]. Length of service for this 60-minute inpatient telemedicine event is 60 minutes. IDENTIFICATION: The patient is a 63-year-old female who was admitted to the [facility] inpatient med/surg unit in [place], [place]. She is seen for psychiatric consultation per the request of staff attending, Dr. Balderrama and his treatment team. CHIEF COMPLAINT: "I am having trouble moving." HISTORY OF PRESENT ILLNESS: The patient is a 63-year-old female who was originally admitted earlier in the month for issues of dehydration following rhabdomyolysis. The patient was subsequently diagnosed with a UTI and she also has conditions of diabetes and hypertension. The patient was rehydrated and was thought to be doing better, was discharged on October 31, 2018 back to home. Unfortunately, the patient got home and then promptly fell and was brought back to the hospital by her within a couple of hours of discharge. At this point in time, a psychiatric consultation has been requested as there was concern on the staff that the patient may be struggling with some depression, and also staff has continued to work with the patient to see if they can get her medically stabilized, but they are feeling that the patient may need some type of transitional living situation as she continues to get her physical strength back. For her part, the patient is stating "I want to go home" when she is medically stable and she is denying any issues with anxiety or depression at this point in time, though when she is asked specifically about depression, she is reluctant to talk in-depth about any depressed mood she might be experiencing. When she finally does talk, she is stating "I am not depressed." She states her symptoms of weakness have been going on for about 2 weeks. She denies that she is suicidal or homicidal. She denies any psychotic, delusional, or paranoid symptoms. She denies any illicit substance use or excessive alcohol as complicating her clinical picture. She is alert and oriented x3. She is on a regimen of Risperdal, trazodone, Wellbutrin, and Zoloft. She states she has been taking these medications for mental health issues for some time now. She feels that the medications are effective. MEDICATIONS: At time of presentation: 1. Risperdal 2 mg at bedtime. 2. Trazodone 200 mg at bedtime. 3. Wellbutrin XL 150 mg q.a.m. 4. Zoloft 150 mg q.a.m. ALLERGIES: 1. Codeine. 2. Penicillin. 3. Tetracycline. 4. Propoxyphene. PAST MEDICAL HISTORY: 1. Diabetes. 2. Hypertension. 3. UTI. 4. Rhabdomyolysis. REVIEW OF SYSTEMS: Aside from endocrine, cardiovascular, genitourinary, and musculoskeletal, all other major organ systems are negative at this point in time for acute difficulties or complications. FAMILY PSYCHIATRIC AND CD HISTORY: None reported. PAST PSYCHIATRIC AND CD HISTORY: The patient reports 2 psychiatric inpatient hospitalizations in the past. Denies any chemical dependency treatments in the past. She is a nontobacco user. PAST PSYCHIATRIC DIAGNOSIS: Includes depression. PRIMARY OUTPATIENT CARE PROVIDER: Dr. Johnson. SOCIAL HISTORY: The patient was born in [place], [place]; raised out in [place]. She has been living in [place] since 1969. She has been x1 for 41 years. 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 She has 2 children from the marriage; 1 child who lives in [place], [place], another child who lives in [place], [place]. She states she is close to both of them. She denies any prior service. She is raised Religious in terms of her emma formation and she enjoys watching TV in her spare time. MENTAL STATUS EXAMINATION: The patient is a 63-year-old white female, in no apparent distress. Speech is of increasing latency of response and shortened duration of utterance. Psychomotor activity appears within normal limits. There are no abnormal motor movements or tics observed. Gait and station are not observed as the patient is lying in bed during the consult. Mood is initially endorsing some symptoms of depression, but then denying depression. Affect is flat, but cooperative overall for the purposes of the inpatient consult. There is no behavioral or stated evidence of acute suicidal or homicidal ideation or acute psychotic, delusional, or paranoid symptoms. Thought processes are significant for some thought blocking, but there are no acute manic symptoms or loose associations evident. Judgment and insight appear unimpaired overall at this point in time. Motivation for help appears fair. VITAL SIGNS: 110/53, 76, 16, 97.7 degrees. IMPRESSION: Latham I: 1. Major depressive disorder, recurrent, F33.2. 2. Rule out schizoaffective disorder. Latham II: None. Latham III: 1. Diabetes. 2. Hypertension. 3. Urinary tract infection. 4. Recent history of rhabdomyolysis. Latham IV: Severe. Latham V: 55. PLAN: 1. Recommend increasing patient's Wellbutrin XL from 150 to 300 mg q.a.m. to see if this will help improve the patient's mood from where it appears to be at this point in time as the patient appears somewhat flat and restricted and she was initially endorsing symptoms of depression before she denied them. 2. Continue Zoloft 150 mg q.a.m. also for mood. 3. Continue trazodone 200 mg at bedtime for mood and sleep initiation and maintenance. 4. Continue Risperdal 2 mg at bedtime for clarity of thought and mood stability. 5. Other medications as dosed and prescribed by the patient's primary inpatient medical treatment team. 6. I do recommend that when patient is medically stabilized that she be transferred to a transitional living facility for further ability to recuperate and gain strength in a safe environment as the discharge to home proved untenable when it was attempted on October 31, 2018. 7. Medication compliance. 8. We will continue to follow up with patient on an as- needed basis while she remains on the inpatient med/surg unit at [facility]. 9. We will follow up with patient sooner if there are any complications in the interim. 10.Crisis plan is in place. DONALDO / TRISTA /[id number]
[2018-11-01] MEDS: traZODone 50 MG Tab PO SCH (21:45)
[2018-11-01] MEDS: risperiDONE 1 MG Tab PO SCH (21:45)
[2018-11-02 06:09] LABS: CARBON DIOXIDE,CO2 29.5 mmol/L (21.0-32.0); POTASSIUM,K 3.9 mmol/L (3.5-5.1)
[2018-11-02] MEDS: Insulin Aspart 100 Units/ML 3 ML Pen SUBCUT SCH ×3 (06:30→17:35)
[2018-11-02] MEDS: Enoxaparin 30 MG/0.3 ML Syringe SUBCUT SCH (06:49)
[2018-11-02] MEDS: Lisinopril 10 MG Tab PO SCH (08:53)
[2018-11-02] MEDS: Sertraline 100 MG Tab PO SCH (08:54)
[2018-11-02] MEDS: buPROPion 150 MG Tab.ER PO SCH (08:56)
[2018-11-02] MEDS: Lisinopril/Hydrochlorothiazide 10-12.5 MG Tab PO SCH (08:58)
[2018-11-02] MEDS: Pioglitazone 15 MG Tab PO SCH (08:58)
--- NOTE | 2018-11-02 10:31 | PCM.PN ---
<May Rodriguez - Last Filed: 11/02/18 10:26> - General Info Date of Service: 11/02/18 Subjective Update: A.m.: Patient seen in hallway with physical therapy; ambulating with assistance. Denies any new symptoms or side effects except for persistent chronic lower extremity weakness. Denies any fevers, chills, body aches, dysuria , polyuria. Patient otherwise has no other concerns at this time. - Review of Systems General: Reports: No Symptoms. Denies: Fever, Weakness Pulmonary: Denies: Shortness of Breath, Cough Cardiovascular: Denies: Chest Pain, Palpitations Gastrointestinal: Denies: Abdominal Pain, Constipation, Diarrhea Genitourinary: Denies: Dysuria, Frequency Musculoskeletal: Reports: Other (lower extremity weakness ) Neurological: Denies: Confusion, Dizziness, Headache Psychiatric: Reports: Depression, Anxiety - Patient Data Vitals - Most Recent: Last Vital Signs Temp 97.7 F 11/02/18 04:00 Pulse 85 11/02/18 04:00 Resp 14 11/02/18 04:00 BP 126/64 11/02/18 08:53 Pulse Ox 93 L 11/02/18 04:00 Weight - Most Recent: 90 kg I&O - Last 24 Hours: Intake & Output 11/01/18 11/02/18 11/02/18 22:59 06:59 14:59 Intake Total 720 900 Output Total 898 765 Balance -178 135 Lab Results Last 24 Hours: Laboratory Results - last 24 hr 11/01/18 11/01/18 11/02/18 Range/Units 11:19 17:43 04:55 Sodium 143 (136-145) mmol/L Potassium 3.9 (3.5-5.1) mmol/L Chloride 105 (98-107) mmol/L Carbon Dioxide 29.5 (21.0-32.0) mmol/L BUN 22 H (7.0-18.0) mg/dL Creatinine 1.0 (0.6-1.0) mg/dL Est Cr Clr Drug Dosing 40.29 mL/min Estimated GFR (MDRD) 55.6 ml/min Glucose 114 H (74-106) mg/dL POC Glucose 120 H 110 (60-110) mg/dL Calcium 9.6 (8.5-10.1) mg/dL Jonny Results Last 24 Hours: Microbiology 10/31/18 06:13 Aerobic Blood Culture - Preliminary Blood NO GROWTH AFTER 2 DAYS Anaerobic Blood Culture - Preliminary NO GROWTH AFTER 2 DAYS Med Orders - Current: Current Medications Acetaminophen (Tylenol) 650 mg PO Q4H PRN PRN Reason: Fever Bupropion HCl (Wellbutrin Xl) 300 mg PO DAILY [facility] Last Admin: 11/02/18 08:56 Dose: 300 mg Docusate Sodium (Colace) 100 mg PO DAILY PRN PRN Reason: Constipation Enoxaparin Sodium (Lovenox) 30 mg SUBCUT Q24H [facility] Last Admin: 11/02/18 06:49 Dose: 30 mg Lisinopril/HCTZ (Lisinopril-Hctz 10-12.5 Mg) 1 tab PO DAILY [facility] Last Admin: 11/02/18 08:58 Dose: 1 tab Insulin Aspart (Novolog) 0 unit SUBCUT TIDAC [facility]; Protocol Last Admin: 11/02/18 06:30 Dose: Not Given Lisinopril (Prinivil) 10 mg PO DAILY [facility] Last Admin: 11/02/18 08:53 Dose: 10 mg Pioglitazone HCl (Actos) 15 mg PO DAILY [facility] Last Admin: 11/02/18 08:58 Dose: 15 mg Risperidone (Risperidal) 2 mg PO BEDTIME [facility] Last Admin: 11/01/18 21:45 Dose: 2 mg Sertraline HCl (Zoloft) 150 mg PO DAILY [facility] Last Admin: 11/02/18 08:54 Dose: 150 mg Sodium Chloride (Saline Flush) 10 ml FLUSH ASDIRECTED PRN PRN Reason: Keep Vein Open Sodium Chloride (Saline Flush) 2.5 ml FLUSH ASDIRECTED PRN PRN Reason: Keep Vein Open Tolterodine Tartrate (Detrol) 2 mg PO BID [facility] Last Admin: 11/02/18 08:54 Dose: 2 mg Trazodone HCl (Trazodone) 200 mg PO BEDTIME [facility] Last Admin: 11/01/18 21:45 Dose: 200 mg Discontinued Medications Bupropion HCl (Wellbutrin Xl) 150 mg PO DAILY [facility] Last Admin: 10/31/18 08:48 Dose: 150 mg Enoxaparin Sodium (Lovenox) 40 mg SUBCUT Q24H [facility] Sodium Chloride (Normal Saline) 1,000 mls @ 150 mls/hr IV STAT ONE Stop: 10/31/18 00:13 Last Admin: 10/30/18 17:51 Dose: 150 mls/hr Trazodone HCl (Trazodone Hcl) 200 mg PO BEDTIME [facility] Last Admin: 10/30/18 21:49 Dose: Not Given Trazodone HCl (Trazodone) 200 mg PO BEDTIME [facility] Stop: 10/30/18 21:46 Last Admin: 10/30/18 21:46 Dose: 200 mg - Exam General: Alert, Oriented, Cooperative HEENT: EOMI, Mucous Membr. Moist/Davie Lungs: Clear to Auscultation, Normal Respiratory Effort Cardiovascular: Regular Rate, Regular Rhythm Extremities: Other (lower extremity chronic non-pitting edema stable; unchanged from yesterday. ) Wound/Incisions: Healing Well Neurological: Other (improving on gait w/ PT ) Psy/Mental Status: Alert, Other (flattened affect; unchanged from yesterday. ) - Problem List & Annotations (1) Total self-care deficit SNOMED Code(s): 79435037 Code(s): R41.89 - OTH SYMPTOMS AND SIGNS W COGNITIVE FUNCTIONS AND AWARENESS Status: Acute Current Visit: Yes (2) Weakness SNOMED Code(s): 40274328 Code(s): R53.1 - WEAKNESS Status: Acute Current Visit: Yes (3) Morbid obesity with BMI of 40.0-44.9, adult SNOMED Code(s): 750501088, 98948949131603 Code(s): E66.01 - MORBID (SEVERE) OBESITY DUE TO EXCESS CALORIES; Z68.41 - BODY MASS INDEX (BMI) 40.0-44.9, ADULT Status: Chronic Priority: Medium Current Visit: No (4) Diabetes mellitus type 2 in obese SNOMED Code(s): 42244636 Code(s): E11.69 - TYPE 2 DIABETES MELLITUS WITH OTHER SPECIFIED COMPLICATION ; E66.9 - OBESITY, UNSPECIFIED Status: Chronic Priority: Medium Current Visit: No - Problem List Review Problem List Initiated/Reviewed/Updated: Yes - Plan Plan:: Assessment: 1. Ambulatory dysfunction secondary to weakness with unknown etiology. 2. Recent history of fall with unknown etiology resulting in rhabdomyolysis 3. recent history of urinary tract infection. 4. Past medical history of type 2 diabetes, osteoarthritis, depression/anxiety, flattened affect Plan: Admit to inpatient. Full code. Diet: diabetic diet/soft mechanical. Intake output per routine. Vitals per routine. Activity: up with assistance. GI prophylaxis: pantoprazole 40 daily. DVT prophylaxis: Lovenox 30. 1. Ambulatory dysfunction with weakness: patient will continue rehabilitation therapy; this may become a disposition issue; . Repeat blood cultures:awaiting results. Physical therapy/occupational therapy:Daily strengthening. Continuing to improve with PT/OT. Will continue Enterostomal care w/ recommendations; we appreciate their help. 2. Dr Luna consult completed: recommended increase in Wellbutrin XL to 300 mg Daily; please see Consult note for full recommendations and disposition recommendations. 3. past medical history: continue home medications at this time. 4. Social work/dependency case manager are working on placement; we appreciate their help in this matter. <Joaquim Balderrama - Last Filed: 11/02/18 12:50> - General Info Admission Dx/Problem (Free Text): I have seen and examined the patient independently of biomedical repair technician, Dr. Jennifer MD. I have reviewed and agree with the plan of care as outlined for this patient by him. I have discussed the case with him. Please see orders. - Patient Data Vitals - Most Recent: Last Vital Signs Temp 36.3 C 11/02/18 12:27 Pulse 88 11/02/18 12:27 Resp 18 11/02/18 12:27 BP 142/52 H 11/02/18 12:27 Pulse Ox 97 11/02/18 12:27 I&O - Last 24 Hours: Intake & Output 11/01/18 11/02/18 11/02/18 22:59 06:59 14:59 Intake Total 720 900 Output Total 898 765 Balance -178 135 Lab Results Last 24 Hours: Laboratory Results - last 24 hr 11/01/18 11/02/18 11/02/18 Range/Units 17:43 04:55 06:23 Sodium 143 (136-145) mmol/L Potassium 3.9 (3.5-5.1) mmol/L Chloride 105 (98-107) mmol/L Carbon Dioxide 29.5 (21.0-32.0) mmol/L BUN 22 H (7.0-18.0) mg/dL Creatinine 1.0 (0.6-1.0) mg/dL Est Cr Clr Drug Dosing 40.29 mL/min Estimated GFR (MDRD) 55.6 ml/min Glucose 114 H (74-106) mg/dL POC Glucose 110 112 H (60-110) mg/dL Calcium 9.6 (8.5-10.1) mg/dL 11/02/18 Range/Units 11:44 Sodium (136-145) mmol/L Potassium (3.5-5.1) mmol/L Chloride (98-107) mmol/L Carbon Dioxide (21.0-32.0) mmol/L BUN (7.0-18.0) mg/dL Creatinine (0.6-1.0) mg/dL Est Cr Clr Drug Dosing mL/min Estimated GFR (MDRD) ml/min Glucose (74-106) mg/dL POC Glucose 151 H (60-110) mg/dL Calcium (8.5-10.1) mg/dL Jonny Results Last 24 Hours: Microbiology 10/31/18 06:13 Aerobic Blood Culture - Preliminary Blood NO GROWTH AFTER 2 DAYS Anaerobic Blood Culture - Preliminary NO GROWTH AFTER 2 DAYS Med Orders - Current: Current Medications Acetaminophen (Tylenol) 650 mg PO Q4H PRN PRN Reason: Fever Last Admin: 11/02/18 11:06 Dose: 650 mg Bupropion HCl (Wellbutrin Xl) 300 mg PO DAILY [facility] Last Admin: 11/02/18 08:56 Dose: 300 mg Docusate Sodium (Colace) 100 mg PO DAILY PRN PRN Reason: Constipation Enoxaparin Sodium (Lovenox) 30 mg SUBCUT Q24H [facility] Last Admin: 11/02/18 06:49 Dose: 30 mg Lisinopril/HCTZ (Lisinopril-Hctz 10-12.5 Mg) 1 tab PO DAILY [facility] Last Admin: 11/02/18 08:58 Dose: 1 tab Insulin Aspart (Novolog) 0 unit SUBCUT TIDAC [facility]; Protocol Last Admin: 11/02/18 12:29 Dose: 2 units Lisinopril (Prinivil) 10 mg PO DAILY [facility] Last Admin: 11/02/18 08:53 Dose: 10 mg Pioglitazone HCl (Actos) 15 mg PO DAILY [facility] Last Admin: 11/02/18 08:58 Dose: 15 mg Risperidone (Risperidal) 2 mg PO BEDTIME [facility] Last Admin: 11/01/18 21:45 Dose: 2 mg Sertraline HCl (Zoloft) 150 mg PO DAILY [facility] Last Admin: 11/02/18 08:54 Dose: 150 mg Sodium Chloride (Saline Flush) 10 ml FLUSH ASDIRECTED PRN PRN Reason: Keep Vein Open Sodium Chloride (Saline Flush) 2.5 ml FLUSH ASDIRECTED PRN PRN Reason: Keep Vein Open Tolterodine Tartrate (Detrol) 2 mg PO BID [facility] Last Admin: 11/02/18 08:54 Dose: 2 mg Trazodone HCl (Trazodone) 200 mg PO BEDTIME [facility] Last Admin: 11/01/18 21:45 Dose: 200 mg Discontinued Medications Bupropion HCl (Wellbutrin Xl) 150 mg PO DAILY [facility] Last Admin: 10/31/18 08:48 Dose: 150 mg Enoxaparin Sodium (Lovenox) 40 mg SUBCUT Q24H [facility] Sodium Chloride (Normal Saline) 1,000 mls @ 150 mls/hr IV STAT ONE Stop: 10/31/18 00:13 Last Admin: 10/30/18 17:51 Dose: 150 mls/hr Trazodone HCl (Trazodone Hcl) 200 mg PO BEDTIME [facility] Last Admin: 10/30/18 21:49 Dose: Not Given Trazodone HCl (Trazodone) 200 mg PO BEDTIME [facility] Stop: 10/30/18 21:46 Last Admin: 10/30/18 21:46 Dose: 200 mg
[2018-11-02] MEDS: Nystatin Topical Powder 15 GM Bottle TOP SCH ×2 (16:06→20:53)
[2018-11-02] MEDS: risperiDONE 1 MG Tab PO SCH (20:51)
[2018-11-02] MEDS: traZODone 50 MG Tab PO SCH (20:52)
[2018-11-03] MEDS: Insulin Aspart 100 Units/ML 3 ML Pen SUBCUT SCH ×3 (06:40→17:30)
[2018-11-03] MEDS: Enoxaparin 30 MG/0.3 ML Syringe SUBCUT SCH (06:43)
[2018-11-03] MEDS: Lisinopril 10 MG Tab PO SCH (08:46)
[2018-11-03] MEDS: Lisinopril/Hydrochlorothiazide 10-12.5 MG Tab PO SCH (08:46)
[2018-11-03] MEDS: Sertraline 100 MG Tab PO SCH (08:46)
[2018-11-03] MEDS: buPROPion 150 MG Tab.ER PO SCH (08:47)
[2018-11-03] MEDS: Pioglitazone 15 MG Tab PO SCH (08:47)
[2018-11-03] MEDS: Nystatin Topical Powder 15 GM Bottle TOP SCH ×2 (08:48→20:56)
--- NOTE | 2018-11-03 10:50 | PCM.PN ---
- General Info Date of Service: 11/03/18 Subjective Update: Patient reports she is doing ok today. Denies chest pain, shortness of breath, abdominal pain. Has been eating and drinking without issue. Was up walking with PT yesterday. - Review of Systems General: Reports: No Symptoms HEENT: Reports: No Symptoms Pulmonary: Reports: No Symptoms Cardiovascular: Reports: No Symptoms Gastrointestinal: Reports: No Symptoms Genitourinary: Reports: No Symptoms Musculoskeletal: Reports: Leg Pain Skin: Reports: No Symptoms Neurological: Reports: No Symptoms Psychiatric: Reports: Depression - Patient Data Vitals - Most Recent: Last Vital Signs Temp 97.0 F 11/03/18 07:46 Pulse 94 11/03/18 07:46 Resp 16 11/03/18 07:46 BP 104/62 11/03/18 08:46 Pulse Ox 94 L 11/03/18 07:46 Weight - Most Recent: 90 kg I&O - Last 24 Hours: Intake & Output 11/02/18 11/03/18 11/03/18 22:59 06:59 14:59 Intake Total 840 1200 Output Total 200 603 Balance 640 597 Lab Results Last 24 Hours: Laboratory Results - last 24 hr 11/02/18 11/02/18 11/02/18 Range/Units 06:23 11:44 16:46 POC Glucose 112 H 151 H 86 (60-110) mg/dL 11/02/18 11/03/18 Range/Units 20:17 06:18 POC Glucose 176 H 95 (60-110) mg/dL Jonny Results Last 24 Hours: Microbiology 10/31/18 06:13 Aerobic Blood Culture - Preliminary Blood NO GROWTH AFTER 3 DAYS Anaerobic Blood Culture - Preliminary NO GROWTH AFTER 3 DAYS Med Orders - Current: Current Medications Acetaminophen (Tylenol) 650 mg PO Q4H PRN PRN Reason: Fever Last Admin: 11/02/18 11:06 Dose: 650 mg Bupropion HCl (Wellbutrin Xl) 300 mg PO DAILY [facility] Last Admin: 11/03/18 08:47 Dose: 300 mg Docusate Sodium (Colace) 100 mg PO DAILY PRN PRN Reason: Constipation Enoxaparin Sodium (Lovenox) 30 mg SUBCUT Q24H [facility] Last Admin: 11/03/18 06:43 Dose: 30 mg Lisinopril/HCTZ (Lisinopril-Hctz 10-12.5 Mg) 1 tab PO DAILY [facility] Last Admin: 11/03/18 08:46 Dose: 1 tab Insulin Aspart (Novolog) 0 unit SUBCUT TIDAC [facility]; Protocol Last Admin: 11/03/18 06:40 Dose: Not Given Lisinopril (Prinivil) 10 mg PO DAILY [facility] Last Admin: 11/03/18 08:46 Dose: 10 mg Nystatin (Nystop) 0 gm TOP BID [facility] Last Admin: 11/03/18 08:48 Dose: 1 applic Pioglitazone HCl (Actos) 15 mg PO DAILY [facility] Last Admin: 11/03/18 08:47 Dose: 15 mg Risperidone (Risperidal) 2 mg PO BEDTIME [facility] Last Admin: 11/02/18 20:51 Dose: 2 mg Sertraline HCl (Zoloft) 150 mg PO DAILY [facility] Last Admin: 11/03/18 08:46 Dose: 150 mg Sodium Chloride (Saline Flush) 10 ml FLUSH ASDIRECTED PRN PRN Reason: Keep Vein Open Sodium Chloride (Saline Flush) 2.5 ml FLUSH ASDIRECTED PRN PRN Reason: Keep Vein Open Tolterodine Tartrate (Detrol) 2 mg PO BID [facility] Last Admin: 11/03/18 08:46 Dose: 2 mg Trazodone HCl (Trazodone) 200 mg PO BEDTIME [facility] Last Admin: 11/02/18 20:52 Dose: 200 mg Discontinued Medications Bupropion HCl (Wellbutrin Xl) 150 mg PO DAILY [facility] Last Admin: 10/31/18 08:48 Dose: 150 mg Enoxaparin Sodium (Lovenox) 40 mg SUBCUT Q24H [facility] Sodium Chloride (Normal Saline) 1,000 mls @ 150 mls/hr IV STAT ONE Stop: 10/31/18 00:13 Last Admin: 10/30/18 17:51 Dose: 150 mls/hr Trazodone HCl (Trazodone Hcl) 200 mg PO BEDTIME [facility] Last Admin: 10/30/18 21:49 Dose: Not Given Trazodone HCl (Trazodone) 200 mg PO BEDTIME [facility] Stop: 10/30/18 21:46 Last Admin: 10/30/18 21:46 Dose: 200 mg - Exam General: Alert, Oriented, Cooperative HEENT: Pupils Equal, Pupils Reactive Lungs: Clear to Auscultation, Normal Respiratory Effort Cardiovascular: Regular Rate, Regular Rhythm GI/Abdominal Exam: Normal Bowel Sounds, Soft, Non-Tender, No Distention Skin: Warm, Dry, Intact Neurological: No New Focal Deficit Psy/Mental Status: Alert, Depressed - Problem List Review Problem List Initiated/Reviewed/Updated: Yes - Plan Plan:: Assessment: 1. Ambulatory dysfunction with weakness and deconditioning- likely related to recent fall last week and recent hospital stay- Continue working with PT/OT. PT is working on transfers, strengthening, and bed mobility. Possible placement to [place] for rehab, discuss with CM on Sunday. 2. Depression- was evaluated by psych who increased Wellbutrin to 300 mg, continue tisperidol, zolofot, and trazadone. 3. Chronic conditions- DMII, HTN, urinary incontinence- continue home meds except for DMII accuchecks and sliding scale.
[2018-11-03] MEDS: traZODone 50 MG Tab PO SCH (20:54)
[2018-11-03] MEDS: risperiDONE 1 MG Tab PO SCH (20:54)
[2018-11-04 06:03] LABS: CARBON DIOXIDE,CO2 27.6 mmol/L (21.0-32.0); POTASSIUM,K 4.2 mmol/L (3.5-5.1)
[2018-11-04] MEDS: Insulin Aspart 100 Units/ML 3 ML Pen SUBCUT SCH ×3 (06:27→17:49)
[2018-11-04] MEDS: Enoxaparin 30 MG/0.3 ML Syringe SUBCUT SCH (06:47)
[2018-11-04] MEDS: Lisinopril 10 MG Tab PO SCH (09:04)
[2018-11-04] MEDS: Lisinopril/Hydrochlorothiazide 10-12.5 MG Tab PO SCH (09:04)
[2018-11-04] MEDS: buPROPion 150 MG Tab.ER PO SCH (09:05)
[2018-11-04] MEDS: Nystatin Topical Powder 15 GM Bottle TOP SCH ×2 (09:05→21:07)
[2018-11-04] MEDS: Sertraline 100 MG Tab PO SCH (09:06)
[2018-11-04] MEDS: Pioglitazone 15 MG Tab PO SCH (09:13)
--- NOTE | 2018-11-04 12:23 | PCM.PN ---
- General Info Date of Service: 11/04/18 Subjective Update: Patient seen at bedside: Endorsing chronic complaints of lower extremity weakness; however states it is getting stronger with daily physical therapy; understand she is waiting for alf placement. No other complaints at this time.; Functional Status: Reports: Pain Controlled - Review of Systems General: Reports: Weakness (in legs ) HEENT: Reports: No Symptoms Pulmonary: Reports: No Symptoms Cardiovascular: Reports: No Symptoms Gastrointestinal: Reports: No Symptoms Genitourinary: Reports: No Symptoms Neurological: Reports: No Symptoms - Patient Data Vitals - Most Recent: Last Vital Signs Temp 97.2 F 11/04/18 07:38 Pulse 82 11/04/18 07:38 Resp 18 11/04/18 07:38 BP 113/51 L 11/04/18 09:04 Pulse Ox 95 11/04/18 07:38 Weight - Most Recent: 198 lb 6.656 oz I&O - Last 24 Hours: Intake & Output 11/03/18 11/04/18 11/04/18 22:59 06:59 14:59 Intake Total 560 840 Output Total 300 350 Balance 260 490 Lab Results Last 24 Hours: Laboratory Results - last 24 hr 11/03/18 11/04/18 11/04/18 Range/Units 16:29 05:35 05:35 WBC 10.26 (4.0-11.0) K/uL RBC 4.24 L (4.30-5.90) M/uL Hgb 11.9 L (12.0-16.0) g/dL Hct 37.3 (36.0-46.0) % MCV 88.0 (80.0-98.0) fL MCH 28.1 (27.0-32.0) pg MCHC 31.9 (31.0-37.0) g/dL RDW Std Deviation 51.9 (28.0-62.0) fl RDW Coeff of Luz 16 H (11.0-15.0) % Plt Count 213 (150-400) K/uL MPV 9.80 (7.40-12.00) fL Neut % (Auto) 69.4 (48.0-80.0) % Lymph % (Auto) 23.4 (16.0-40.0) % Shannon % (Auto) 5.9 (0.0-15.0) % Eos % (Auto) 0.9 (0.0-7.0) % Baso % (Auto) 0.4 (0.0-1.5) % Neut # (Auto) 7.1 H (1.4-5.7) K/uL Lymph # (Auto) 2.4 (0.6-2.4) K/uL Shannon # (Auto) 0.6 (0.0-0.8) K/uL Eos # (Auto) 0.1 (0.0-0.7) K/uL Baso # (Auto) 0.0 (0.0-0.1) K/uL Nucleated RBC % 0.0 /100WBC Nucleated RBCs # 0 K/uL Sodium 140 (136-145) mmol/L Potassium 4.2 (3.5-5.1) mmol/L Chloride 104 (98-107) mmol/L Carbon Dioxide 27.6 (21.0-32.0) mmol/L BUN 25 H (7.0-18.0) mg/dL Creatinine 1.1 H (0.6-1.0) mg/dL Est Cr Clr Drug Dosing 36.62 mL/min Estimated GFR (MDRD) 49.8 ml/min Glucose 116 H (74-106) mg/dL POC Glucose 98 (60-110) mg/dL Calcium 10.0 (8.5-10.1) mg/dL 11/04/18 11/04/18 Range/Units 06:27 11:35 WBC (4.0-11.0) K/uL RBC (4.30-5.90) M/uL Hgb (12.0-16.0) g/dL Hct (36.0-46.0) % MCV (80.0-98.0) fL MCH (27.0-32.0) pg MCHC (31.0-37.0) g/dL RDW Std Deviation (28.0-62.0) fl RDW Coeff of Luz (11.0-15.0) % Plt Count (150-400) K/uL MPV (7.40-12.00) fL Neut % (Auto) (48.0-80.0) % Lymph % (Auto) (16.0-40.0) % Shannon % (Auto) (0.0-15.0) % Eos % (Auto) (0.0-7.0) % Baso % (Auto) (0.0-1.5) % Neut # (Auto) (1.4-5.7) K/uL Lymph # (Auto) (0.6-2.4) K/uL Shannon # (Auto) (0.0-0.8) K/uL Eos # (Auto) (0.0-0.7) K/uL Baso # (Auto) (0.0-0.1) K/uL Nucleated RBC % /100WBC Nucleated RBCs # K/uL Sodium (136-145) mmol/L Potassium (3.5-5.1) mmol/L Chloride (98-107) mmol/L Carbon Dioxide (21.0-32.0) mmol/L BUN (7.0-18.0) mg/dL Creatinine (0.6-1.0) mg/dL Est Cr Clr Drug Dosing mL/min Estimated GFR (MDRD) ml/min Glucose (74-106) mg/dL POC Glucose 108 129 H (60-110) mg/dL Calcium (8.5-10.1) mg/dL Jonny Results Last 24 Hours: Microbiology 10/31/18 06:13 Aerobic Blood Culture - Preliminary Blood NO GROWTH AFTER 4 DAYS Anaerobic Blood Culture - Preliminary NO GROWTH AFTER 4 DAYS Med Orders - Current: Current Medications Acetaminophen (Tylenol) 650 mg PO Q4H PRN PRN Reason: Fever Last Admin: 11/02/18 11:06 Dose: 650 mg Bupropion HCl (Wellbutrin Xl) 300 mg PO DAILY [facility] Last Admin: 11/04/18 09:05 Dose: 300 mg Docusate Sodium (Colace) 100 mg PO DAILY PRN PRN Reason: Constipation Enoxaparin Sodium (Lovenox) 30 mg SUBCUT Q24H [facility] Last Admin: 11/04/18 06:47 Dose: 30 mg Lisinopril/HCTZ (Lisinopril-Hctz 10-12.5 Mg) 1 tab PO DAILY [facility] Last Admin: 11/04/18 09:04 Dose: 1 tab Insulin Aspart (Novolog) 0 unit SUBCUT TIDAC [facility]; Protocol Last Admin: 11/04/18 12:01 Dose: Not Given Lisinopril (Prinivil) 10 mg PO DAILY [facility] Last Admin: 11/04/18 09:04 Dose: 10 mg Nystatin (Nystop) 0 gm TOP BID [facility] Last Admin: 11/04/18 09:05 Dose: 1 applic Pioglitazone HCl (Actos) 15 mg PO DAILY [facility] Last Admin: 11/04/18 09:13 Dose: 15 mg Risperidone (Risperidal) 2 mg PO BEDTIME [facility] Last Admin: 11/03/18 20:54 Dose: 2 mg Sertraline HCl (Zoloft) 150 mg PO DAILY [facility] Last Admin: 11/04/18 09:06 Dose: 150 mg Sodium Chloride (Saline Flush) 10 ml FLUSH ASDIRECTED PRN PRN Reason: Keep Vein Open Sodium Chloride (Saline Flush) 2.5 ml FLUSH ASDIRECTED PRN PRN Reason: Keep Vein Open Tolterodine Tartrate (Detrol) 2 mg PO BID [facility] Last Admin: 11/04/18 09:05 Dose: 2 mg Trazodone HCl (Trazodone) 200 mg PO BEDTIME [facility] Last Admin: 11/03/18 20:54 Dose: 200 mg Discontinued Medications Bupropion HCl (Wellbutrin Xl) 150 mg PO DAILY [facility] Last Admin: 10/31/18 08:48 Dose: 150 mg Enoxaparin Sodium (Lovenox) 40 mg SUBCUT Q24H [facility] Sodium Chloride (Normal Saline) 1,000 mls @ 150 mls/hr IV STAT ONE Stop: 10/31/18 00:13 Last Admin: 10/30/18 17:51 Dose: 150 mls/hr Trazodone HCl (Trazodone Hcl) 200 mg PO BEDTIME [facility] Last Admin: 10/30/18 21:49 Dose: Not Given Trazodone HCl (Trazodone) 200 mg PO BEDTIME [facility] Stop: 10/30/18 21:46 Last Admin: 10/30/18 21:46 Dose: 200 mg - Exam General: Alert, Oriented HEENT: Pupils Equal, EOMI Lungs: Clear to Auscultation, Normal Respiratory Effort Cardiovascular: Regular Rate, Regular Rhythm GI/Abdominal Exam: Soft, Non-Tender Extremities: Other (waling w/ physical therapy this AM w/ some assistance) Skin: Other (chronic healing wound over right arm ; healing well ) Neurological: Other (short steps w/ PT ) Psy/Mental Status: Alert, Depressed - Problem List & Annotations (1) Total self-care deficit SNOMED Code(s): 29967239 Code(s): R41.89 - OTH SYMPTOMS AND SIGNS W COGNITIVE FUNCTIONS AND AWARENESS Status: Acute Current Visit: Yes (2) Weakness SNOMED Code(s): 30632647 Code(s): R53.1 - WEAKNESS Status: Acute Current Visit: Yes (3) Morbid obesity with BMI of 40.0-44.9, adult SNOMED Code(s): 320886066, 66234056211905 Code(s): E66.01 - MORBID (SEVERE) OBESITY DUE TO EXCESS CALORIES; Z68.41 - BODY MASS INDEX (BMI) 40.0-44.9, ADULT Status: Chronic Priority: Medium Current Visit: No (4) Diabetes mellitus type 2 in obese SNOMED Code(s): 55300677 Code(s): E11.69 - TYPE 2 DIABETES MELLITUS WITH OTHER SPECIFIED COMPLICATION ; E66.9 - OBESITY, UNSPECIFIED Status: Chronic Priority: Medium Current Visit: No - Problem List Review Problem List Initiated/Reviewed/Updated: Yes - My Orders Last 24 Hours: My Active Orders 11/04/18 11:19 Communication Order [RC] PRN - Plan Plan:: Assessment: 1. Ambulatory dysfunction with weakness and deconditioning- likely related to recent fall last week and recent hospital stay- Continue working with PT/OT. PT is working on transfers, strengthening, and bed mobility. Possible placement to [place] for rehab, discuss with CM on Sunday. 2. Depression- was evaluated by psych who increased Wellbutrin to 300 mg, continue Risperidol, zolofot, and trazadone. 3. Chronic conditions- DMII, HTN, urinary incontinence- continue home meds except for DMII accuchecks and sliding scale.
[2018-11-04] MEDS: risperiDONE 1 MG Tab PO SCH (21:04)
[2018-11-04] MEDS: traZODone 50 MG Tab PO SCH (21:04)
[2018-11-05] MEDS: Enoxaparin 30 MG/0.3 ML Syringe SUBCUT SCH (06:33)
[2018-11-05] MEDS: Insulin Aspart 100 Units/ML 3 ML Pen SUBCUT SCH ×3 (07:29→17:45)
--- NOTE | 2018-11-05 08:43 | PCM.PN ---
- General Info Date of Service: 11/05/18 Subjective Update: Patient seen at bedside: There is no new complaints. Mentions lower extremity weakness is improving day by day with physical therapy; no other complaints at this time. Physical therapy daily. Functional Status: Reports: Pain Controlled - Review of Systems General: Reports: Weakness (in legs ; but feels stronger w/ PT ) Pulmonary: Reports: No Symptoms Cardiovascular: Reports: No Symptoms Gastrointestinal: Reports: No Symptoms Musculoskeletal: Reports: No Symptoms Neurological: Reports: No Symptoms - Patient Data Vitals - Most Recent: Last Vital Signs Temp 97.4 F 11/05/18 07:50 Pulse 76 11/05/18 07:50 Resp 16 11/05/18 07:50 BP 118/62 11/05/18 07:50 Pulse Ox 95 11/05/18 07:50 Weight - Most Recent: 198 lb 6.656 oz I&O - Last 24 Hours: Intake & Output 11/04/18 11/05/18 11/05/18 22:59 06:59 14:59 Intake Total 600 1000 Output Total 200 1100 Balance 400 -100 Lab Results Last 24 Hours: Laboratory Results - last 24 hr 11/04/18 11/04/18 11/05/18 Range/Units 11:35 17:47 06:23 POC Glucose 129 H 125 H 119 H (60-110) mg/dL Jonny Results Last 24 Hours: Microbiology 10/31/18 06:13 Aerobic Blood Culture - Final Blood NO GROWTH AFTER 5 DAYS Anaerobic Blood Culture - Final NO GROWTH AFTER 5 DAYS Med Orders - Current: Current Medications Acetaminophen (Tylenol) 650 mg PO Q4H PRN PRN Reason: Fever Last Admin: 11/02/18 11:06 Dose: 650 mg Bupropion HCl (Wellbutrin Xl) 300 mg PO DAILY [facility] Last Admin: 11/04/18 09:05 Dose: 300 mg Docusate Sodium (Colace) 100 mg PO DAILY PRN PRN Reason: Constipation Enoxaparin Sodium (Lovenox) 30 mg SUBCUT Q24H [facility] Last Admin: 11/05/18 06:33 Dose: 30 mg Lisinopril/HCTZ (Lisinopril-Hctz 10-12.5 Mg) 1 tab PO DAILY [facility] Last Admin: 11/04/18 09:04 Dose: 1 tab Insulin Aspart (Novolog) 0 unit SUBCUT TIDAC [facility]; Protocol Last Admin: 11/05/18 07:29 Dose: Not Given Lisinopril (Prinivil) 10 mg PO DAILY [facility] Last Admin: 11/04/18 09:04 Dose: 10 mg Nystatin (Nystop) 0 gm TOP BID [facility] Last Admin: 11/04/18 21:07 Dose: 1 applic Pioglitazone HCl (Actos) 15 mg PO DAILY [facility] Last Admin: 11/04/18 09:13 Dose: 15 mg Risperidone (Risperidal) 2 mg PO BEDTIME [facility] Last Admin: 11/04/18 21:04 Dose: 2 mg Sertraline HCl (Zoloft) 150 mg PO DAILY [facility] Last Admin: 11/04/18 09:06 Dose: 150 mg Sodium Chloride (Saline Flush) 10 ml FLUSH ASDIRECTED PRN PRN Reason: Keep Vein Open Sodium Chloride (Saline Flush) 2.5 ml FLUSH ASDIRECTED PRN PRN Reason: Keep Vein Open Tolterodine Tartrate (Detrol) 2 mg PO BID [facility] Last Admin: 11/04/18 21:04 Dose: 2 mg Trazodone HCl (Trazodone) 200 mg PO BEDTIME [facility] Last Admin: 11/04/18 21:04 Dose: 200 mg Discontinued Medications Bupropion HCl (Wellbutrin Xl) 150 mg PO DAILY [facility] Last Admin: 10/31/18 08:48 Dose: 150 mg Enoxaparin Sodium (Lovenox) 40 mg SUBCUT Q24H [facility] Sodium Chloride (Normal Saline) 1,000 mls @ 150 mls/hr IV STAT ONE Stop: 10/31/18 00:13 Last Admin: 10/30/18 17:51 Dose: 150 mls/hr Trazodone HCl (Trazodone Hcl) 200 mg PO BEDTIME [facility] Last Admin: 10/30/18 21:49 Dose: Not Given Trazodone HCl (Trazodone) 200 mg PO BEDTIME [facility] Stop: 10/30/18 21:46 Last Admin: 10/30/18 21:46 Dose: 200 mg - Exam General: Alert, Oriented HEENT: Pupils Equal, EOMI Lungs: Clear to Auscultation, Normal Respiratory Effort Cardiovascular: Regular Rate, Regular Rhythm GI/Abdominal Exam: Normal Bowel Sounds, Soft Extremities: Other (right arm chronic healing wound) Skin: Intact Psy/Mental Status: Alert, Normal Affect, Normal Mood, Other (somewhat flattened affect; gaurded responses) - Problem List & Annotations (1) Total self-care deficit SNOMED Code(s): 25569475 Code(s): R41.89 - OTH SYMPTOMS AND SIGNS W COGNITIVE FUNCTIONS AND AWARENESS Status: Acute Current Visit: Yes (2) Weakness SNOMED Code(s): 67590053 Code(s): R53.1 - WEAKNESS Status: Acute Current Visit: Yes (3) Morbid obesity with BMI of 40.0-44.9, adult SNOMED Code(s): 910453212, 88943973363103 Code(s): E66.01 - MORBID (SEVERE) OBESITY DUE TO EXCESS CALORIES; Z68.41 - BODY MASS INDEX (BMI) 40.0-44.9, ADULT Status: Chronic Priority: Medium Current Visit: No (4) Diabetes mellitus type 2 in obese SNOMED Code(s): 32736273 Code(s): E11.69 - TYPE 2 DIABETES MELLITUS WITH OTHER SPECIFIED COMPLICATION ; E66.9 - OBESITY, UNSPECIFIED Status: Chronic Priority: Medium Current Visit: No - Problem List Review Problem List Initiated/Reviewed/Updated: Yes - My Orders Last 24 Hours: My Active Orders 11/04/18 11:19 Communication Order [RC] PRN - Plan Plan:: Assessment: 1. Ambulatory dysfunction with weakness and deconditioning- likely related to recent fall last week and recent hospital stay- Continue working with PT/OT. PT is working on transfers, strengthening, and bed mobility. Possible placement to [place] for rehab, discuss with CM on progress of application 2. Depression- was evaluated by psych who increased Wellbutrin to 300 mg, continue Risperidol, zolofot, and trazadone. 3. Chronic conditions- DMII, HTN, urinary incontinence- continue home meds except for DMII accuchecks and sliding scale. 4. Chronic healing wound: continue w/ aquacel dressing daily 5. Will continue lab-draw holiday unless indicated
[2018-11-05] MEDS: Lisinopril 10 MG Tab PO SCH (09:30)
[2018-11-05] MEDS: Pioglitazone 15 MG Tab PO SCH (09:31)
[2018-11-05] MEDS: buPROPion 150 MG Tab.ER PO SCH (09:31)
[2018-11-05] MEDS: Sertraline 100 MG Tab PO SCH (09:32)
[2018-11-05] MEDS: Lisinopril/Hydrochlorothiazide 10-12.5 MG Tab PO SCH (09:32)
[2018-11-05] MEDS: Nystatin Topical Powder 15 GM Bottle TOP SCH ×2 (09:33→20:17)
[2018-11-05] MEDS: traZODone 50 MG Tab PO SCH (20:16)
[2018-11-05] MEDS: risperiDONE 1 MG Tab PO SCH (20:17)
[2018-11-06] MEDS: Enoxaparin 30 MG/0.3 ML Syringe SUBCUT SCH (06:42)
[2018-11-06] MEDS: Insulin Aspart 100 Units/ML 3 ML Pen SUBCUT SCH ×3 (06:43→18:23)
[2018-11-06] MEDS: Sertraline 100 MG Tab PO SCH (08:31)
[2018-11-06] MEDS: buPROPion 150 MG Tab.ER PO SCH (08:31)
[2018-11-06] MEDS: Lisinopril 10 MG Tab PO SCH (08:33)
[2018-11-06] MEDS: Lisinopril/Hydrochlorothiazide 10-12.5 MG Tab PO SCH (08:34)
[2018-11-06] MEDS: Pioglitazone 15 MG Tab PO SCH (08:39)
[2018-11-06] MEDS: Nystatin Topical Powder 15 GM Bottle TOP SCH ×2 (08:40→20:24)
--- NOTE | 2018-11-06 09:06 | PCM.PN ---
- General Info Date of Service: 11/06/18 Subjective Update: Patient seen at bedside; not endorsing any new complaints this AM. States she feels stronger; however still having some issues moving around in bed; but otherwise walking around well w/ assistance. - Review of Systems General: Reports: No Symptoms HEENT: Reports: No Symptoms Pulmonary: Reports: No Symptoms Cardiovascular: Reports: No Symptoms Gastrointestinal: Reports: No Symptoms Genitourinary: Reports: No Symptoms Musculoskeletal: Denies: Arm Pain Neurological: Reports: No Symptoms. Denies: Dizziness, Headache, Numbness Psychiatric: Denies: Confusion, Depression, Anxiety - Patient Data Vitals - Most Recent: Last Vital Signs Temp 97.1 F 11/06/18 07:45 Pulse 77 11/06/18 07:45 Resp 16 11/06/18 07:45 BP 122/57 L 11/06/18 08:33 Pulse Ox 94 L 11/06/18 07:45 Weight - Most Recent: 198 lb 6.656 oz I&O - Last 24 Hours: Intake & Output 11/05/18 11/06/18 11/06/18 22:59 06:59 14:59 Intake Total 960 790 Output Total 400 Balance 560 790 Lab Results Last 24 Hours: Laboratory Results - last 24 hr 11/05/18 11/05/18 11/06/18 Range/Units 11:23 16:34 06:39 POC Glucose 180 H 131 H 124 H (60-110) mg/dL Jonny Results Last 24 Hours: Microbiology 10/31/18 06:13 Aerobic Blood Culture - Final Blood NO GROWTH AFTER 5 DAYS Anaerobic Blood Culture - Final NO GROWTH AFTER 5 DAYS Med Orders - Current: Current Medications Acetaminophen (Tylenol) 650 mg PO Q4H PRN PRN Reason: Fever Last Admin: 11/02/18 11:06 Dose: 650 mg Bupropion HCl (Wellbutrin Xl) 300 mg PO DAILY [facility] Last Admin: 11/06/18 08:31 Dose: 300 mg Docusate Sodium (Colace) 100 mg PO DAILY PRN PRN Reason: Constipation Enoxaparin Sodium (Lovenox) 30 mg SUBCUT Q24H [facility] Last Admin: 11/06/18 06:42 Dose: 30 mg Lisinopril/HCTZ (Lisinopril-Hctz 10-12.5 Mg) 1 tab PO DAILY [facility] Last Admin: 11/06/18 08:34 Dose: 1 tab Insulin Aspart (Novolog) 0 unit SUBCUT TIDAC [facility]; Protocol Last Admin: 11/06/18 06:43 Dose: Not Given Lisinopril (Prinivil) 10 mg PO DAILY [facility] Last Admin: 11/06/18 08:33 Dose: 10 mg Nystatin (Nystop) 0 gm TOP BID [facility] Last Admin: 11/06/18 08:40 Dose: 1 applic Pioglitazone HCl (Actos) 15 mg PO DAILY [facility] Last Admin: 11/06/18 08:39 Dose: 15 mg Risperidone (Risperidal) 2 mg PO BEDTIME [facility] Last Admin: 11/05/18 20:17 Dose: 2 mg Sertraline HCl (Zoloft) 150 mg PO DAILY [facility] Last Admin: 11/06/18 08:31 Dose: 150 mg Sodium Chloride (Saline Flush) 10 ml FLUSH ASDIRECTED PRN PRN Reason: Keep Vein Open Sodium Chloride (Saline Flush) 2.5 ml FLUSH ASDIRECTED PRN PRN Reason: Keep Vein Open Tolterodine Tartrate (Detrol) 2 mg PO BID [facility] Last Admin: 11/06/18 08:34 Dose: 2 mg Trazodone HCl (Trazodone) 200 mg PO BEDTIME [facility] Last Admin: 11/05/18 20:16 Dose: 200 mg Discontinued Medications Bupropion HCl (Wellbutrin Xl) 150 mg PO DAILY [facility] Last Admin: 10/31/18 08:48 Dose: 150 mg Enoxaparin Sodium (Lovenox) 40 mg SUBCUT Q24H [facility] Sodium Chloride (Normal Saline) 1,000 mls @ 150 mls/hr IV STAT ONE Stop: 10/31/18 00:13 Last Admin: 10/30/18 17:51 Dose: 150 mls/hr Trazodone HCl (Trazodone Hcl) 200 mg PO BEDTIME [facility] Last Admin: 10/30/18 21:49 Dose: Not Given Trazodone HCl (Trazodone) 200 mg PO BEDTIME [facility] Stop: 10/30/18 21:46 Last Admin: 10/30/18 21:46 Dose: 200 mg - Exam General: Alert, Oriented, Cooperative, No Acute Distress HEENT: Pupils Reactive, EOMI, Mucous Membr. Moist/[place] Lungs: Clear to Auscultation, Normal Respiratory Effort Cardiovascular: Regular Rate, Regular Rhythm GI/Abdominal Exam: Soft, Non-Tender Skin: Warm, Intact, Other (right arm chronic healing wound w/ granulation tissue intact; no surrounding erythema; no obvious sign of infection appreciated. ) Neurological: No New Focal Deficit Psy/Mental Status: Alert (Flattended affect but smiles appropriately. ) - Problem List & Annotations (1) Total self-care deficit SNOMED Code(s): 40143467 Code(s): R41.89 - OTH SYMPTOMS AND SIGNS W COGNITIVE FUNCTIONS AND AWARENESS Status: Acute Current Visit: Yes (2) Weakness SNOMED Code(s): 31666542 Code(s): R53.1 - WEAKNESS Status: Acute Current Visit: Yes (3) Morbid obesity with BMI of 40.0-44.9, adult SNOMED Code(s): 094615500, 80123329563594 Code(s): E66.01 - MORBID (SEVERE) OBESITY DUE TO EXCESS CALORIES; Z68.41 - BODY MASS INDEX (BMI) 40.0-44.9, ADULT Status: Chronic Priority: Medium Current Visit: No (4) Diabetes mellitus type 2 in obese SNOMED Code(s): 54728734 Code(s): E11.69 - TYPE 2 DIABETES MELLITUS WITH OTHER SPECIFIED COMPLICATION ; E66.9 - OBESITY, UNSPECIFIED Status: Chronic Priority: Medium Current Visit: No - Problem List Review Problem List Initiated/Reviewed/Updated: Yes - Plan Plan:: Assessment: 1. Ambulatory dysfunction with weakness and deconditioning- likely related to recent fall last week and recent hospital stay- Continue working with PT/OT. PT is working on transfers, strengthening, and bed mobility. Possible placement to [place] for rehab, discuss with CM on progress of application 2. Depression- was evaluated by psych who increased Wellbutrin to 300 mg, continue Risperidol, zolofot, and trazadone. Appears stable 3. Chronic conditions- DMII, HTN, urinary incontinence- continue home meds except for DMII accuchecks and sliding scale. 4. Chronic healing wound: continue w/ enterostomal care recommendations. 5. Will continue lab-draw holiday unless indicated
[2018-11-06] MEDS: traZODone 50 MG Tab PO SCH (20:23)
[2018-11-06] MEDS: risperiDONE 1 MG Tab PO SCH (20:23)
[2018-11-07] MEDS: Enoxaparin 30 MG/0.3 ML Syringe SUBCUT SCH (06:51)
[2018-11-07] MEDS: Insulin Aspart 100 Units/ML 3 ML Pen SUBCUT SCH ×3 (06:51→17:18)
--- NOTE | 2018-11-07 08:44 | PCM.PN ---
- General Info Date of Service: 11/07/18 Subjective Update: Patient seen at bedside: no new complaints this morning. Understands she is waiting for placement for rehab and straightening. When asked about mobility in bed, states she feels weak at times; but is ok with walking. - Review of Systems General: Reports: No Symptoms HEENT: Reports: No Symptoms Pulmonary: Reports: No Symptoms Cardiovascular: Reports: No Symptoms Gastrointestinal: Reports: No Symptoms Psychiatric: Reports: No Symptoms - Patient Data Vitals - Most Recent: Last Vital Signs Temp 96.8 F 11/07/18 07:55 Pulse 74 11/07/18 07:55 Resp 16 11/07/18 07:55 BP 132/57 L 11/07/18 07:55 Pulse Ox 95 11/07/18 07:55 Weight - Most Recent: 198 lb 6.656 oz I&O - Last 24 Hours: Intake & Output 11/06/18 11/07/18 11/07/18 22:59 06:59 14:59 Intake Total 600 940 Output Total 979 Balance -379 940 Lab Results Last 24 Hours: Laboratory Results - last 24 hr 11/06/18 11/06/18 11/06/18 Range/Units 11:28 16:38 20:46 POC Glucose 141 H 83 114 H (60-110) mg/dL 11/07/18 Range/Units 06:38 POC Glucose 102 (60-110) mg/dL Med Orders - Current: Current Medications Acetaminophen (Tylenol) 650 mg PO Q4H PRN PRN Reason: Fever Last Admin: 11/02/18 11:06 Dose: 650 mg Bupropion HCl (Wellbutrin Xl) 300 mg PO DAILY [facility] Last Admin: 11/06/18 08:31 Dose: 300 mg Docusate Sodium (Colace) 100 mg PO DAILY PRN PRN Reason: Constipation Enoxaparin Sodium (Lovenox) 30 mg SUBCUT Q24H [facility] Last Admin: 11/07/18 06:51 Dose: 30 mg Lisinopril/HCTZ (Lisinopril-Hctz 10-12.5 Mg) 1 tab PO DAILY [facility] Last Admin: 11/06/18 08:34 Dose: 1 tab Insulin Aspart (Novolog) 0 unit SUBCUT TIDAC [facility]; Protocol Last Admin: 11/07/18 06:51 Dose: Not Given Lisinopril (Prinivil) 10 mg PO DAILY [facility] Last Admin: 11/06/18 08:33 Dose: 10 mg Nystatin (Nystop) 0 gm TOP BID [facility] Last Admin: 11/06/18 20:24 Dose: 1 applic Pioglitazone HCl (Actos) 15 mg PO DAILY [facility] Last Admin: 11/06/18 08:39 Dose: 15 mg Risperidone (Risperidal) 2 mg PO BEDTIME [facility] Last Admin: 11/06/18 20:23 Dose: 2 mg Sertraline HCl (Zoloft) 150 mg PO DAILY [facility] Last Admin: 11/06/18 08:31 Dose: 150 mg Sodium Chloride (Saline Flush) 10 ml FLUSH ASDIRECTED PRN PRN Reason: Keep Vein Open Sodium Chloride (Saline Flush) 2.5 ml FLUSH ASDIRECTED PRN PRN Reason: Keep Vein Open Tolterodine Tartrate (Detrol) 2 mg PO BID [facility] Last Admin: 11/06/18 20:23 Dose: 2 mg Trazodone HCl (Trazodone) 200 mg PO BEDTIME [facility] Last Admin: 11/06/18 20:23 Dose: 200 mg Discontinued Medications Bupropion HCl (Wellbutrin Xl) 150 mg PO DAILY [facility] Last Admin: 10/31/18 08:48 Dose: 150 mg Enoxaparin Sodium (Lovenox) 40 mg SUBCUT Q24H [facility] Sodium Chloride (Normal Saline) 1,000 mls @ 150 mls/hr IV STAT ONE Stop: 10/31/18 00:13 Last Admin: 10/30/18 17:51 Dose: 150 mls/hr Trazodone HCl (Trazodone Hcl) 200 mg PO BEDTIME [facility] Last Admin: 10/30/18 21:49 Dose: Not Given Trazodone HCl (Trazodone) 200 mg PO BEDTIME [facility] Stop: 10/30/18 21:46 Last Admin: 10/30/18 21:46 Dose: 200 mg - Exam General: Alert, Oriented HEENT: EOMI, Mucous Membr. Moist/[place] Neck: Supple Lungs: Clear to Auscultation, Normal Respiratory Effort Cardiovascular: Regular Rate, Regular Rhythm GI/Abdominal Exam: Soft, Non-Tender Back Exam: Full Range of Motion Extremities: Other (right forearm: healing wound; no obvious sign of infection; +granulation tissue w/o tenderness ) Psy/Mental Status: Alert, Normal Mood, Other (flattedned affect; smiles appropriately) - Problem List & Annotations (1) Total self-care deficit SNOMED Code(s): 66750551 Code(s): R41.89 - OTH SYMPTOMS AND SIGNS W COGNITIVE FUNCTIONS AND AWARENESS Status: Acute Current Visit: Yes (2) Weakness SNOMED Code(s): 44572872 Code(s): R53.1 - WEAKNESS Status: Acute Current Visit: Yes (3) Morbid obesity with BMI of 40.0-44.9, adult SNOMED Code(s): 011863927, 97677602757292 Code(s): E66.01 - MORBID (SEVERE) OBESITY DUE TO EXCESS CALORIES; Z68.41 - BODY MASS INDEX (BMI) 40.0-44.9, ADULT Status: Chronic Priority: Medium Current Visit: No (4) Diabetes mellitus type 2 in obese SNOMED Code(s): 29044797 Code(s): E11.69 - TYPE 2 DIABETES MELLITUS WITH OTHER SPECIFIED COMPLICATION ; E66.9 - OBESITY, UNSPECIFIED Status: Chronic Priority: Medium Current Visit: No - Problem List Review Problem List Initiated/Reviewed/Updated: Yes - Plan Plan:: Assessment: 1. Ambulatory dysfunction with weakness and deconditioning- Will contact Dr. Jimenez of Neurology for possible movement disorder: drug induced parkinsons vs organic etiology. Dysfunction also likely related to recent fall last week and recent hospital stay- Continue working with PT/OT. PT is working on transfers, strengthening, and bed mobility. [facility] has denied application; CM working on admission/application to [facility] 2. Depression- was evaluated by psych who increased Wellbutrin to 300 mg, continue Risperidol, zolofot, and trazadone. Appears stable 3. Chronic conditions- DMII, HTN, urinary incontinence- continue home meds except for DMII accuchecks and sliding scale. 4. Chronic healing wound: continue w/ enterostomal care recommendations. 5. Will continue lab-draw holiday unless indicated
[2018-11-07] MEDS: Nystatin Topical Powder 15 GM Bottle TOP SCH ×2 (09:08→23:05)
[2018-11-07] MEDS: Lisinopril 10 MG Tab PO SCH (09:12)
[2018-11-07] MEDS: Sertraline 100 MG Tab PO SCH (09:13)
[2018-11-07] MEDS: Lisinopril/Hydrochlorothiazide 10-12.5 MG Tab PO SCH (09:16)
[2018-11-07] MEDS: Pioglitazone 15 MG Tab PO SCH (09:17)
[2018-11-07] MEDS: buPROPion 150 MG Tab.ER PO SCH (09:17)
[2018-11-07] MEDS ORDERED: risperiDONE 1 MG Tab PO SCH (21:00)
[2018-11-07] MEDS: traZODone 50 MG Tab PO SCH (23:04)
--- NOTE | 2018-11-08 08:05 | PCM.CONS ---
H&P History of Present Illness - General Date of Service: 11/08/18 Admit Problem/Dx: falls Source of Information: Patient - History of Present Illness Initial Comments - Free Text/Narative: 63 year old woman hospitalized after falls, rhabdomyolysis, currently awaiting transfer to a facility for rehab. Neurology consulted to evaluate for Parkinson s disease. She endorses falls for 2 years. She falls either forwards or backwards. She did not answer questions about change in her gait. She endorses tremor in her hands. She doesnt know how long. She endorses headaches. No neck or back pain. No numbness or tingling. She did not answer questions about joint pain in her lower limbs. She has been on Risperdal for years not sure how long. She has chronic urinary incontinence. She did not answer questions about swallowing. She endorses difficulty with handwriting. - Related Data Allergies/Adverse Reactions: Allergies Allergy/AdvReac Type Severity Reaction Status Date / Time codeine Allergy Headache Verified 11/02/18 15:50 Penicillins Allergy Hives Verified 11/02/18 15:50 propoxyphene [From Darvon] Allergy Cannot Verified 11/02/18 15:50 Remember tetracycline Allergy Cannot Verified 11/02/18 15:50 Remember Home Medications: Home Meds Blood Sugar Diagnostic [Devtaptouch Ultra Blue Test Strp] 1 strip .ROUTE DAILY 11/06 [History] Calcium Carbonate/Vitamin D3 [Calcium 600 + Vit D Tablet] 1 tab PO BID 09/27/17 [History] Pioglitazone [Actos] 15 mg PO DAILY 09/27/17 [History] Sertraline [Zoloft] 150 mg PO DAILY 09/27/17 [History] atorvaSTATin [Lipitor] 10 mg PO BEDTIME 09/27/17 [History] traZODone HCl [Trazodone HCl] 200 mg PO BEDTIME 09/27/17 [History] Lisinopril/Hydrochlorothiazide [Lisinopril-Hctz 20-12.5 mg Tab] 1 tab PO DAILY 10/23/18 [History] Multivitamin [Multivitamins] 1 tab PO DAILY 10/24/18 [History] metroNIDAZOLE [Metrogel-Vaginal] 70 gm VG DAILY 10/24/18 [History] Tolterodine [Detrol] 2 mg PO BID #60 tablet 10/30/18 [Rx] Acetaminophen [Tylenol] 650 mg PO Q4H PRN tablet 11/08/18 [Rx] Docusate Sodium [Colace] 100 mg PO DAILY PRN cap 11/08/18 [Rx] Insulin Aspart [NovoLOG] 0 unit SUBCUT TIDAC pen 11/08/18 [Rx] buPROPion [buPROPion XL] 300 mg PO DAILY 10 Days #20 tab.er 11/08/18 [Rx] risperiDONE [RisperiDAL] 1 mg PO BEDTIME 10 Days #10 tablet 11/08/18 [Rx] Past Medical History HEENT History: Reports: Impaired Vision, Other (See Below) Other HEENT History: Wear eyeglasses Cardiovascular History: Reports: High Cholesterol, Hypertension Respiratory History: Reports: None Gastrointestinal History: Reports: None Genitourinary History: Reports: Urinary Incontinence [employer] History: Reports: Other OB/BYN History: x2 Musculoskeletal History: Reports: None Neurological History: Reports: None Psychiatric History: Reports: Anxiety, Depression, Mood Swings Endocrine/Metabolic History: Reports: Diabetes, Type II Hematologic History: Reports: None Immunologic History: Reports: None Oncologic (Cancer) History: Reports: None Dermatologic History: Reports: None - Infectious Disease History Infectious Disease History: Reports: Chicken Pox, Rubella - Past Surgical History Head Surgeries/Procedures: Reports: None Female Surgical History: Reports: Section Social & Family History - Family History Family Medical History: Noncontributory - Tobacco Use Smoking Status *Q: Never Smoker Second Hand Smoke Exposure: No - Caffeine Use Caffeine Use: Reports: None - Recreational Drug Use Recreational Drug Use: No - Living Situation & Occupation Living situation: Reports: , with Spouse Occupation: Retired H&P Review of Systems - Review of Systems: Review Of Systems: ROS reveals no pertinent complaints other than HPI. Exam - Exam Exam: See Below - Vital Signs Vital Signs: Last Vital Signs Temp 36.0 C 11/07/18 07:55 Pulse 74 11/07/18 07:55 Resp 16 11/07/18 07:55 BP 132/57 L 11/07/18 09:12 Pulse Ox 95 11/07/18 07:55 Weight: 90 kg - Exam Physical Exam Comments:: Constitutional: No acute distress Psychiatric: Mood/Affect: flat affect Neurological: Mental Status: General: Slow to answer or doesnt answer Level of consciousness: Awake, alert. Concentration/Attention Span: Normal. Comprehension/Praxis: Able to perform commands Language: Paucity of speech, no paraphasic error Cranial Nerves: Pupils equally round and reactive to light. Visual gaming full to confrontation. Gaze conjugate. Facial strength is full and symmetric. Palate elevates symmetrically. Normal shrug bilaterally. Tongue protrudes midline Motor: Normal tone in all groups. No drift. Power is 5/5 in proximal upper limbs, limited in distal and lower limbs Sensation: Sensation is intact to pinprick, vibratory sense Deep tendon reflexes: 2+ in upper limbs, reduced at knee and ankles Coordination: Finger to nose intact. Mild bradykinesia left upper limb Gait: Walks with walker, steady, narrow based, slight bilateral trendelenberg HEENT: Eyes: non icteric, Mouth: moist mucus membranes Cardiovascular: RRR, no obvious murmur Respiratory: clear lungs GI: non tender Musculoskeletal: non tender Skin: Large healing lacerations, erythematous plaque dorsal forearm - Patient Data Lab Results Last 24 hrs: Laboratory Results - last 24 hr 11/07/18 11/07/18 11/08/18 Range/Units 11:48 16:17 06:43 POC Glucose 126 H 111 H 90 (60-110) mg/dL Result Diagrams: 11/04/18 05:35 11/04/18 05:35 Imaging Impressions Last 24 hrs: CT head 10/22/2018 - diffuse atrophy, prominent frontal atrophy Consult PN Assessment/Plan Procedures: Procedures ASSAY OF CK (CPK) (10/23/18) ASSAY OF LACTIC ACID (10/23/18) ASSAY OF LIPASE (10/23/18) ASSAY OF MAGNESIUM (10/23/18) ASSAY OF TROPONIN QUANT (10/23/18) BLOOD CULTURE FOR BACTERIA (10/23/18) COMPLETE CBC W/AUTO DIFF WBC (10/23/18) COMPREHEN METABOLIC PANEL (10/23/18) CONTRAST X-RAY ESOPHAGUS (10/16/17) CT HEAD/BRAIN W/O DYE (10/23/18) CT SOFT TISSUE NECK W/DYE (09/27/17) CT THORAX W/DYE (09/27/17) CULTURE AEROBIC IDENTIFY (10/23/18) ELECTROCARDIOGRAM TRACING (10/23/18) EMERGENCY DEPT VISIT (10/23/18) EMERGENCY DEPT VISIT (09/27/17) GAIT TRAINING THERAPY (10/23/18) GLUCOSE BLOOD TEST (10/23/18) HYDRATE IV INFUSION ADD-ON (10/23/18) LACTATE (LD) (LDH) ENZYME (10/23/18) METABOLIC PANEL TOTAL CA (10/23/18) MICROBE SUSCEPTIBLE EFREM (10/23/18) MRI LUMBAR SPINE W/O DYE (01/12/15) PROTHROMBIN TIME (09/27/17) PT EVAL LOW COMPLEX 20 MIN (10/23/18) RMVL DEVITAL TIS 20 CM/< (10/23/18) RMVL DEVITAL TIS ADDL 20CM/< (10/23/18) ROUTINE VENIPUNCTURE (10/23/18) THER/PROPH/DIAG IV INF ADDON (10/23/18) THER/PROPH/DIAG IV INF INIT (10/23/18) THERAPEUTIC ACTIVITIES (10/23/18) URINALYSIS AUTO W/SCOPE (10/23/18) URINE BACTERIA CULTURE (10/23/18) URINE CULTURE/COLONY COUNT (10/23/18) X-RAY EXAM CHEST 1 VIEW (10/23/18) X-RAY EXAM L-2 SPINE 4/>VWS (07/05/15) X-RAY EXAM OF FOREARM (10/23/18) X-RAY EXAM OF HAND (10/23/18) X-RAY EXAM OF PELVIS (10/23/18) (1) Falls frequently SNOMED Code(s): 211953858 Code(s): R29.6 - REPEATED FALLS Current Visit: Yes Assessment:: Falls, impaired gait, likely multifactorial including deconditioning. There are subtle signs of parkinsonism, possibly antipsychotic induced. Rec: Follow up with psychiatry regarding medication. Attempt to reduce / change Risperdal may be considered and/or adding benztropine I can see her in clinic in a couple months after she has worked with rehab. Problem List Initiated/Reviewed/Updated: Yes
[2018-11-08] MEDS: Insulin Aspart 100 Units/ML 3 ML Pen SUBCUT SCH (08:19)
[2018-11-08] MEDS: Enoxaparin 30 MG/0.3 ML Syringe SUBCUT SCH (08:20)
[2018-11-08] MEDS: Sertraline 100 MG Tab PO SCH (08:21)
[2018-11-08] MEDS: Pioglitazone 15 MG Tab PO SCH (08:23)
[2018-11-08] MEDS: buPROPion 150 MG Tab.ER PO SCH (08:23)
[2018-11-08] MEDS: Nystatin Topical Powder 15 GM Bottle TOP SCH (08:24)
[2018-11-08] MEDS: Lisinopril 10 MG Tab PO SCH (08:30)
[2018-11-08] MEDS: Lisinopril/Hydrochlorothiazide 10-12.5 MG Tab PO SCH (08:30)
--- NOTE | 2018-11-08 19:05 | PCM.DCSUM1 ---
<May Rodriguez - Last Filed: 11/08/18 18:50> Discharge Summary - Hospital Course Free Text/Narrative:: Discharge summary Admission date 10/30/2018 Discharge date 11/08/2018 Admission diagnoses: Ambulatory dysfunction secondary to weakness with unknown etiology Recent history of fall with unknown etiology with resulting in rhabdomyolysis Recent history of urinary tract infection Past medical history of diabetes osteoarthritis depression anxiety and flattened affect Discharge diagnoses: Ambulatory dysfunction secondary to multifactorial causes including drug- induced Parkinson's versus deconditioning versus recent fall Rhabdomyolysis: resolved Past medical history of diabetes, osteoarthritis depression and anxiety inflammable affect Consultations: Dr. Jimenze neurology Dr. Luna of psychiatry Procedures: none Hospital course: patient is a 63-year-old female with concerns of ambulatory dysfunction; presented 2 hours after discharge secondary to a fall: patient was walking from her car to the threshold of her house and tripped and fell; was unable to lift her up secondary to his own shoulder issues. She was brought back to [facility] and admitted for ambulatory dysfunction. Over the course of stay, patient was stable however concerns about drug-induced parkinsonian reaction was investigated; Dr. Jimenez neurology was consulted and recommended talking to psychiatry; Dr. Luna and psychiatry recommended going down on Risperdal dose by 1 mg. Physical therapy has been working with her throughout her entire stay with increasing strengthening and improvement of ambulation. Physical therapy states patient did have some problems moving around in bed and getting out of bed however was able to ambulate without full assistance. Concerns about shuffling gait and flat affect are brought up by physical therapy. No other change to regimen was made throughout her stay. Patient was stable; and able to ambulate on her own volition with a 4.point walker. Last 4 days of stay patient was given a lab holiday secondary to no acute concerns. Patient transferred to [facility] in [place]. Discharge condition: Stable Disposition: [facility]/[place], [place] - Discharge Data Discharge Date: 11/08/18 Discharge Disposition: DC/Tfer W/I Hosp To [place] [id number] Condition: Good - Referral to Home Health Primary Care Physician: PCP None - Discharge Diagnosis/Problem(s) (1) Total self-care deficit SNOMED Code(s): 14575927 ICD Code: R41.89 - OTH SYMPTOMS AND SIGNS W COGNITIVE FUNCTIONS AND AWARENESS Status: Acute (2) Weakness SNOMED Code(s): 64934784 ICD Code: R53.1 - WEAKNESS Status: Acute (3) Morbid obesity with BMI of 40.0-44.9, adult SNOMED Code(s): 093090682, 63921115796660 ICD Code: E66.01 - MORBID (SEVERE) OBESITY DUE TO EXCESS CALORIES; Z68.41 - BODY MASS INDEX (BMI) 40.0-44.9, ADULT Status: Chronic Priority: Medium (4) Diabetes mellitus type 2 in obese SNOMED Code(s): 13977762 ICD Code: E11.69 - TYPE 2 DIABETES MELLITUS WITH OTHER SPECIFIED COMPLICATION ; E66.9 - OBESITY, UNSPECIFIED Status: Chronic Priority: Medium - Patient Summary/Data Consults: Consultations 10/30/18 18:53 Consult to Physical Therapy [PT Evaluation and Treatment] [CONS] Routine 10/30/18 18:54 Consult to Occupational Therapy [OT Evaluation and Treatment] [CONS] Routine 10/31/18 09:35 Consult to Spiritual Care [CONS] Routine 10/31/18 17:28 Consult to Physician [CONS] Routine - Patient Instructions Diet: Diabetic Diet Driving: Do Not Drive Showering/Bathing: May Shower Wound/Incision Care: Keep Operative Site/Wound Site Clean and Dry Notify Provider of: Fever, Increased Pain, Swelling and Redness, Drainage, Nausea and/or Vomiting Other/Special Instructions: Advised to notify [facility] if symptoms of fever, chills , body aches, hallucinations, new symptoms against baseline, or discharge from the arm. - Discharge Plan *PRESCRIPTION DRUG MONITORING PROGRAM REVIEWED*: No *COPY OF PRESCRIPTION DRUG MONITORING REPORT IN PATIENT FRED: No Prescriptions/Med Rec: buPROPion [buPROPion XL] 300 mg PO DAILY 10 Days #20 tab.er risperiDONE [RisperiDAL] 1 mg PO BEDTIME 10 Days #10 tablet Home Medications: Home Meds Blood Sugar Diagnostic [HMT Technologytouch Ultra Blue Test Strp] 1 strip .ROUTE DAILY 11/06 [History] Calcium Carbonate/Vitamin D3 [Calcium 600 + Vit D Tablet] 1 tab PO BID 09/27/17 [History] Pioglitazone [Actos] 15 mg PO DAILY 09/27/17 [History] Sertraline [Zoloft] 150 mg PO DAILY 09/27/17 [History] atorvaSTATin [Lipitor] 10 mg PO BEDTIME 09/27/17 [History] traZODone HCl [Trazodone HCl] 200 mg PO BEDTIME 09/27/17 [History] Lisinopril/Hydrochlorothiazide [Lisinopril-Hctz 20-12.5 mg Tab] 1 tab PO DAILY 10/23/18 [History] Multivitamin [Multivitamins] 1 tab PO DAILY 10/24/18 [History] metroNIDAZOLE [Metrogel-Vaginal] 70 gm VG DAILY 10/24/18 [History] Tolterodine [Detrol] 2 mg PO BID #60 tablet 10/30/18 [Rx] Acetaminophen [Tylenol] 650 mg PO Q4H PRN tablet 11/08/18 [Rx] Docusate Sodium [Colace] 100 mg PO DAILY PRN cap 11/08/18 [Rx] Insulin Aspart [NovoLOG] 0 unit SUBCUT TIDAC pen 11/08/18 [Rx] buPROPion [buPROPion XL] 300 mg PO DAILY 10 Days #20 tab.er 11/08/18 [Rx] risperiDONE [RisperiDAL] 1 mg PO BEDTIME 10 Days #10 tablet 11/08/18 [Rx] Oxygen Therapy Mode: Room Air Referrals: Gilles Johnson MD [Physician] - - Discharge Summary/Plan Comment DC Time >30 min.: No - Patient Data Vitals - Most Recent: Last Vital Signs Temp 96.2 F 11/08/18 07:00 Pulse 86 11/08/18 07:00 Resp 16 11/08/18 07:00 BP 91/56 L 11/08/18 08:30 Pulse Ox 93 L 11/08/18 07:00 Weight - Most Recent: 90 kg I&O - Last 24 hours: Intake & Output 11/08/18 11/08/18 11/08/18 06:59 14:59 22:59 Intake Total 640 300 Output Total 1439 Balance 640 -1139 Lab Results - Last 24 hrs: Laboratory Results - last 24 hr 11/08/18 Range/Units 06:43 POC Glucose 90 (60-110) mg/dL Med Orders - Current: Current Medications Discontinued Medications Acetaminophen (Tylenol) 650 mg PO Q4H PRN PRN Reason: Fever Last Admin: 11/02/18 11:06 Dose: 650 mg Bupropion HCl (Wellbutrin Xl) 150 mg PO DAILY ERIK Last Admin: 10/31/18 08:48 Dose: 150 mg Bupropion HCl (Wellbutrin Xl) 300 mg PO DAILY [facility] Last Admin: 11/08/18 08:23 Dose: 300 mg Docusate Sodium (Colace) 100 mg PO DAILY PRN PRN Reason: Constipation Enoxaparin Sodium (Lovenox) 40 mg SUBCUT Q24H ERIK Enoxaparin Sodium (Lovenox) 30 mg SUBCUT Q24H [facility] Last Admin: 11/08/18 08:20 Dose: 30 mg Lisinopril/HCTZ (Lisinopril-Hctz 10-12.5 Mg) 1 tab PO DAILY [facility] Last Admin: 11/08/18 08:30 Dose: Not Given Sodium Chloride (Normal Saline) 1,000 mls @ 150 mls/hr IV STAT ONE Stop: 10/31/18 00:13 Last Admin: 10/30/18 17:51 Dose: 150 mls/hr Insulin Aspart (Novolog) 0 unit SUBCUT TIDAC [facility]; Protocol Last Admin: 11/08/18 08:19 Dose: Not Given Lisinopril (Prinivil) 10 mg PO DAILY [facility] Last Admin: 11/08/18 08:30 Dose: Not Given Nystatin (Nystop) 0 gm TOP BID [facility] Last Admin: 11/08/18 08:24 Dose: 1 applic Pioglitazone HCl (Actos) 15 mg PO DAILY [facility] Last Admin: 11/08/18 08:23 Dose: 15 mg Risperidone (Risperidal) 2 mg PO BEDTIME [facility] Last Admin: 11/06/18 20:23 Dose: 2 mg Risperidone (Risperidal) 1 mg PO BEDTIME [facility] Last Admin: 11/07/18 23:05 Dose: 1 mg Sertraline HCl (Zoloft) 150 mg PO DAILY [facility] Last Admin: 11/08/18 08:21 Dose: 150 mg Sodium Chloride (Saline Flush) 10 ml FLUSH ASDIRECTED PRN PRN Reason: Keep Vein Open Sodium Chloride (Saline Flush) 2.5 ml FLUSH ASDIRECTED PRN PRN Reason: Keep Vein Open Tolterodine Tartrate (Detrol) 2 mg PO BID [facility] Last Admin: 11/08/18 08:21 Dose: 2 mg Trazodone HCl (Trazodone Hcl) 200 mg PO BEDTIME [facility] Last Admin: 10/30/18 21:49 Dose: Not Given Trazodone HCl (Trazodone) 200 mg PO BEDTIME [facility] Last Admin: 11/07/18 23:04 Dose: 200 mg Trazodone HCl (Trazodone) 200 mg PO BEDTIME [facility] Stop: 10/30/18 21:46 Last Admin: 10/30/18 21:46 Dose: 200 mg <David Vazquez J - Last Filed: 11/10/18 19:30> Discharge Summary - Referral to Home Health Primary Care Physician: PCP None - Patient Summary/Data Consults: Consultations 10/30/18 18:53 Consult to Physical Therapy [PT Evaluation and Treatment] [CONS] Routine 10/30/18 18:54 Consult to Occupational Therapy [OT Evaluation and Treatment] [CONS] Routine 10/31/18 09:35 Consult to Spiritual Care [CONS] Routine 10/31/18 17:28 Consult to Physician [CONS] Routine - Patient Data Vitals - Most Recent: Last Vital Signs Temp 35.7 C 11/08/18 07:00 Pulse 86 11/08/18 07:00 Resp 16 11/08/18 07:00 BP 91/56 L 11/08/18 08:30 Pulse Ox 93 L 11/08/18 07:00 Med Orders - Current: Current Medications Discontinued Medications Acetaminophen (Tylenol) 650 mg PO Q4H PRN PRN Reason: Fever Last Admin: 11/02/18 11:06 Dose: 650 mg Bupropion HCl (Wellbutrin Xl) 150 mg PO DAILY [facility] Last Admin: 10/31/18 08:48 Dose: 150 mg Bupropion HCl (Wellbutrin Xl) 300 mg PO DAILY [facility] Last Admin: 11/08/18 08:23 Dose: 300 mg Docusate Sodium (Colace) 100 mg PO DAILY PRN PRN Reason: Constipation Enoxaparin Sodium (Lovenox) 40 mg SUBCUT Q24H ERIK Enoxaparin Sodium (Lovenox) 30 mg SUBCUT Q24H [facility] Last Admin: 11/08/18 08:20 Dose: 30 mg Lisinopril/HCTZ (Lisinopril-Hctz 10-12.5 Mg) 1 tab PO DAILY [facility] Last Admin: 11/08/18 08:30 Dose: Not Given Sodium Chloride (Normal Saline) 1,000 mls @ 150 mls/hr IV STAT ONE Stop: 10/31/18 00:13 Last Admin: 10/30/18 17:51 Dose: 150 mls/hr Insulin Aspart (Novolog) 0 unit SUBCUT TIDAC [facility]; Protocol Last Admin: 11/08/18 08:19 Dose: Not Given Lisinopril (Prinivil) 10 mg PO DAILY [facility] Last Admin: 11/08/18 08:30 Dose: Not Given Nystatin (Nystop) 0 gm TOP BID [facility] Last Admin: 11/08/18 08:24 Dose: 1 applic Pioglitazone HCl (Actos) 15 mg PO DAILY [facility] Last Admin: 11/08/18 08:23 Dose: 15 mg Risperidone (Risperidal) 2 mg PO BEDTIME [facility] Last Admin: 11/06/18 20:23 Dose: 2 mg Risperidone (Risperidal) 1 mg PO BEDTIME [facility] Last Admin: 11/07/18 23:05 Dose: 1 mg Sertraline HCl (Zoloft) 150 mg PO DAILY [facility] Last Admin: 11/08/18 08:21 Dose: 150 mg Sodium Chloride (Saline Flush) 10 ml FLUSH ASDIRECTED PRN PRN Reason: Keep Vein Open Sodium Chloride (Saline Flush) 2.5 ml FLUSH ASDIRECTED PRN PRN Reason: Keep Vein Open Tolterodine Tartrate (Detrol) 2 mg PO BID [facility] Last Admin: 11/08/18 08:21 Dose: 2 mg Trazodone HCl (Trazodone Hcl) 200 mg PO BEDTIME [facility] Last Admin: 10/30/18 21:49 Dose: Not Given Trazodone HCl (Trazodone) 200 mg PO BEDTIME [facility] Last Admin: 11/07/18 23:04 Dose: 200 mg Trazodone HCl (Trazodone) 200 mg PO BEDTIME [facility] Stop: 10/30/18 21:46 Last Admin: 10/30/18 21:46 Dose: 200 mg - Free Text/Narrative Note: I have seen and evaluated the patient with the resident. I have discussed findings and treatment plan with the resident. I agree with the assessment and plan outlined in the following note.
== END 2018-11-08 10:45 | disposition swing bed (61) | DRG 948 ==
LOC: MW.ED 17:14 → MW.MS 17:28 → OBSVTOIN 10-31 07:04
PROVIDERS: ADMIT Internal Medicine; ATTEND Internal Medicine
DX: Z74.2 Need for assistance at home and no other household member able to render care (principal); R53.1 Weakness; Z68.41 Body mass index [BMI] 40.0-44.9, adult; H54.7 Unspecified visual loss; T50.905A Adverse effect of unspecified drugs, medicaments and biological substances, initial encounter; Z88.8 Allergy status to other drugs, medicaments and biological substances; E78.00 Pure hypercholesterolemia, unspecified; I10 Essential (primary) hypertension; F41.9 Anxiety disorder, unspecified; R32 Unspecified urinary incontinence; F32.9 Major depressive disorder, single episode, unspecified; E11.9 Type 2 diabetes mellitus without complications; E11.69 Type 2 diabetes mellitus with other specified complication; R41.89 Other symptoms and signs involving cognitive functions and awareness; G20 Parkinson's disease; E66.01 Morbid (severe) obesity due to excess calories; F25.9 Schizoaffective disorder, unspecified; R29.6 Repeated falls; Z88.5 Allergy status to narcotic agent; Z79.899 Other long term (current) drug therapy; Z88.0 Allergy status to penicillin; Z88.1 Allergy status to other antibiotic agents
CPT/HCPCS: 36415; 80048; 81001; 82962; 85025; 87040; 96360; 96361; 99285; A9270 ×4; G0378 ×2; J7040; 93005; 97110-GP; 97116-GP; 97161-GP; 97530-GP; 99284; J1650; J1815-GY

== ENCOUNTER 2024-09-01 15:46 | Inpatient (IN) | payer MEDICARE, OTHER ==
[2024-09-01 18:24] LABS: BASOPHILS ABSOLUTE AUTO 0.02 K/uL (0.00-0.20); BASOPHILS PERCENT AUTO 0.2 % (0.0-1.0); EOSINOPHILS ABSOLUTE AUTO 0.00 K/uL (0.00-0.45); EOSINOPHILS PERCENT AUTO 0.0 % (0.0-6.0); IMMATURE GRAN ABSOLUTE AUTO 0.07 K/uL (0.00-0.05); IMMATURE GRAN PERCENT AUTO 0.5 % (0.0-0.4); LYMPHOCYTES ABSOLUTE AUTO 0.46 K/uL (1.00-4.80); LYMPHOCYTES PERCENT AUTO 3.5 % (24.0-44.0); MEAN PLATELET VOLUME 9.8 fL (9.4-12.3); MONOCYTES ABSOLUTE AUTO 0.75 K/uL (0.00-0.80); MONOCYTES PERCENT AUTO 5.8 % (0.0-8.0); NEUTROPHILS ABSOLUTE AUTO 11.74 K/uL (1.80-7.70); NEUTROPHILS PERCENT AUTO 90.0 % (41.0-71.0); NRBC ABSOLUTE 0.00 K/uL (0.00-0.02); NRBC PERCENT 0.0 /100WBC (0.0-0.2); PLATELET COUNT,PLT 245 K/uL (150-400); RED BLOOD CELL COUNT 4.47 M/uL (4.10-5.30); WHITE BLOOD CELL COUNT,WBC 13.04 K/uL (3.9-11.3)
[2024-09-01 18:42] LABS: INR 1.08 (0.86-1.11); PTT,PARTIAL THROMBOPLSTIN TIME 27.1 SEC (23.9-30.7)
[2024-09-01 18:54] LABS: A/G RATIO 1.1 (0.9-1.6); ALANINE AMINOTRANSFERASE,ALT 33.0 IU/L (14-63); ASPARTATE AMNIOTRANSFERASE,AST 41.0 IU/L (15-37); BILIRUBIN TOTAL 0.7 mg/dL (0.2-1.0); BLOOD UREA NITROGEN,BUN 55.0 mg/dL (7.0-18.0); CARBON DIOXIDE,CO2 31.0 mmol/L (21.0-32.0); CHLORIDE,CL 100.0 mmol/L (98-107); CREATININE 1.5 mg/dL (0.6-1.0); EST CRCL DRUG DOSING (CG) 24.71 mL/min; ESTIMATED GFR 37.0 mL/min (>60); GLUCOSE RANDOM 158.0 mg/dL (74-106); POTASSIUM,K 2.8 mmol/L (3.5-5.1); PRO B-TYPE NATRIUR PEPT,BNPPRO 1343.0 pg/mL (0-125); PROTEIN TOTAL,TP 7.0 g/dL (6.4-8.2); SODIUM,NA 142.0 mmol/L (136-145)
[2024-09-01] MEDS: Potassium Chloride 10% 20 MEQ/15 ML Soln 15 ML UD Cup PO ONE (21:28)
[2024-09-01 23:17] LABS: GLUCOSE,URINE NEGATIVE (NEGATIVE); OCCULT BLOOD,URINE SMALL (NEGATIVE)
[2024-09-01 23:23] LABS: APPEARANCE,URINE SLT CLOUDY
[2024-09-01 23:24] LABS: EPITHELIAL CELLS,URINE OCCASIONAL (NONE-FEW)
[2024-09-02] MEDS: cefTRIAXone 1 GM in Water For Injection, Sterile 10 ML IVPUSH ONE (02:35)
[2024-09-02] MEDS ORDERED: 50% Dextrose in Water 50 ML Syringe IVPUSH PRN (02:40)
[2024-09-02 05:26] LABS: BASOPHILS ABSOLUTE AUTO 0.02 K/uL (0.00-0.20); BASOPHILS PERCENT AUTO 0.2 % (0.0-1.0); EOSINOPHILS ABSOLUTE AUTO 0.00 K/uL (0.00-0.45); EOSINOPHILS PERCENT AUTO 0.0 % (0.0-6.0); IMMATURE GRAN ABSOLUTE AUTO 0.06 K/uL (0.00-0.05); IMMATURE GRAN PERCENT AUTO 0.7 % (0.0-0.4); LYMPHOCYTES ABSOLUTE AUTO 0.73 K/uL (1.00-4.80); LYMPHOCYTES PERCENT AUTO 8.8 % (24.0-44.0); MEAN PLATELET VOLUME 10.0 fL (9.4-12.3); MONOCYTES ABSOLUTE AUTO 0.57 K/uL (0.00-0.80); MONOCYTES PERCENT AUTO 6.8 % (0.0-8.0); NEUTROPHILS ABSOLUTE AUTO 6.96 K/uL (1.80-7.70); NEUTROPHILS PERCENT AUTO 83.5 % (41.0-71.0); NRBC ABSOLUTE 0.00 K/uL (0.00-0.02); NRBC PERCENT 0.0 /100WBC (0.0-0.2); PLATELET COUNT,PLT 208 K/uL (150-400); RED BLOOD CELL COUNT 4.10 M/uL (4.10-5.30); WHITE BLOOD CELL COUNT,WBC 8.34 K/uL (3.9-11.3)
[2024-09-02 05:50] LABS: BLOOD UREA NITROGEN,BUN 34.0 mg/dL (7.0-18.0); CARBON DIOXIDE,CO2 31.4 mmol/L (21.0-32.0); CHLORIDE,CL 105.0 mmol/L (98-107); CREATINE KINASE,CK 283.0 U/L (26-308); CREATININE 0.9 mg/dL (0.6-1.0); EST CRCL DRUG DOSING (CG) 41.18 mL/min; GLUCOSE RANDOM 135.0 mg/dL (74-106); POTASSIUM,K 2.6 mmol/L (3.5-5.1); SODIUM,NA 144.0 mmol/L (136-145)
[2024-09-02 05:59] LABS: ESTIMATED GFR 68.0 mL/min (>60)
[2024-09-02] MEDS: Potassium Chloride 20 MEQ Tab.ER PO ONE (07:58)
[2024-09-02] MEDS ORDERED: Naloxone 0.4 MG/ML SDV IVPUSH PRN (08:44)
[2024-09-03] MEDS: cefTRIAXone 1 GM in Water For Injection, Sterile 10 ML IVPUSH SCH (03:41)
[2024-09-03 05:31] LABS: BASOPHILS ABSOLUTE AUTO 0.04 K/uL (0.00-0.20); BASOPHILS PERCENT AUTO 0.5 % (0.0-1.0); EOSINOPHILS ABSOLUTE AUTO 0.01 K/uL (0.00-0.45); EOSINOPHILS PERCENT AUTO 0.1 % (0.0-6.0); IMMATURE GRAN ABSOLUTE AUTO 0.07 K/uL (0.00-0.05); IMMATURE GRAN PERCENT AUTO 0.8 % (0.0-0.4); LYMPHOCYTES ABSOLUTE AUTO 1.02 K/uL (1.00-4.80); LYMPHOCYTES PERCENT AUTO 11.9 % (24.0-44.0); MEAN PLATELET VOLUME 10.2 fL (9.4-12.3); MONOCYTES ABSOLUTE AUTO 0.55 K/uL (0.00-0.80); MONOCYTES PERCENT AUTO 6.4 % (0.0-8.0); NEUTROPHILS ABSOLUTE AUTO 6.89 K/uL (1.80-7.70); NEUTROPHILS PERCENT AUTO 80.3 % (41.0-71.0); NRBC ABSOLUTE 0.00 K/uL (0.00-0.02); NRBC PERCENT 0.0 /100WBC (0.0-0.2); PLATELET COUNT,PLT 204 K/uL (150-400); RED BLOOD CELL COUNT 4.14 M/uL (4.10-5.30); WHITE BLOOD CELL COUNT,WBC 8.58 K/uL (3.9-11.3)
[2024-09-03 05:47] LABS: BLOOD UREA NITROGEN,BUN 20.0 mg/dL (7.0-18.0); CARBON DIOXIDE,CO2 30.1 mmol/L (21.0-32.0); CHLORIDE,CL 103.0 mmol/L (98-107); CREATININE 0.7 mg/dL (0.6-1.0); EST CRCL DRUG DOSING (CG) 52.95 mL/min; GLUCOSE RANDOM 116.0 mg/dL (74-106); POTASSIUM,K 3.6 mmol/L (3.5-5.1); SODIUM,NA 137.0 mmol/L (136-145)
[2024-09-03 05:49] LABS: ESTIMATED GFR 92.0 mL/min (>60)
[2024-09-03] MEDS: Magnesium Sulfate 2 GM/50 mL 2 GM in Premix Bag 1 BAG IV ONE (08:35)
[2024-09-03] MEDS: Potassium Chloride 20 MEQ Tab.ER PO ONE (09:03)
[2024-09-03] MEDS ORDERED: Potassium Chloride 20 MEQ Tab.ER PO ONE (09:58)
[2024-09-04 06:25] LABS: BASOPHILS ABSOLUTE AUTO 0.06 K/uL (0.00-0.20); BASOPHILS PERCENT AUTO 0.8 % (0.0-1.0); EOSINOPHILS ABSOLUTE AUTO 0.04 K/uL (0.00-0.45); EOSINOPHILS PERCENT AUTO 0.5 % (0.0-6.0); IMMATURE GRAN ABSOLUTE AUTO 0.05 K/uL (0.00-0.05); IMMATURE GRAN PERCENT AUTO 0.6 % (0.0-0.4); LYMPHOCYTES ABSOLUTE AUTO 1.23 K/uL (1.00-4.80); LYMPHOCYTES PERCENT AUTO 15.9 % (24.0-44.0); MEAN PLATELET VOLUME 10.0 fL (9.4-12.3); MONOCYTES ABSOLUTE AUTO 0.48 K/uL (0.00-0.80); MONOCYTES PERCENT AUTO 6.2 % (0.0-8.0); NEUTROPHILS ABSOLUTE AUTO 5.88 K/uL (1.80-7.70); NEUTROPHILS PERCENT AUTO 76.0 % (41.0-71.0); NRBC ABSOLUTE 0.00 K/uL (0.00-0.02); NRBC PERCENT 0.0 /100WBC (0.0-0.2); PLATELET COUNT,PLT 225 K/uL (150-400); RED BLOOD CELL COUNT 4.07 M/uL (4.10-5.30); WHITE BLOOD CELL COUNT,WBC 7.74 K/uL (3.9-11.3)
[2024-09-04 06:58] LABS: BLOOD UREA NITROGEN,BUN 19.0 mg/dL (7.0-18.0); CARBON DIOXIDE,CO2 31.3 mmol/L (21.0-32.0); CHLORIDE,CL 102.0 mmol/L (98-107); CREATININE 0.8 mg/dL (0.6-1.0); EST CRCL DRUG DOSING (CG) 46.33 mL/min; GLUCOSE RANDOM 114.0 mg/dL (74-106); POTASSIUM,K 4.3 mmol/L (3.5-5.1); SODIUM,NA 140.0 mmol/L (136-145)
[2024-09-04 07:05] LABS: ESTIMATED GFR 79.0 mL/min (>60)
[2024-09-05 05:30] LABS: BASOPHILS ABSOLUTE AUTO 0.05 K/uL (0.00-0.20); BASOPHILS PERCENT AUTO 0.6 % (0.0-1.0); EOSINOPHILS ABSOLUTE AUTO 0.15 K/uL (0.00-0.45); EOSINOPHILS PERCENT AUTO 1.9 % (0.0-6.0); IMMATURE GRAN ABSOLUTE AUTO 0.06 K/uL (0.00-0.05); IMMATURE GRAN PERCENT AUTO 0.8 % (0.0-0.4); LYMPHOCYTES ABSOLUTE AUTO 1.58 K/uL (1.00-4.80); LYMPHOCYTES PERCENT AUTO 20.4 % (24.0-44.0); MEAN PLATELET VOLUME 9.9 fL (9.4-12.3); MONOCYTES ABSOLUTE AUTO 0.60 K/uL (0.00-0.80); MONOCYTES PERCENT AUTO 7.7 % (0.0-8.0); NEUTROPHILS ABSOLUTE AUTO 5.31 K/uL (1.80-7.70); NEUTROPHILS PERCENT AUTO 68.6 % (41.0-71.0); NRBC ABSOLUTE 0.00 K/uL (0.00-0.02); NRBC PERCENT 0.0 /100WBC (0.0-0.2); PLATELET COUNT,PLT 235 K/uL (150-400); RED BLOOD CELL COUNT 4.37 M/uL (4.10-5.30); WHITE BLOOD CELL COUNT,WBC 7.75 K/uL (3.9-11.3)
[2024-09-05 05:54] LABS: BLOOD UREA NITROGEN,BUN 18.0 mg/dL (7.0-18.0); CARBON DIOXIDE,CO2 33.4 mmol/L (21.0-32.0); CHLORIDE,CL 103.0 mmol/L (98-107); CREATININE 0.9 mg/dL (0.6-1.0); EST CRCL DRUG DOSING (CG) 41.18 mL/min; GLUCOSE RANDOM 114.0 mg/dL (74-106); POTASSIUM,K 4.5 mmol/L (3.5-5.1); SODIUM,NA 140.0 mmol/L (136-145)
[2024-09-05 05:55] LABS: ESTIMATED GFR 68.0 mL/min (>60)
[2024-09-05] MEDS ORDERED: Albuterol 0.083% 2.5 MG/3 ML Neb Soln NEB PRN (09:13)
[2024-09-05] MEDS ORDERED: Ondansetron 4 MG/2 ML SDV IVPUSH PRN (09:13)
[2024-09-05] MEDS ORDERED: Naloxone 0.4 MG/ML SDV IVPUSH PRN (09:13)
[2024-09-05] MEDS ORDERED: fentaNYL 50 MCG/ML SDV IVPUSH PRN (09:13)
[2024-09-05] MEDS ORDERED: propofoL 500 MG/50 ML 50 ML ONE ×2 (10:06→14:52)
[2024-09-05] MEDS ORDERED: Ketamine HCL/NACL, ISO-OSM 50 MG/5 ML Syringe ONE ×2 (10:07→14:19)
[2024-09-05] MEDS ORDERED: fentaNYL 100 MCG/2 ML SDV ONE ×2 (10:07→13:53)
[2024-09-05] MEDS ORDERED: dexmedeTOMIDine HCl 200 MCG/2 ML SDV ONE (10:08)
[2024-09-05] MEDS ORDERED: ROPIVACAINE INJECT SCH (12:45)
[2024-09-05] MEDS ORDERED: [UNRECOGNIZED DRUG - OTHER] INJECT SCH (12:45)
[2024-09-05] MEDS ORDERED: CLONIDINE INJECT SCH (12:45)
[2024-09-05] MEDS ORDERED: EPINEPHRINE INJECT SCH (12:45)
[2024-09-05] MEDS ORDERED: Propofol 200 MG/20 ML SDV ONE (13:00)
[2024-09-05] MEDS ORDERED: fentaNYL 250 MCG/5 ML SDV ONE (13:31)
[2024-09-05] MEDS ORDERED: Dexamethasone 4 MG/ML 5 ML MDV ONE (14:53)
[2024-09-05] MEDS ORDERED: Ondansetron 4 MG/2 ML SDV ONE (14:53)
[2024-09-05] MEDS: ceFAZolin 2 GM in Water For Injection, Sterile 20 ML IVPUSH ONE (17:05)
[2024-09-06 06:34] LABS: BASOPHILS ABSOLUTE AUTO 0.03 K/uL (0.00-0.20); BASOPHILS PERCENT AUTO 0.3 % (0.0-1.0); EOSINOPHILS ABSOLUTE AUTO 0.02 K/uL (0.00-0.45); EOSINOPHILS PERCENT AUTO 0.2 % (0.0-6.0); IMMATURE GRAN ABSOLUTE AUTO 0.04 K/uL (0.00-0.05); IMMATURE GRAN PERCENT AUTO 0.4 % (0.0-0.4); LYMPHOCYTES ABSOLUTE AUTO 1.23 K/uL (1.00-4.80); LYMPHOCYTES PERCENT AUTO 11.1 % (24.0-44.0); MEAN PLATELET VOLUME 9.9 fL (9.4-12.3); MONOCYTES ABSOLUTE AUTO 0.56 K/uL (0.00-0.80); MONOCYTES PERCENT AUTO 5.0 % (0.0-8.0); NEUTROPHILS ABSOLUTE AUTO 9.21 K/uL (1.80-7.70); NEUTROPHILS PERCENT AUTO 83.0 % (41.0-71.0); NRBC ABSOLUTE 0.00 K/uL (0.00-0.02); NRBC PERCENT 0.0 /100WBC (0.0-0.2); PLATELET COUNT,PLT 249 K/uL (150-400); RED BLOOD CELL COUNT 3.89 M/uL (4.10-5.30); WHITE BLOOD CELL COUNT,WBC 11.09 K/uL (3.9-11.3)
[2024-09-06 06:54] LABS: BLOOD UREA NITROGEN,BUN 21.0 mg/dL (7.0-18.0); CARBON DIOXIDE,CO2 32.1 mmol/L (21.0-32.0); CHLORIDE,CL 102.0 mmol/L (98-107); CREATININE 0.9 mg/dL (0.6-1.0); EST CRCL DRUG DOSING (CG) 41.18 mL/min; GLUCOSE RANDOM 102.0 mg/dL (74-106); POTASSIUM,K 4.2 mmol/L (3.5-5.1); SODIUM,NA 138.0 mmol/L (136-145)
[2024-09-06 07:01] LABS: ESTIMATED GFR 68.0 mL/min (>60)
[2024-09-08 05:56] LABS: BASOPHILS ABSOLUTE AUTO 0.02 K/uL (0.00-0.20); BASOPHILS PERCENT AUTO 0.2 % (0.0-1.0); EOSINOPHILS ABSOLUTE AUTO 0.01 K/uL (0.00-0.45); EOSINOPHILS PERCENT AUTO 0.1 % (0.0-6.0); IMMATURE GRAN ABSOLUTE AUTO 0.07 K/uL (0.00-0.05); IMMATURE GRAN PERCENT AUTO 0.6 % (0.0-0.4); LYMPHOCYTES ABSOLUTE AUTO 0.91 K/uL (1.00-4.80); LYMPHOCYTES PERCENT AUTO 7.5 % (24.0-44.0); MEAN PLATELET VOLUME 10.3 fL (9.4-12.3); MONOCYTES ABSOLUTE AUTO 0.47 K/uL (0.00-0.80); MONOCYTES PERCENT AUTO 3.9 % (0.0-8.0); NEUTROPHILS ABSOLUTE AUTO 10.71 K/uL (1.80-7.70); NEUTROPHILS PERCENT AUTO 87.7 % (41.0-71.0); NRBC ABSOLUTE 0.00 K/uL (0.00-0.02); NRBC PERCENT 0.0 /100WBC (0.0-0.2); PLATELET COUNT,PLT 259 K/uL (150-400); RED BLOOD CELL COUNT 3.69 M/uL (4.10-5.30); WHITE BLOOD CELL COUNT,WBC 12.19 K/uL (3.9-11.3)
[2024-09-08 06:16] LABS: BLOOD UREA NITROGEN,BUN 24.0 mg/dL (7.0-18.0); CARBON DIOXIDE,CO2 30.3 mmol/L (21.0-32.0); CHLORIDE,CL 98.0 mmol/L (98-107); CREATININE 0.8 mg/dL (0.6-1.0); EST CRCL DRUG DOSING (CG) 46.33 mL/min; GLUCOSE RANDOM 130.0 mg/dL (74-106); POTASSIUM,K 4.3 mmol/L (3.5-5.1); SODIUM,NA 132.0 mmol/L (136-145)
[2024-09-08 06:36] LABS: ESTIMATED GFR 79.0 mL/min (>60)
[2024-09-09 13:10] LABS: BASOPHILS ABSOLUTE AUTO 0.03 K/uL (0.00-0.20); BASOPHILS PERCENT AUTO 0.3 % (0.0-1.0); EOSINOPHILS ABSOLUTE AUTO 0.06 K/uL (0.00-0.45); EOSINOPHILS PERCENT AUTO 0.6 % (0.0-6.0); IMMATURE GRAN ABSOLUTE AUTO 0.07 K/uL (0.00-0.05); IMMATURE GRAN PERCENT AUTO 0.7 % (0.0-0.4); LYMPHOCYTES ABSOLUTE AUTO 0.97 K/uL (1.00-4.80); LYMPHOCYTES PERCENT AUTO 9.8 % (24.0-44.0); MEAN PLATELET VOLUME 10.0 fL (9.4-12.3); MONOCYTES ABSOLUTE AUTO 0.41 K/uL (0.00-0.80); MONOCYTES PERCENT AUTO 4.1 % (0.0-8.0); NEUTROPHILS ABSOLUTE AUTO 8.37 K/uL (1.80-7.70); NEUTROPHILS PERCENT AUTO 84.5 % (41.0-71.0); NRBC ABSOLUTE 0.00 K/uL (0.00-0.02); NRBC PERCENT 0.0 /100WBC (0.0-0.2); PLATELET COUNT,PLT 292 K/uL (150-400); RED BLOOD CELL COUNT 3.87 M/uL (4.10-5.30); WHITE BLOOD CELL COUNT,WBC 9.91 K/uL (3.9-11.3)
[2024-09-09 13:28] LABS: BLOOD UREA NITROGEN,BUN 21.0 mg/dL (7.0-18.0); CARBON DIOXIDE,CO2 29.8 mmol/L (21.0-32.0); CHLORIDE,CL 101.0 mmol/L (98-107); CREATININE 0.9 mg/dL (0.6-1.0); EST CRCL DRUG DOSING (CG) 41.18 mL/min; GLUCOSE RANDOM 129.0 mg/dL (74-106); POTASSIUM,K 4.3 mmol/L (3.5-5.1); SODIUM,NA 139.0 mmol/L (136-145)
[2024-09-09 13:31] LABS: ESTIMATED GFR 68.0 mL/min (>60)
== END 2024-09-10 10:02 | DRG 522 ==
LOC: MW.ED 15:46 → MW.MS 09-02 02:17 → OBSVTOIN 09-02 10:28 → MW.MS 09-02 13:38
PROVIDERS: ADMIT Family Medicine; ATTEND Family Medicine
PROC: 3E03329 Introduction of Other Anti-infective into Peripheral Vein, Percutaneous Approach (ICD-10-PCS; 2024-09-02)
PROC: 0SR9049 Replacement of Right Hip Joint with Ceramic on Polyethylene Synthetic Substitute, Cemented, Open Approach (ICD-10-PCS; principal; 2024-09-05 13:00)
DX: S72.001A Fracture of unspecified part of neck of right femur, initial encounter for closed fracture (principal); M87.051 Idiopathic aseptic necrosis of right femur; M79.10 Myalgia, unspecified site; R79.89 Other specified abnormal findings of blood chemistry; N17.9 Acute kidney failure, unspecified; N30.00 Acute cystitis without hematuria; N39.0 Urinary tract infection, site not specified; M19.90 Unspecified osteoarthritis, unspecified site; E11.9 Type 2 diabetes mellitus without complications; H54.7 Unspecified visual loss; Z88.8 Allergy status to other drugs, medicaments and biological substances; Z79.84 Long term (current) use of oral hypoglycemic drugs; E78.00 Pure hypercholesterolemia, unspecified; I10 Essential (primary) hypertension; F41.9 Anxiety disorder, unspecified; F32.A Depression, unspecified; R74.8 Abnormal levels of other serum enzymes; E87.6 Hypokalemia; E11.69 Type 2 diabetes mellitus with other specified complication; E66.01 Morbid (severe) obesity due to excess calories; R26.2 Difficulty in walking, not elsewhere classified; I45.10 Unspecified right bundle-branch block; W18.30XA Fall on same level, unspecified, initial encounter; R00.8 Other abnormalities of heart beat; I49.8 Other specified cardiac arrhythmias; Y92.89 Other specified places as the place of occurrence of the external cause; Z88.0 Allergy status to penicillin; Z88.5 Allergy status to narcotic agent; Z98.49 Cataract extraction status, unspecified eye; Z88.1 Allergy status to other antibiotic agents; Z79.899 Other long term (current) drug therapy; Z68.32 Body mass index [BMI] 32.0-32.9, adult; Z79.82 Long term (current) use of aspirin
CPT/HCPCS: 36415 ×2; 71045; 80048; 80053; 81001; 82550 ×2; 82947; 83690; 83735 ×2; 83880; 84484 ×2; 85025 ×2; 85610; 85730; 87086; 87088; 87186; 93005; 93306; 96361; 96374; 96375; 99285; A9270 ×7; J0696; J3480 ×3; J7030; J7040 ×2; 01214; 730302650; 73030-50; 73521; 73521-26; 735602650; 73560-50; 83540; 93010; 96365; 96366; 96376; 97110-GO; 97110-GP; 97162-GP; 97163-GP; 97165-GO; 97530-GO; 97530-GP; C1713; G0378; J0166; J0690; J0735; J1100; J1171; J1308; J1650; J1815-GY; J2405; J2704; J2795; J3010; J3475; J3490